=== PATIENT | male | born 1965 | race Two or more races ===

== ENCOUNTER 2023-12-31 22:58 | Emergency (ER) | payer OTHER, MEDICAID ==
[~2023-12-31] VITALS: Ht 182.9 cm; Wt 65.0 kg
[2023-12-31 23:06] VITALS: BP 136/69; PULSE 87; RESP 16; TEMP 97.7; O2SAT 97
== END 2024-01-01 00:57 | disposition home or self-care (01) ==
LOC: ER 22:58
DX: H53.8 Other visual disturbances (principal); R51.9 Headache, unspecified; E11.9 Type 2 diabetes mellitus without complications; I10 Essential (primary) hypertension; E78.5 Hyperlipidemia, unspecified; Z88.0 Allergy status to penicillin
CPT/HCPCS: 82962

== ENCOUNTER 2024-11-04 01:30 | Inpatient (IN) | payer OTHER, MEDICAID ==
[~2024-11-04] VITALS: Ht 165.1 cm; Wt 87.2 kg
[2024-11-04] VITALS (7 sets, daily range): BP systolic 120–141; BP diastolic 61–91; PULSE 65–95; RESP 17–20; TEMP 97.3–97.7; O2SAT 95–98
[~2024-11-04 01:30] MED LIST: ASPI-325 PO; ATOR-47 PO; FURO40TA4 PO; LISI20TA56 PO; METO10TA4 PO; NIFE1TAB31 PO; TAMS0.4C39 PO
--- NOTE | 2024-11-04 02:08 | ED.PDOC ---
History of Present Illness HPI Comments 58-year-old male who came to ER via EMS for testicular swelling. In has history of hypertension, diabetes, congestive heart failure, status post left BKA, right AKA. Patient is wheelchair/bed-bound. For the past 2 weeks noted swelling withdrawal lower extremities/groin area. Denies any fever, nausea, vomiting or urinary symptoms. Noted also decubitus ulcers. Patient also complaining of productive cough for over a year. Denies any acute chest pain or shortness of breath. Chief Complaint: Testicle Pain Time Seen by MD: 02:08 Reviewed Notes: Cutting Table Operator Notes Allergies: Coded Allergies: Penicillins (Verified Allergy, Unknown, 12/31/23) Information Source: Emergency Med Personnel Mode of Arrival: EMS Severity: Moderate Timing: Weeks Duration: Since onset Past Medical History PAST MEDICAL HISTORY: CHF, DM, High Lipids, HTN Surgical History: AKA (right), BKA (left) Family History Family History: Reviewed,noncontributory to illness Social History Smoker: Non-Smoker Alcohol: Denies ETOH Use Drugs: Denies Drug Use Lives In: Home Constitutional: reports: others (Swelling of both lower extremities, groin area); denies: chills, diaphoresis, fatigue, fever, malaise, sweats, weakness EENTM: denies: blurred vision, double vision, ear bleeding, ear discharge, ear drainage, ear pain, ear ringing, eye pain, eye redness, hearing loss, mouth pain, mouth swelling, nasal discharge, nose bleeding, nose congestion, nose pain, photophobia, tearing, throat pain, throat swelling, voice changes, others Respiratory: denies: cough, hemoptysis, orthopnea, SOB at rest, shortness of breath, SOB with excertion, stridor, wheezing, others Cardiovascular: denies: chest pain, dizzy spells, diaphoresis, Dyspnea on exe rtion, edema, irregular heart beat, left arm pain, lightheadedness, palpitations, PND, syncope, others Gastrointestinal: denies: abdomen distended, abdominal pain, blood streaked bowels, constipated, diarrhea, dysphagia, difficulty swallowing, hematemesis, melena, nausea, poor appetite, poor fluid intake, rectal bleeding, rectal pain, vomiting, others Genitourinary: denies: burning, dysuria, flank pain, frequency, hematuria, incontinence, penile discharge, penile sore, pain, testicle pain, testicle swelling, urgency, others Neurological: denies: dizziness, fainting, headache, left sided numbness, left sided weakness, numbness, paresthesia, pre-existing deficit, right sided numbness, right sided weakness, seizure, speech problems, tingling, tremors, weakness, others Musculoskeletal: denies: back pain, gout, joint pain, joint swelling, muscle pain, muscle stiffness, neck pain, others Integumetry: denies: bruises, change in color, change in hair/nails, dryness, laceration, lesions, lumps, rash, wounds, others Allergic/Immunocompromised: denies: Difficulty Healing, Frequent Infections, Hives, Itching, others Hematologic/Lymphatic: denies: anemia, blood clots, easy bleeding, easy bruising, swollen glands, others Endocrine: denies: excessive hunger, excessive sweating, excessive thirst, excessive urination, flushing, intolerance to cold, intolerance to heat, unexplained weight gain, unexplained weight loss, others Psychiatric: denies: anxiety, bipolar disorder, depression, hopeless, panic disorder, schizophrenia, sleepless, suicidal, others Physical Exam General Appearance: No Apparent Distress, Normal HEENT: Normal ENT Inspection, Pharynx Normal, TMs Normal Neck: Full Range of Motion, Non-Tender, Normal, Normal Inspection Respiratory: Chest Non-Tender, Lungs Clear, No Accessory Muscle Use, No Respiratory Distress, Normal Breath Sounds Cardiovascular: No Edema, No JVD, No Murmur, No Gallop, Normal Peripheral Pulses, Regular Rate/Rhythm Breast Exam: Deferred Gastrointestinal: No Organomegaly, Non Tender, No Pulsatile Mass, Normal Bowel Sounds, Soft Genitalia: Deferred Pelvic: Deferred Rectal: Deferred Extremities: No calf tenderness, Normal capillary refill, Normal inspection, Normal range of motion, Non-tender, No pedal edema Musculoskeletal : Apperance: Normal Neurologic: Alert, automatic teller machine servicer II-XII nml as Tested, No Motor Deficits, Normal Affect, Normal Mood, No Sensory Deficits Cerebellar Function: Normal Reflexes: Normal Skin: Dry, Normal Color, Warm Lymphatic: No Adenopathy Was a procedure done? Was a procedure done?: No Differential Dx Considerations may include: Anemia, electrolyte imbalance, sepsis, urinary tract infection, cellulitis, congestive heart failure, orchitis, decubitus ulcer X-Ray, Labs, Meds, VS Vital Signs Date Time Temp Pulse Resp B/P (MAP) Pulse Ox O2 Delivery O2 Flow Rate FiO2 11/04/24 04:00 88 22 140/84 (102) 96 11/04/24 03:55 139/81 11/04/24 03:14 143/88 11/04/24 02:00 95 20 98 Room Air* 0 21 11/04/24 01:55 97.7 93 15 163/91 (115) 97 97.7 11/04/24 01:30 98.6 90 16 141/111 (121) 100 98.6 Lab Test 11/04/24 02:30 Range/Units White Blood Count 11.2 H 4.4-10.8 10^3/uL Red Blood Count 4.89 4.5-5.90 10^6/uL Hemoglobin 15.2 13.5-17.5 g/dL Hematocrit 46.6 41.0-53.0 % Mean Corpuscular Volume 95.2 80.0-100.0 fL Mean Corpuscular Hemoglobin 31.0 28.0-32.0 pg Mean Corpuscular Hemoglobin Concent 32.6 32.0-36.0 g/dL Red Cell Distribution Width 17.1 H 11.8-14.3 % Platelet Count 243 140-450 10^3/uL Mean Platelet Volume 8.9 6.9-10.8 fL Neutrophils (%) (Auto) 86.5 H 37.0-80.0 % Lymphocytes (%) (Auto) 8.3 L 10.0-50.0 % Monocytes (%) (Auto) 4.5 0.0-12.0 % Eosinophils (%) (Auto) 0.3 0.0-7.0 % Basophils (%) (Auto) 0.4 0.0-2.0 % Neutrophils # (Auto) 9.7 H 1.6-8.6 10 ^3/uL Lymphocytes # (Auto) 0.9 0.4-5.4 10 ^3/uL Monocytes # (Auto) 0.5 0-1.3 10 ^3/uL Eosinophils # (Auto) 0 0-0.8 10 ^3/uL Basophils # (Auto) 0 0-0.2 10 ^3/uL Nucleated Red Blood Cells 0.1 % Sodium Level 137 136-145 mmol/L Potassium Level 4.6 3.5-5.1 mmol/L Chloride Level 105 98-107 mmol/L Carbon Dioxide Level 21 20-31 mmol/L Anion Gap 11 5-15 Blood Urea Nitrogen 39 H 9-23 mg/dL Creatinine 1.60 H 0.700-1.30 mg/dL Glomerular Filtration Rate Calc 49 >90 mL/min BUN/Creatinine Ratio 24.4 H 10.0-20.0 Serum Glucose 126 H 74-106 mg/dL Lactic Acid Level 2.8 *H 0.4-2.0 mmol/L Calcium Level 8.8 8.7-10.4 mg/dL Total Bilirubin 1.0 0.2-1.0 mg/dL Aspartate Amino Transferase (AST) 18 13-40 U/L Alanine Aminotransferase (ALT) 11 7-40 U/L Alkaline Phosphatase 365 H 46-116 U/L Troponin I High Sensitivity 12 </=54 ng/L B-Type Natriuretic Peptide 1987.60 0-100 pg/mL Total Protein 7.4 5.7-8.2 g/dL Albumin 3.8 3.2-4.8 g/dL Current Medications Medications (Trade) Dose Ordered Sig/Margo Route Start Time Stop Time Status Last Admin Furosemide (Lasix Injection) 20 mg ONCE ONCE IV 11/04/24 02:15 11/04/24 02:16 DC 11/04/24 03:14 Sodium Chloride 1,000 ml @ 1,000 mls/hr Q1H ONCE IV 11/04/24 03:45 11/04/24 04:44 11/04/24 03:43 Furosemide (Lasix Injection) 40 mg ONCE ONCE IV 11/04/24 03:45 11/04/24 03:46 DC 11/04/24 03:55 Cefazolin Sodium 50 ml @ 100 mls/hr ONCE ONCE IV 11/04/24 03:45 11/04/24 04:14 DC 11/04/24 03:43 Vancomycin HCl 200 ml @ 200 mls/hr ONCE ONCE IV 11/04/24 03:45 11/04/24 04:44 11/04/24 04:19 Time of 1ST Reevaluation: 02:03 Reevaluation 1ST: Unchanged Patient Education/Counseling: Diagnosis, Treatment Family Education/Counseling: No Family Present Sepsis focused exam: focus exam completed (In the initial resuscitation at least 30 mL/kg of IV crystalloid fluid was NOT given within the first 3 hr due to concerns of fluid overload), time: (0400) Sepsis Sepsis Reasesment Focused Exam Sepsis focused exam: focus exam completed (In the initial resuscitation at least 30 mL/kg of IV crystalloid fluid was NOT given within the first 3 hr due to concerns of fluid overload), time: (0400) Departure 1 Departure Time of Disposition: 04:41 Impression: Primary Impression: Acute renal injury Additional Impressions: CHF (congestive heart failure) Cellulitis of both lower extremities Disposition: ADMITTED INPATIENT Condition: Guarded Discharged With: Self Comments Lower Extremity Swelling and Cellulitis Chief Complaint: Bilateral leg stump swelling and scrotal edema History of Present Illness: 58-year-old male with history of bilateral lower extremity amputations (left BKA, right AKA), poorly controlled type 2 diabetes, hypertension, and CHF presents with two weeks of progressive swelling to both leg stumps and scrotum. Patient reports associated redness in both legs. Patient is normally bed bound. The symptoms have been present for approximately two weeks with no reported improvement. Review of Systems: Constitutional: Denies fever or chills Cardiovascular: Positive for leg swelling Skin: Positive for redness of lower extremities All other systems reviewed and negative Medications: Not documented in aids counselor Allergies: Not documented in aids counselor Past Medical History: 1. Type 2 Diabetes Mellitus, poorly controlled 2. Hypertension 3. Congestive Heart Failure Past Surgical History: 1. Left Below Knee Amputation (BKA) 2. Right Above Knee Amputation (AKA) Physical Exam: Lower Extremities: - 2-3+ edema to bilateral leg stumps - Mild erythema to bilateral lower extremities Genitourinary: - Scrotal edema present Lab Results: WBC: 11.2 (Elevated) BUN: 39 Creatinine: 1.6 Glucose: 126 Troponin: 12 (Normal) BNP: 1, 987 (Elevated) Lactic acid: 2.8 (Elevated) Imaging and Other Relevant Results: No imaging studies documented Medical Decision Making: Summary Statement: 58-year-old male with history of bilateral leg amputations, poorly controlled diabetes, and CHF presenting with bilateral leg stump swelling, scrotal edema, and early cellulitis, complicated by acute kidney injury and elevated BNP. Problem List: 1. Cellulitis of bilateral leg stumps 2. Acute kidney injury 3. CHF exacerbation 4. Elevated lactic acid Differential Diagnosis: 1. Cellulitis 2. CHF exacerbation 3. Acute kidney injury 4. DVT 5. Lymphedema ED Course: Patient received 1L IV fluids, Lasix for volume overload, and broad-spectrum antibiotics (Ancef and Vancomycin) for cellulitis. Decision made to admit for further management. Assessment and Plan: 1. Cellulitis of bilateral leg stumps: - Started on IV Ancef and Vancomycin - Monitor response to antibiotics - Elevation of extremities 2. Acute Kidney Injury: - Likely multifactorial from CHF and infection - Monitor fluid status and urine output - Serial creatinine measurements 3. CHF Exacerbation: - Administered IV Lasix - Monitor response to diuresis - Daily weights 4. Elevated Lactic Acid: - Initial fluid resuscitation given - Trending levels Disposition: Admit to medical floor for management of above conditions Billing Information: ICD-10: L03.115 - Cellulitis of right lower limb ICD-10: L03.116 - Cellulitis of left lower limb ICD-10: N17.9 - Acute kidney failure, unspecified ICD-10: I50.9 - Heart failure, unspecified ICD-10: E11.9 - Type 2 diabetes mellitus without complications Critical Care Note Critical Care Time?: Yes (35 min-critical care time only) Critical care comment: Total critical care time: Approximately 36 minutes Due to a high probability of clinically significant, life threatening deterioration, the patient required my highest level of preparedness to interv trent emergently and I personally spent this critical care time directly and personally managing the patient. This critical care time included obtaining a history; examining the patient; pulse oximetry; ordering and review of studies; arranging urgent treatment with development of a management plan; evaluation of patient's response to treatment; frequent reassessment; and, discussions with other providers. This critical care time was performed to assess and manage the high probability of imminent, life-threatening deterioration that could result in multi-organ failure. It was exclusive of separately billable procedures and treating other patients. Stability Stability form required: No Heart Score Heart Score: Heart Score Response (Comments) Value History N/A 0 EKG N/A 0 Age N/A 0 Risk Factors N/A 0 Troponin N/A 0 Total 0 I personally scribed for REBECA RAMOS MD ([email or web address]) on 11/04/24 at 02:08. Electronically submitted by Oswaldo Sullivan ([email or web address]). REBECA RAMOS MD November 04, 2024 02:08
[2024-11-04 02:41] LABS: Basophils # (auto) 0 10 ^3/uL (0-0.2); Basophils % (auto) 0.4 % (0.0-2.0); Eosinophils # (auto) 0 10 ^3/uL (0-0.8); Eosinophils % (auto) 0.3 % (0.0-7.0); Hematocrit 46.6 % (41.0-53.0); Hemoglobin 15.2 g/dL (13.5-17.5); Lymphocytes # (auto) 0.9 10 ^3/uL (0.4-5.4); Lymphocytes % (auto) 8.3 % (10.0-50.0); Mean Corpuscular Hgb Conc. 32.6 g/dL (32.0-36.0); Mean Corpuscular Volume 95.2 fL (80.0-100.0); Monocytes # (auto) 0.5 10 ^3/uL (0-1.3); Monocytes % (auto) 4.5 % (0.0-12.0); Neutrophils # (auto) 9.7 10 ^3/uL (1.6-8.6); Neutrophils % (auto) 86.5 % (37.0-80.0); Nucleated Red Blood Cells % 0.1 %; Platelet Count (auto) 243 10^3/uL (140-450); Red Blood Cells 4.89 10^6/uL (4.5-5.90); Red Cell Distribution Width 17.1 % (11.8-14.3); White Blood Cell 11.2 10^3/uL (4.4-10.8)
[2024-11-04 02:59] LABS: Alanine Aminotransferase 11 U/L (7-40); Albumin 3.8 g/dL (3.2-4.8); Anion Gap 11 (5-15); Aspartate Aminotransferase 18 U/L (13-40); BUN/Creatinine Ratio 24.4 (10.0-20.0); Calcium 8.8 mg/dL (8.7-10.4); Carbon Dioxide 21 mmol/L (20-31); Chloride 105 mmol/L (98-107); Potassium 4.6 mmol/L (3.5-5.1); Sodium 137 mmol/L (136-145); Total Protein 7.4 g/dL (5.7-8.2)
[2024-11-04 03:00] LABS: Alkaline Phosphatase 365 U/L (46-116); Blood Urea Nitrogen 39 mg/dL (9-23); Glucose 126 mg/dL (74-106)
[2024-11-04] MEDS: FUROSEMIDE 20 MG/2 ML VIAL IV ONE (03:14)
[2024-11-04 03:28] LABS: Lactic Acid w/Reflex 2.8 mmol/L (0.4-2.0)
[2024-11-04] MEDS: ceFAZolin 1GM/50ML 50 ML IV ONE (03:43)
[2024-11-04] MEDS: SODIUM CHLORIDE 0.9% 1,000 ML IV ONE (03:43)
[2024-11-04] MEDS: FUROSEMIDE 40 MG/4 ML VIAL IV ONE (03:55)
--- NOTE | 2024-11-04 04:16 | DVH ---
CHEST RADIOGRAPH Indication: CHF Technique: Single frontal view of the chest was obtained Comparison: None IMPRESSION: The heart appears enlarged median sternotomy wires and postsurgical changes. There is airspace opacif ication of the right lower lobe with possible small to moderate right pleural effusion. Small left p leural effusion. Mild pulmonary vascular congestion. No pneumothorax.
[2024-11-04] MEDS: VANCOMYCIN 1GM/200ML PM 200 ML IV ONE (04:19)
[2024-11-04 05:16] LABS: Urine Bacteria None Seen /hpf (None Seen)
[2024-11-04 05:28] LABS: Urine Blood 1+ /uL (Negative); Urine Clarity Clear (Clear); Urine Color Light-Yellow (Yellow); Urine Protein, UAD 1+ (Negative); Urine Specific Gravity 1.013 (1.001-1.035); Urine Squamous Epithelial Cell FEW /hpf (<5); Urine Urobilinogen Normal (Negative); Urine WBC < 1 /HPF (0-3)
[2024-11-04] MEDS ORDERED: HYDROcodone-ACET 5/325MG TAB PO PRN (05:45)
[2024-11-04] MEDS ORDERED: hydrALAZINE HCL 20 MG/ML VL IV PRN (05:45)
[2024-11-04] MEDS ORDERED: NITROGLYCERIN 0.4 MG SL TAB SL PRN (05:45)
[2024-11-04] MEDS ORDERED: DEXTROSE (50%) 50ML SYRG IV PRN (05:45)
[2024-11-04] MEDS ORDERED: VANCOMYCIN PER PHARMACY 0 MG IV SCH (05:45)
[2024-11-04] MEDS ORDERED: DOCUSATE SOD 100 MG CAP PO PRN (05:45)
[2024-11-04] MEDS ORDERED: ACETAMINOPHEN 325 MG TAB PO PRN (05:45)
[2024-11-04] MEDS ORDERED: MORPHINE SULFATE INJ 2 MG/ml SYRG IV PRN (05:45)
[2024-11-04] MEDS ORDERED: ONDANSETRON HCL 4 MG/2 ML VIAL IV PRN (05:45)
--- NOTE | 2024-11-04 06:03 | DVHHP2 ---
History of Present Illness Reason for Visit: Acute exacerbation of congestive heart failure History of Present Illness The patient is a 58-year-old male wheelchair/bed-bound with past medical history of CHF, DM, hyperlipidemia, and hypertension who presented to [facility] ED with complaint of testicular swelling. Patient reports swelling of the lower extremities and groin area for the past 2 weeks, getting worse today that prompted this visit. Patient was seen and evaluated in the ED, laboratory data shows WBC 11.2, platelets 243, sodium 137, potassium 4.6, BUN 39, creatinine 1.60, glucose 126, troponin 12, lactic acid 2.5 trending down, BNP 1987.60, blood pressure 140/84, heart rate 88, temperature 97.7 F, O2 saturation 96% on oxygen. Chest x-ray revealing airspace opacification of the right lower lobe with possible small to moderate right pleural effusion, small left pleural effusion, mild pulmonary vascular congestion, no pneumothorax, h eart appears enlarged median sternotomy wires and postsurgical changes. Patient was started on IV Lasix, please see medication orders section in the computer. On my assessment, patient denied chest pain, no headache, no dizziness, no diaphoresis, currently on oxygen, no nausea, no vomiting, no fever, no chills. Patient was admitted for further evaluation and medical management. Past Medical History CHF, DM, High Lipids, HTN Past Surgical History Above-knee amputation (right), Below-knee amputation (left) Family History Reviewed, noncontributory to the management of this case. Past Social History The patient lives at home, denies smoking, alcohol or illicit drugs abuse. Review of Systems Constitutional: Yes: Weakness; No: Fever, Chills, Sweats, Malaise, Other Eyes: No: Pain, Vision change, Conjunctivae inflammation, Eyelid inflammation, Other, Redness ENT: No: Ear pain, Ear discharge, Nose pain, Nose discharge, Nose congestion, Mouth pain, Mouth swelling, Throat pain, Throat swelling, Other Respiratory: No: Cough, Dry, Shortness of breath, SOB with excertion, Wheezing, Hemoptysis, Pleuritic Pain, Sputum, Wheezing, Other Cardiovascular: Edema; No: Chest Pain, Palpitations, Orthopnea, Paroxysmal Noc. Dyspnea, Lt Headedness, Other Gastrointestinal: No: Nausea, Vomiting, Abdominal Pain, Diarrhea, Constipation, Melena, Hematochezia, Other Genitourinary: No Dysuria, No Frequency, No Incontinence, No Hematuria, No Retention; Other (Testicular swelling) Musculoskeletal: other (Right AKA, left BKA.); No: neck pain, shoulder pain, arm pain, back pain, hand pain, leg pain, foot pain Skin: Other (Lower extremity skin redness); No: Rash, Lesions, Jaundice, Bruising Neurological: No: Weakness, Numbness, Incoordination, Change in speech, Confusion, Seizures, Other Allergies: Coded Allergies: Penicillins (Verified Allergy, Unknown, 12/31/23) Exam Vital Signs Vital Signs Date Time Temp Pulse Resp B/P (MAP) Pulse Ox O2 Delivery O2 Flow Rate FiO2 11/04/24 04:00 88 22 140/84 (102) 96 11/04/24 02:00 Room Air* 0 21 11/04/24 01:55 97.7 97.7 General Appearance: Alert, Oriented X3, Cooperative, No acute distress HEENT: Atraumatic, PERRLA, EOMI, Mucous membr. moist/pink Respiratory: Normal air movement, Other (Congestion) Cardiovascular: Regular rate, Normal S1, Normal S2, No murmurs Abdominal: Normal bowel sounds, Soft, No tenderness, No hepatospenomegaly, No masses Extremities: No clubbing, No cyanosis, No edema, Normal pulses, Other (Lower extremity swelling) Skin: No rashes, No breakdown, No significant lesion Neuro: Normal speech, Normal tone, Sensation intact, Cranial nerves 3-12 NL, Reflexes 2+, Other (Generalized weakness) Psych/Mental Status: Mental status NL, Mood NL Labs/Xrays Labs Test 11/04/24 05:16 11/04/24 04:46 11/04/24 02:30 Range/Units Urine Color Light-yellow Yellow Urine Clarity Clear Clear Urine pH 5.0 5.0-9.0 Urine Specific [place] 1.013 1.001-1.035 Urine Protein 1+ H Negative Urine Ketones Negative Negative Urine Blood 1+ H Negative /uL Urine Nitrite Negative Negative Urine Bilirubin Negative Negative Urine Urobilinogen Normal Negative mg/dL Urine Leukocyte Esterase Negative Negative /uL Urine RBC 2 0 - 3 /hpf Urine Microscopic WBC < 1 0-3 /HPF Urine Squamous Epithelial Cells Few <5 /hpf Urine Bacteria None seen None Seen /hpf Urine Glucose Normal Normal mg/dL Lactic Acid Level 2.5 *H 0.4-2.0 mmol/L White Blood Count 11.2 H 4.4-10.8 10^3/uL Red Blood Count 4.89 4.5-5.90 10^6/uL Hemoglobin 15.2 13.5-17.5 g/dL Hematocrit 46.6 41.0-53.0 % Mean Corpuscular Volume 95.2 80.0-100.0 fL Mean Corpuscular Hemoglobin 31.0 28.0-32.0 pg Mean Corpuscular Hemoglobin Concent 32.6 32.0-36.0 g/dL Red Cell Distribution Width 17.1 H 11.8-14.3 % Platelet Count 243 140-450 10^3/uL Mean Platelet Volume 8.9 6.9-10.8 fL Neutrophils (%) (Auto) 86.5 H 37.0-80.0 % Lymphocytes (%) (Auto) 8.3 L 10.0-50.0 % Monocytes (%) (Auto) 4.5 0.0-12.0 % Eosinophils (%) (Auto) 0.3 0.0-7.0 % Basophils (%) (Auto) 0.4 0.0-2.0 % Neutrophils # (Auto) 9.7 H 1.6-8.6 10 ^3/uL Lymphocytes # (Auto) 0.9 0.4-5.4 10 ^3/uL Monocytes # (Auto) 0.5 0-1.3 10 ^3/uL Eosinophils # (Auto) 0 0-0.8 10 ^3/uL Basophils # (Auto) 0 0-0.2 10 ^3/uL Nucleated Red Blood Cells 0.1 % Sodium Level 137 136-145 mmol/L Potassium Level 4.6 3.5-5.1 mmol/L Chloride Level 105 98-107 mmol/L Carbon Dioxide Level 21 20-31 mmol/L Anion Gap 11 5-15 Blood Urea Nitrogen 39 H 9-23 mg/dL Creatinine 1.60 H 0.700-1.30 mg/dL Glomerular Filtration Rate Calc 49 >90 mL/min BUN/Creatinine Ratio 24.4 H 10.0-20.0 Serum Glucose 126 H 74-106 mg/dL Calcium Level 8.8 8.7-10.4 mg/dL Total Bilirubin 1.0 0.2-1.0 mg/dL Aspartate Amino Transferase (AST) 18 13-40 U/L Alanine Aminotransferase (ALT) 11 7-40 U/L Alkaline Phosphatase 365 H 46-116 U/L Troponin I High Sensitivity 12 </=54 ng/L B-Type Natriuretic Peptide 1987.60 0-100 pg/mL Total Protein 7.4 5.7-8.2 g/dL Albumin 3.8 3.2-4.8 g/dL PATIENT: JAGRUTI JEREZ GACCT: [id number] UNIT: [id number] : 1965 LOC: ER ROOM / BED: / AGE / SEX: 58 / M ADM STATUS: REG ER SERVICE 1 ORDERING PHYSICIAN: REBECA RAMOS MD PROCEDURE(s): CXRP - CHEST PORTABLE REASON: CHF ORDER NUMBER(s): [id number], ACCESSION NUMBER(s): [id number] CHEST RADIOGRAPH Indication: CHF Technique: Single frontal view of the chest was obtained Comparison: None IMPRESSION: The heart appears enlarged median sternotomy wires and postsurgical changes. There is airspace opacification of the right lower lobe with possible small to moderate right pleural effusion. Small left pleural effusion. Mild pulmonary vascular congestion. No pneumothorax. Assessment/Plan Assessment/Plan Acute exacerbation of congestive heart failure Generalized weakness Acute renal injury Sepsis, unspecified organism Cellulitis of both lower extremities Plan 1. Admit to telemetry unit 2. Breathing treatment 3. Pain control management 4. IV antibiotic management 5. Management of fluids and electrolytes 6. Consultation for hospitalist/wound care 7. Diagnostic test chest x-ray 8. DVT prophylaxis-on aspirin 9. Repeat labs CBC, CMP in a.m. 10. Home medication reviewed and reconciled 11. Continue with current medical management 12. Treatment plan discussed with patient and RN. Patient verbalized understanding. Plan discussed with: Patient, Other (RN) Problem List: (1) Acute exacerbation of congestive heart failure (2) Acute renal injury (3) Cellulitis of both lower extremities (4) Sepsis, unspecified organism (5) Generalized weakness Date of Service: November 04, 2024 Billing Provider: DUANE LÓPEZ DNP Common Visit Codes: [id number]-[id number] INP/OBS CARE (HIGH) DUANE LÓPEZ DNP November 04, 2024 06:03
[2024-11-04] MEDS: SODIUM CHLOR 0.9% PF (SALINE LOCK) 10ML VIAL/SYR IV SCH (06:04)
[2024-11-04] MEDS: InsuLIN REG 1unit/0.01ml Soln (100units/ml) SC SCH (07:00)
[2024-11-04] MEDS: ACCU-CHEK COMFORT CURVE STRIP VI SCH (07:05)
[2024-11-04] MEDS: ceFAZolin 1GM/50ML 50 ML IV SCH (08:35)
[2024-11-04] MEDS: FUROSEMIDE 40 MG/4 ML VIAL IV SCH (10:46)
[2024-11-04] MEDS: amLODIPine BESYLATE 5 MG TAB PO SCH (10:47)
[2024-11-04] MEDS: ASPirin 81 mg TAB PO SCH (10:47)
[2024-11-04] MEDS: CARVEDILOL 3.125 MG TAB PO SCH (10:48)
--- NOTE | 2024-11-04 12:17 | DVHPN2 ---
Reviewed: Care Plan, H&P, Labs, Medications, Previous Orders, Radiology Changes from previous H/P or p: No Changes Eyes: No Pain, No Vision change, No Conjunctivae inflammation, No Eyelid inflammation, No Other, No Redness ENT: No Ear pain, No Ear discharge, No Nose pain, No Nose discharge, No Nose congestion, No Mouth pain, No Mouth swelling, No Throat pain, No Throat swelling, No Other Cardiovascular: No Chest Pain, No Palpitations, No Orthopnea, No Paroxysmal Noc. Dyspnea; Edema; No Lt Headedness, No Other Respiratory: No Cough, No Dry, No Shortness of breath, No SOB with excertion, No Wheezing, No Hemoptysis, No Pleuritic Pain, No Sputum, No Other Gastrointestinal: No Nausea, No Vomiting, No Abdominal Pain, No Diarrhea, No Constipation, No Melena, No Hematochezia, No Other Genitourinary: No Dysuria, No Frequency, No Incontinence, No Hematuria, No Retention; Other (Testicular swelling) Musculoskeletal: other (Right AKA, left BKA.); No neck pain, No shoulder pain, No arm pain, No back pain, No hand pain, No leg pain, No foot pain Skin: No Rash, No Lesions, No Jaundice, No Bruising; Other (Lower extremity skin redness) Objective Vitals Vital Signs Date Time Temp Pulse Resp B/P (MAP) Pulse Ox O2 Delivery O2 Flow Rate FiO2 11/04/24 10:48 89 141/91 11/04/24 09:18 97.3 17 97 97.3 11/04/24 08:00 Room Air* 0 21 Intake/Output Intake and Output 11/04/24 07:00 Intake Total 1250 ml Output Total 830 ml Balance 420 ml Intake Oral 0 ml IV Total 1250 ml Output Urine Total 830 ml Stool Total 0 ml # Voids 2 Medications Current Medications Medications Dose Ordered Sig/Margo Route Start Time Stop Time Status Last Admin Dose Admin Vancomycin HCl 0 ml @ 0 mls/hr UD IV 11/04/24 05:45 Furosemide 40 mg DAILY IV 11/04/24 10:00 11/04/24 10:46 40 MG Atorvastatin Calcium 20 mg HS PO 11/04/24 22:00 Carvedilol 6.25 mg Q12HR PO 11/04/24 10:00 11/04/24 10:48 6.25 MG Hydralazine HCl 10 mg Q6HP PRN IV 11/04/24 05:45 Amlodipine Besylate 5 mg DAILY PO 11/04/24 10:00 11/04/24 10:47 5 MG Aspirin 81 mg DAILY PO 11/04/24 10:00 11/04/24 10:47 81 MG Tamsulosin HCl 0.4 mg QPM PO 11/04/24 18:00 Diagnostic Test (Pha) 1 strip ACHS 11/04/24 07:00 11/04/24 11:25 1 STRIP Insulin Human Regular ACHS SC 11/04/24 07:00 Dextrose 50 ml UD PRN IV 11/04/24 05:45 Sodium Chloride 10 ml Q8HR IV 11/04/24 06:00 11/04/24 06:04 10 ML Acetaminophen/ Hydrocodone Bitart 1 tab Q4HP PRN PO 11/04/24 05:45 Ondansetron HCl 4 mg Q4HP PRN IV 11/04/24 05:45 Docusate Sodium 100 mg BIDPRN PRN PO 11/04/24 05:45 Acetaminophen 650 mg Q6HP PRN PO 11/04/24 05:45 Nitroglycerin 0.4 mg Q5MINP PRN SL 11/04/24 05:45 Morphine Sulfate 2 mg Q30M PRN IV 11/04/24 05:45 Cefazolin Sodium 50 ml @ 100 mls/hr Q8HR IV 11/04/24 06:00 11/04/24 08:35 100 MLS/HR Vancomycin HCl 150 ml @ 150 mls/hr Q18H IV 11/04/24 22:00 Laboratory Results Laboratory Tests 11/04/24 02:30 Chemistry Test 11/04/24 02:30 Albumin 3.8 g/dL (3.2-4.8) Calcium Level 8.8 mg/dL (8.7-10.4) Total Protein 7.4 g/dL (5.7-8.2) Cardiac Markers Test 11/04/24 02:30 B-Type Natriuretic Peptide 1987.60 pg/mL (0-100) LFT Test 11/04/24 02:30 Alanine Aminotransferase (ALT) 11 U/L (7-40) Alkaline Phosphatase 365 U/L (46-116) H Aspartate Amino Transferase (AST) 18 U/L (13-40) Total Bilirubin 1.0 mg/dL (0.2-1.0) Urinalysis Test 11/04/24 05:16 Urine Color Light-yellow (Yellow) Urine Clarity Clear (Clear) Urine pH 5.0 (5.0-9.0) Urine Specific [place] 1.013 (1.001-1.035) Urine Protein 1+ (Negative) H Urine Ketones Negative (Negative) Urine Blood 1+ /uL (Negative) H Urine Nitrite Negative (Negative) Urine Bilirubin Negative (Negative) Urine Urobilinogen Normal mg/dL (Negative) Urine Leukocyte Esterase Negative /uL (Negative) Urine RBC 2 /hpf (0 - 3) Urine Microscopic WBC < 1 /HPF (0-3) Urine Squamous Epithelial Cells Few /hpf (<5) Urine Bacteria None seen /hpf (None Seen) Urine Glucose Normal mg/dL (Normal) Labs and/or images reviewed: Labs reviewed by me, Image(s) reviewed by me Assessment/Plan Assessment/Plan Sepsis secondary to bilateral lower extremity cellulitis Acute exacerbation of congestive heart failure with BNP 1.9 K Lasix Coreg cardiology consult for Dr. Garcia echocardiogram result pending Generalized weakness Coronary Artery disease status post CABG Acute kidney injury Controlled diabetes: Insulin sliding scale Sepsis, unspecified organism Cellulitis of bilateral thighs: Zosyn vancomycin Hypertension: Amlodipine Hypercholesterolemia: Lipitor History of right AKA History of left BKA Patient is wheelchair-bound Time Spent 70 minutes Advanced care planning time 20 minutes Patient is full code Plan discussed with: Patient Date of Service: November 04, 2024 Billing Provider: GERARDO DOUGLAS MD Common Visit Codes: [id number] CARE 30-74 MIN GERARDO DOUGLAS MD November 04, 2024 12:17
--- NOTE | 2024-11-04 17:11 | DVHSR ---
APPROVED REPORT EXAM: Two-dimensional and M-mode echocardiogram with Doppler and color Doppler. Blood Pressure: 149/90 mmHg INDICATION chf exacerbation, unspecified Surgery/Intervention CABG: RISK FACTORS Obesity: Height: 5'5, Weight: 200 DIMENSIONS LVDd4.9 (3.8-5.7cm)LA (2D)4.4 (1.9-4.0cm)Aortic Root3.0 (2.0-3.7cm) LVDs4.1 (2.5-4.0cm)LA (MM) (1.9-4.0cm)Aortic Cusp Exc1.2 (1.5-2.0cm) EF (%) 18.0 (55-70%)Rt. Atrium4.6 (1.9-4.0cm)Asc. Aorta3.1 cm IVSd0.9 (0.7-1.1cm)RV (D)5.0 (1.8-2.4cm) PWd1.0 (0.7-1.1cm) Mitral Valve MitralMitral Stenosis E wave1.15m/sMV Mean GR.mmHg A wave0.49m/sMV Peak GR.110mmHg E/A ratio2.32D MVAcm2 DECEL [id number] 1/2 [place] Aortic Valve Aortic ValveAortic Stenosis V10.62m/[place] Mean GR.3mmHg V21.00m/[place] Peak GR.4mmHg LVOT Diameter1.7 (1.8-2.4cm)Doppler AVA1.41cm2 Pulmonic Valve V20.74m/s Tricuspid Valve TR Velocity3.04m/s [id number] Other Information Quality : Technically LimitedRhythm : Technically limited study due to body habitus.patient position. Conclusion Technically good study. Sinus rhythm. Biatrial and biventricular enlargement. Mild aortic sclerosis. Aortic leaflet thickening without diminished excursion. Good excursion of th e aortic leaflets. The mitral and tricuspid as well as the pulmonic or structurally normal. Left ventricular systolic function is diminished. EF is approximately 15% at best. Right ventricula r function is [id number] diminished. Moderate to severe mitral insufficiency. Moderate pulmonic insufficiency. Moderate tricuspid regurg itation. Moderate elevation in pulmonary pressures. No pericardial effusion masses or vegetations.
[2024-11-04] MEDS: TAMSULOSIN HYDROCHLORIDE 0.4 MG CAP PO SCH (17:56)
[2024-11-04] MEDS: VANCOMYCIN 750mg/150ml 150 ML IV SCH (22:17)
[2024-11-04] MEDS: ATORVASTATIN 20 MG TAB PO SCH (22:19)
--- NOTE | 2024-11-04 22:37 | DVHINCON2 ---
Date of service: November 04, 2024 Referring Physician Abel Reason for Consultation CHF Exacerbation History of Present Illness This is a 58-year-old male who is wheelchair/bed-bound with a past medical history of CHF, DM, hyperlipidemia, and hypertension who presented to the ED on 11/04 with complaint of testicular and LE swelling x 2 weeks. WBC 11.2, PLT 243, NA 137, K 4.6, BUN 39, GARMENT SORTER 1.60, GLUC 126, TROP 12, LA 2.5, BNP 1987.60. Chest x-ray shows airspace opacification of the right lower lobe with possible small to moderate right pleural effusion, small left pleural effusion, mild pulmonary vascular congestion. Patient was admitted to the hospital. I am asked to consult on this patient. Allergies: Coded Allergies: Penicillins (Verified Allergy, Unknown, 12/31/23) Current Medications Current Medications Medications (Trade) Dose Ordered Sig/Margo Route PRN Reason Start Time Stop Time Status Last Admin Vancomycin HCl 0 ml @ 0 mls/hr UD IV 11/04/24 05:45 Furosemide (Lasix Injection) 40 mg DAILY IV 11/04/24 10:00 11/04/24 10:46 Atorvastatin Calcium (Lipitor) 20 mg HS PO 11/04/24 22:00 Carvedilol (Coreg Tablet) 6.25 mg Q12HR PO 11/04/24 10:00 11/04/24 10:48 Hydralazine HCl (Apresoline Injection) 10 mg Q6HP PRN IV SBP>150 11/04/24 05:45 Amlodipine Besylate (Norvasc Tablet) 5 mg DAILY PO 11/04/24 10:00 11/04/24 10:47 Aspirin 81 mg DAILY PO 11/04/24 10:00 11/04/24 10:47 Tamsulosin HCl (Flomax) 0.4 mg QPM PO 11/04/24 18:00 Diagnostic Test (Pha) (Accu-Chek Comfort Curve T) 1 strip ACHS 11/04/24 07:00 11/04/24 11:25 Insulin Human Regular (InsuLIN R) ACHS SC 11/04/24 07:00 Dextrose 50 ml UD PRN IV Blood Sugar LESS THAN 60 11/04/24 05:45 Sodium Chloride (Saline Lock Ns) 10 ml Q8HR IV 11/04/24 06:00 11/04/24 06:04 Acetaminophen/ Hydrocodone Bitart ([place] 5/325MG Tab) 1 tab Q4HP PRN PO MODERATE PAIN (4-6 PAIN SCALE) 11/04/24 05:45 Ondansetron HCl (Zofran) 4 mg Q4HP PRN IV NAUSEA / VOMITING 11/04/24 05:45 Docusate Sodium (Colace Capsule) 100 mg BIDPRN PRN PO FOR CONSTIPATION 11/04/24 05:45 Acetaminophen (Tylenol Tablet) 650 mg Q6HP PRN PO PAIN SCALE 1-3 OR TEMP>100.4 11/04/24 05:45 Nitroglycerin (Ntrostat Sublingual) 0.4 mg Q5MINP PRN SL FOR CHEST PAIN 11/04/24 05:45 Morphine Sulfate 2 mg Q30M PRN IV FOR CHEST PAIN 11/04/24 05:45 Cefazolin Sodium 50 ml @ 100 mls/hr Q8HR IV 11/04/24 06:00 11/04/24 08:35 Vancomycin HCl 150 ml @ 150 mls/hr Q18H IV 11/04/24 22:00 Review of Systems Constitutional: reports: others (Swelling of both lower extremities, groin area); denies: chills, diaphoresis, fatigue, fever, malaise, sweats, weakness EENTM: denies: blurred vision, double vision, ear bleeding, ear discharge, ear drainage, ear pain, ear ringing, eye pain, eye redness, hearing loss, mouth pain, mouth swelling, nasal discharge, nose bleeding, nose congestion, nose pain, photophobia, tearing, throat pain, throat swelling, voice changes, others Respiratory: denies: cough, hemoptysis, orthopnea, SOB at rest, shortness of breath, SOB with excertion, stridor, wheezing, others Cardiovascular: denies: chest pain, dizzy spells, diaphoresis, Dyspnea on exertion, edema, irregular heart beat, left arm pain, lightheadedness, palpitations, PND, syncope, others Gastrointestinal: denies: abdomen distended, abdominal pain, blood streaked bowels, constipated, diarrhea, dysphagia, difficulty swallowing, hematemesis, melena, nausea, poor appetite, poor fluid intake, rectal bleeding, rectal pain, vomiting, others Genitourinary: denies: burning, dysuria, flank pain, frequency, hematuria, incontinence, penile discharge, penile sore, pain, testicle pain, testicle swelling, urgency, others Neurological: denies: dizziness, fainting, headache, left sided numbness, left sided weakness, numbness, paresthesia, pre-existing deficit, right sided numbness, right sided weakness, seizure, speech problems, tingling, tremors, weakness, others Musculoskeletal: denies: back pain, gout, joint pain, joint swelling, muscle pain, muscle stiffness, neck pain, others Integumetry: denies: bruises, change in color, change in hair/nails, dryness, laceration, lesions, lumps, rash, wounds, others Allergic/Immunocompromised: denies: Difficulty Healing, Frequent Infections, Hives, Itching, others Hematologic/Lymphatic: denies: anemia, blood clots, easy bleeding, easy bruising, swollen glands, others Endocrine: denies: excessive hunger, excessive sweating, excessive thirst, excessive urination, flushing, intolerance to cold, intolerance to heat, unexplained weight gain, unexplained weight loss, others Psychiatric: denies: anxiety, bipolar disorder, depression, hopeless, panic disorder, schizophrenia, sleepless, suicidal, others Vital Signs Vital Signs Date Time Temp Pulse Resp B/P (MAP) Pulse Ox O2 Delivery O2 Flow Rate FiO2 11/04/24 10:48 89 141/91 11/04/24 09:18 97.3 17 97 97.3 11/04/24 08:00 Room Air* 0 21 Physical Exam GENERAL: Alert and oriented x 3. No acute distress. EYES: PERRL, EOMI. Anicteric. HENT: Moist mucous membranes. LUNGS: Clear to auscultation bilaterally. CARDIOVASCULAR: Regular rate and rhythm. ABDOMEN: Soft, nontender and nondistended. EXTREMITIES: BLE edema. NEUROLOGIC: No focal neurological deficits. SKIN: Warm, dry. Labs/Diagnostic Data Labs Test 11/04/24 11:16 11/04/24 05:16 11/04/24 04:46 11/04/24 02:30 Range/Units POC Glucose 103 70-106 mg/dl Urine Color Light-yellow Yellow Urine Clarity Clear Clear Urine pH 5.0 5.0-9.0 Urine Specific [place] 1.013 1.001-1.035 Urine Protein 1+ H Negative Urine Ketones Negative Negative Urine Blood 1+ H Negative /uL Urine Nitrite Negative Negative Urine Bilirubin Negative Negative Urine Urobilinogen Normal Negative mg/dL Urine Leukocyte Esterase Negative Negative /uL Urine RBC 2 0 - 3 /hpf Urine Microscopic WBC < 1 0-3 /HPF Urine Squamous Epithelial Cells Few <5 /hpf Urine Bacteria None seen None Seen /hpf Urine Glucose Normal Normal mg/dL Lactic Acid Level 2.5 *H 0.4-2.0 mmol/L White Blood Count 11.2 H 4.4-10.8 10^3/uL Red Blood Count 4.89 4.5-5.90 10^6/uL Hemoglobin 15.2 13.5-17.5 g/dL Hematocrit 46.6 41.0-53.0 % Mean Corpuscular Volume 95.2 80.0-100.0 fL Mean Corpuscular Hemoglobin 31.0 28.0-32.0 pg Mean Corpuscular Hemoglobin Concent 32.6 32.0-36.0 g/dL Red Cell Distribution Width 17.1 H 11.8-14.3 % Platelet Count 243 140-450 10^3/uL Mean Platelet Volume 8.9 6.9-10.8 fL Neutrophils (%) (Auto) 86.5 H 37.0-80.0 % Lymphocytes (%) (Auto) 8.3 L 10.0-50.0 % Monocytes (%) (Auto) 4.5 0.0-12.0 % Eosinophils (%) (Auto) 0.3 0.0-7.0 % Basophils (%) (Auto) 0.4 0.0-2.0 % Neutrophils # (Auto) 9.7 H 1.6-8.6 10 ^3/uL Lymphocytes # (Auto) 0.9 0.4-5.4 10 ^3/uL Monocytes # (Auto) 0.5 0-1.3 10 ^3/uL Eosinophils # (Auto) 0 0-0.8 10 ^3/uL Basophils # (Auto) 0 0-0.2 10 ^3/uL Nucleated Red Blood Cells 0.1 % Sodium Level 137 136-145 mmol/L Potassium Level 4.6 3.5-5.1 mmol/L Chloride Level 105 98-107 mmol/L Carbon Dioxide Level 21 20-31 mmol/L Anion Gap 11 5-15 Blood Urea Nitrogen 39 H 9-23 mg/dL Creatinine 1.60 H 0.700-1.30 mg/dL Glomerular Filtration Rate Calc 49 >90 mL/min BUN/Creatinine Ratio 24.4 H 10.0-20.0 Serum Glucose 126 H 74-106 mg/dL Calcium Level 8.8 8.7-10.4 mg/dL Total Bilirubin 1.0 0.2-1.0 mg/dL Aspartate Amino Transferase (AST) 18 13-40 U/L Alanine Aminotransferase (ALT) 11 7-40 U/L Alkaline Phosphatase 365 H 46-116 U/L Troponin I High Sensitivity 12 </=54 ng/L B-Type Natriuretic Peptide 1987.60 0-100 pg/mL Total Protein 7.4 5.7-8.2 g/dL Albumin 3.8 3.2-4.8 g/dL Assessment Sepsis secondary to bilateral lower extremity cellulitis. Acute exacerbation of congestive heart failure. Generalized weakness. CAD status post CABG. Acute kidney injury. Controlled diabetes. Cellulitis of bilateral thighs. Hypertension. Hypercholesterolemia. History of right AKA. History of left BKA. Patient is wheelchair-bound. Plan/Recommendation I agree with your ongoing assessment and care of plan. Telemetry reviewed. Echocardiogram. Morphine and [place] for pain management. Amlodipine, Coreg. Aspirin, Lipitor. IV antibiotics as ordered. Diuretics with Lasix. IV Hydralazine for SBP >150. Additional plan as per the hospital course. A total of 45 minutes was spent reviewing the patient record, examining the patient, making a diagnostic and therapeutic plan, discussing this plan with medical personnel, following up on diagnostic studies and following the patient for clinical stability excluding any and all procedures. At least 50% of this time was spent in direct, [id number] contact. Plan discussed with: Patient RAPHEAL CHEN MD November 04, 2024 12:44
[2024-11-05] VITALS (8 sets, daily range): BP systolic 109–129; BP diastolic 57–74; PULSE 56–69; RESP 14–18; TEMP 97.4–97.6; O2SAT 96–100
[2024-11-05 05:04] LABS: Basophils # (auto) 0.1 10 ^3/uL (0-0.2); Basophils % (auto) 1.3 % (0.0-2.0); Eosinophils # (auto) 0.1 10 ^3/uL (0-0.8); Eosinophils % (auto) 1.2 % (0.0-7.0); Hematocrit 38.1 % (41.0-53.0); Hemoglobin 12.6 g/dL (13.5-17.5); Lymphocytes # (auto) 0.9 10 ^3/uL (0.4-5.4); Lymphocytes % (auto) 11.8 % (10.0-50.0); Mean Corpuscular Hemoglobin 31.4 pg (28.0-32.0); Mean Corpuscular Hgb Conc. 33.2 g/dL (32.0-36.0); Mean Corpuscular Volume 94.6 fL (80.0-100.0); Monocytes # (auto) 0.5 10 ^3/uL (0-1.3); Monocytes % (auto) 6.9 % (0.0-12.0); Neutrophils # (auto) 5.9 10 ^3/uL (1.6-8.6); Neutrophils % (auto) 78.8 % (37.0-80.0); Nucleated Red Blood Cells % 0.1 %; Platelet Count (auto) 247 10^3/uL (140-450); Red Blood Cells 4.02 10^6/uL (4.5-5.90); Red Cell Distribution Width 17.4 % (11.8-14.3); White Blood Cell 7.5 10^3/uL (4.4-10.8)
[2024-11-05 07:44] LABS: Anion Gap 10 (5-15); Aspartate Aminotransferase 16 U/L (13-40); BUN/Creatinine Ratio 24.3 (10.0-20.0); Carbon Dioxide 22 mmol/L (20-31); Chloride 105 mmol/L (98-107); Glucose 96 mg/dL (74-106); Potassium 4.5 mmol/L (3.5-5.1); Sodium 137 mmol/L (136-145); Total Protein 6.4 g/dL (5.7-8.2)
[2024-11-05 07:45] LABS: Bilirubin, Total 0.6 mg/dL (0.2-1.0)
[2024-11-05 07:46] LABS: Alanine Aminotransferase < 9 U/L (7-40); Albumin 3.1 g/dL (3.2-4.8); Alkaline Phosphatase 274 U/L (46-116); Blood Urea Nitrogen 36 mg/dL (9-23); Calcium 8.3 mg/dL (8.7-10.4)
--- NOTE | 2024-11-05 08:01 | DVHPN2 ---
Reviewed: Care Plan, H&P, Labs, Medications, Previous Orders, Radiology Changes from previous H/P or p: No Changes Eyes: No Pain, No Vision change, No Conjunctivae inflammation, No Eyelid inflammation, No Other, No Redness ENT: No Ear pain, No Ear discharge, No Nose pain, No Nose discharge, No Nose congestion, No Mouth pain, No Mouth swelling, No Throat pain, No Throat swelling, No Other Cardiovascular: No Chest Pain, No Palpitations, No Orthopnea, No Paroxysmal Noc. Dyspnea; Edema; No Lt Headedness, No Other Respiratory: No Cough, No Dry, No Shortness of breath, No SOB with excertion, No Wheezing, No Hemoptysis, No Pleuritic Pain, No Sputum, No Other Gastrointestinal: No Nausea, No Vomiting, No Abdominal Pain, No Diarrhea, No Constipation, No Melena, No Hematochezia, No Other Genitourinary: No Dysuria, No Frequency, No Incontinence, No Hematuria, No Retention; Other (Testicular swelling) Musculoskeletal: other (Right AKA, left BKA.); No neck pain, No shoulder pain, No arm pain, No back pain, No hand pain, No leg pain, No foot pain Skin: No Rash, No Lesions, No Jaundice, No Bruising; Other (Lower extremity skin redness) Objective Vitals Vital Signs Date Time Temp Pulse Resp B/P (MAP) Pulse Ox O2 Delivery O2 Flow Rate FiO2 11/05/24 05:00 97.5 58 18 126/66 (86) 98 97.5 11/04/24 20:00 Room Air* 0 21 Intake/Output Intake and Output 11/05/24 07:00 Intake Total 1060 ml Output Total 1415 ml Balance -355 ml Intake Oral 960 ml IV Total 100 ml Output Urine Total 1415 ml Medications Current Medications Medications Dose Ordered Sig/Margo Route Start Time Stop Time Status Last Admin Dose Admin Vancomycin HCl 0 ml @ 0 mls/hr UD IV 11/04/24 05:45 Furosemide 40 mg DAILY IV 11/04/24 10:00 11/04/24 10:46 40 MG Atorvastatin Calcium 20 mg HS PO 11/04/24 22:00 11/04/24 22:19 20 MG Carvedilol 6.25 mg Q12HR PO 11/04/24 10:00 11/04/24 22:19 6.25 MG Hydralazine HCl 10 mg Q6HP PRN IV 11/04/24 05:45 Amlodipine Besylate 5 mg DAILY PO 11/04/24 10:00 11/04/24 10:47 5 MG Aspirin 81 mg DAILY PO 11/04/24 10:00 11/04/24 10:47 81 MG Tamsulosin HCl 0.4 mg QPM PO 11/04/24 18:00 11/04/24 17:56 0.4 MG Diagnostic Test (Pha) 1 strip ACHS 11/04/24 07:00 11/05/24 06:49 1 STRIP Insulin Human Regular ACHS SC 11/04/24 07:00 Dextrose 50 ml UD PRN IV 11/04/24 05:45 Sodium Chloride 10 ml Q8HR IV 11/04/24 06:00 11/05/24 06:48 10 ML Acetaminophen/ Hydrocodone Bitart 1 tab Q4HP PRN PO 11/04/24 05:45 Ondansetron HCl 4 mg Q4HP PRN IV 11/04/24 05:45 Docusate Sodium 100 mg BIDPRN PRN PO 11/04/24 05:45 Acetaminophen 650 mg Q6HP PRN PO 11/04/24 05:45 Nitroglycerin 0.4 mg Q5MINP PRN SL 11/04/24 05:45 Morphine Sulfate 2 mg Q30M PRN IV 11/04/24 05:45 Cefazolin Sodium 50 ml @ 100 mls/hr Q8HR IV 11/04/24 06:00 11/05/24 06:48 100 MLS/HR Vancomycin HCl 150 ml @ 150 mls/hr Q18H IV 11/04/24 22:00 11/04/24 22:17 150 MLS/HR Laboratory Results Laboratory Tests 11/05/24 04:42 11/05/24 06:22 Chemistry Test 11/05/24 06:22 Albumin 3.1 g/dL (3.2-4.8) L Calcium Level 8.3 mg/dL (8.7-10.4) L Total Protein 6.4 g/dL (5.7-8.2) LFT Test 11/05/24 06:22 Alanine Aminotransferase (ALT) < 9 U/L (7-40) Alkaline Phosphatase 274 U/L (46-116) H Aspartate Amino Transferase (AST) 16 U/L (13-40) Total Bilirubin 0.6 mg/dL (0.2-1.0) Urinalysis Test 11/04/24 05:16 Urine Color Light-yellow (Yellow) Urine Clarity Clear (Clear) Urine pH 5.0 (5.0-9.0) Urine Specific [place] 1.013 (1.001-1.035) Urine Protein 1+ (Negative) H Urine Ketones Negative (Negative) Urine Blood 1+ /uL (Negative) H Urine Nitrite Negative (Negative) Urine Bilirubin Negative (Negative) Urine Urobilinogen Normal mg/dL (Negative) Urine Leukocyte Esterase Negative /uL (Negative) Urine RBC 2 /hpf (0 - 3) Urine Microscopic WBC < 1 /HPF (0-3) Urine Squamous Epithelial Cells Few /hpf (<5) Urine Bacteria None seen /hpf (None Seen) Urine Glucose Normal mg/dL (Normal) Microbiology Microbiology Date/Time Source Procedure Growth Status 11/04/24 02:30 Blood Blood Culture - Preliminary NO GROWTH AFTER 24 HOURS OF INCUBATION. Resulted Labs and/or images reviewed: Labs reviewed by me, Image(s) reviewed by me Assessment/Plan Assessment/Plan Sepsis secondary to bilateral lower extremity cellulitis, blood cultures neg Acute exacerbation of severe systolic congestive heart failure with BNP 1.9 K , echo 15% ejection fraction Lasix Coreg cardiology consult for Dr. Garcia Generalized weakness Coronary Artery disease status post CABG Acute kidney injury Unontrolled diabetes: Insulin sliding scale Sepsis, unspecified organism Cellulitis of bilateral thighs: Zosyn vancomycin Hypertension: Amlodipine Hypercholesterolemia: Lipitor History of right AKA History of left BKA Patient is wheelchair-bound Time Spent 50 minutes Patient is full code Patient's son takes care of him at home Plan discussed with: Patient My Orders Orders - GERARDO DOUGLAS MD Procedure Category Date Status Time * Cardiology Consult CONS 11/04/24 Transmitted 12:13 * Wound Consult CONS 11/04/24 Transmitted Date of Service: November 05, 2024 Billing Provider: GERARDO DOUGLAS MD Common Visit Codes: [id number] INP/OBS CARE(HIGH) GERARDO DOUGLAS MD November 05, 2024 08:01
--- NOTE | 2024-11-05 22:41 | DVHPN2 ---
Progress Note - Dictate Date Seen: November 05, 2024 Medical Necessity Reason Pt with a Central, PICC or Fol: No Subjective Patient was seen and evaluated in follow up. Patient is complaining of testicular pain. Patient's HR is fluctuating between the 50's and 60's. BUN 36, [employer] 1.48, [place] 8.3. Telemetry reviewed. vital signs Vital Sign Date Time Temp Pulse Resp B/P (MAP) Pulse Ox O2 Delivery O2 Flow Rate FiO2 11/05/24 10:37 129/71 11/05/24 10:00 60 11/05/24 09:00 97.6 14 97 97.6 11/05/24 08:00 Room Air* 0 21 Total Intake and Output 11/04/24 11/04/24 11/05/24 15:00 23:00 07:00 Intake Total 50 ml 290 ml 720 ml Output Total 515 ml 900 ml Balance 50 ml -225 ml -180 ml medications Current Medications Medications Dose Ordered Sig/Margo Route Start Time Stop Time Status Last Admin Dose Admin Vancomycin HCl 0 ml @ 0 mls/hr UD IV 11/04/24 05:45 Furosemide 40 mg DAILY IV 11/04/24 10:00 11/05/24 10:37 40 MG Atorvastatin Calcium 20 mg HS PO 11/04/24 22:00 11/04/24 22:19 20 MG Carvedilol 6.25 mg Q12HR PO 11/04/24 10:00 11/04/24 22:19 6.25 MG Hydralazine HCl 10 mg Q6HP PRN IV 11/04/24 05:45 Amlodipine Besylate 5 mg DAILY PO 11/04/24 10:00 11/05/24 10:37 5 MG Aspirin 81 mg DAILY PO 11/04/24 10:00 11/05/24 10:37 81 MG Tamsulosin HCl 0.4 mg QPM PO 11/04/24 18:00 11/04/24 17:56 0.4 MG Diagnostic Test (Pha) 1 strip ACHS 11/04/24 07:00 11/05/24 11:38 1 STRIP Insulin Human Regular ACHS SC 11/04/24 07:00 Dextrose 50 ml UD PRN IV 11/04/24 05:45 Sodium Chloride 10 ml Q8HR IV 11/04/24 06:00 11/05/24 06:48 10 ML Acetaminophen/ Hydrocodone Bitart 1 tab Q4HP PRN PO 11/04/24 05:45 Ondansetron HCl 4 mg Q4HP PRN IV 11/04/24 05:45 Docusate Sodium 100 mg BIDPRN PRN PO 11/04/24 05:45 Acetaminophen 650 mg Q6HP PRN PO 11/04/24 05:45 Nitroglycerin 0.4 mg Q5MINP PRN SL 11/04/24 05:45 Morphine Sulfate 2 mg Q30M PRN IV 11/04/24 05:45 Cefazolin Sodium 50 ml @ 100 mls/hr Q8HR IV 11/04/24 06:00 11/05/24 06:48 100 MLS/HR Vancomycin HCl 150 ml @ 150 mls/hr Q18H IV 11/04/24 22:00 11/04/24 22:17 150 MLS/HR objective GENERAL: Alert and oriented x 3. No acute distress. EYES: PERRL, EOMI. Anicteric. HENT: Moist mucous membranes. LUNGS: Clear to auscultation bilaterally. CARDIOVASCULAR: Regular rate and rhythm. ABDOMEN: Soft, nontender and nondistended. EXTREMITIES: BLE edema. NEUROLOGIC: No focal neurological deficits. SKIN: Warm, dry. laboratory and microbiology Laboratory Tests 11/05/24 06:22 11/05/24 04:42 Test 11/05/24 06:22 Range/Units Serum Glucose 96 74-106 mg/dL Problem List Sepsis secondary to bilateral lower extremity cellulitis. Acute exacerbation of congestive heart failure. Generalized weakness. CAD status post CABG. Acute kidney injury. Controlled diabetes. Cellulitis of bilateral thighs. Hypertension. Hypercholesterolemia. History of right AKA. History of left BKA. Patient is wheelchair-bound. Assessment/Plan Continued all current supportive medical care. Echocardiogram. Morphine and [place] for pain management. Amlodipine, Coreg. Aspirin, Lipitor. IV antibiotics as ordered. Diuretics with Lasix. IV Hydralazine for SBP >150. Additional plan as per the hospital course. Plan discussed with: Patient RAPHAEL CHEN MD November 05, 2024 13:01
[2024-11-06] VITALS (8 sets, daily range): BP systolic 103–124; BP diastolic 57–79; PULSE 63–71; RESP 12–18; TEMP 97.3–97.7; O2SAT 94–99
[2024-11-06 06:58] LABS: Basophils # (auto) 0.1 10 ^3/uL (0-0.2); Basophils % (auto) 1.1 % (0.0-2.0); Eosinophils # (auto) 0.1 10 ^3/uL (0-0.8); Eosinophils % (auto) 0.9 % (0.0-7.0); Hematocrit 37.3 % (41.0-53.0); Hemoglobin 12.6 g/dL (13.5-17.5); Lymphocytes # (auto) 0.9 10 ^3/uL (0.4-5.4); Lymphocytes % (auto) 14.2 % (10.0-50.0); Mean Corpuscular Hemoglobin 31.4 pg (28.0-32.0); Mean Corpuscular Hgb Conc. 33.8 g/dL (32.0-36.0); Mean Corpuscular Volume 92.9 fL (80.0-100.0); Monocytes # (auto) 0.5 10 ^3/uL (0-1.3); Monocytes % (auto) 7.6 % (0.0-12.0); Neutrophils % (auto) 76.2 % (37.0-80.0); Nucleated Red Blood Cells % 0.1 %; Platelet Count (auto) 228 10^3/uL (140-450); Red Blood Cells 4.01 10^6/uL (4.5-5.90); Red Cell Distribution Width 16.8 % (11.8-14.3); White Blood Cell 6.6 10^3/uL (4.4-10.8)
--- NOTE | 2024-11-06 09:44 | DVHPN2 ---
Reviewed: Care Plan, H&P, Labs, Medications, Previous Orders, Radiology Changes from previous H/P or p: No Changes Eyes: No Pain, No Vision change, No Conjunctivae inflammation, No Eyelid inflammation, No Other, No Redness ENT: No Ear pain, No Ear discharge, No Nose pain, No Nose discharge, No Nose congestion, No Mouth pain, No Mouth swelling, No Throat pain, No Throat swelling, No Other Cardiovascular: No Chest Pain, No Palpitations, No Orthopnea, No Paroxysmal Noc. Dyspnea; Edema; No Lt Headedness, No Other Respiratory: No Cough, No Dry, No Shortness of breath, No SOB with excertion, No Wheezing, No Hemoptysis, No Pleuritic Pain, No Sputum, No Other Gastrointestinal: No Nausea, No Vomiting, No Abdominal Pain, No Diarrhea, No Constipation, No Melena, No Hematochezia, No Other Genitourinary: No Dysuria, No Frequency, No Incontinence, No Hematuria, No Retention; Other (Testicular swelling) Musculoskeletal: other (Right AKA, left BKA.); No neck pain, No shoulder pain, No arm pain, No back pain, No hand pain, No leg pain, No foot pain Skin: No Rash, No Lesions, No Jaundice, No Bruising; Other (Lower extremity skin redness) Objective Vitals Vital Signs Date Time Temp Pulse Resp B/P (MAP) Pulse Ox O2 Delivery O2 Flow Rate FiO2 11/06/24 09:29 115/70 11/06/24 08:34 97.6 64 18 94 97.6 11/05/24 20:00 Room Air* 0 21 Intake/Output Intake and Output 11/06/24 07:00 Intake Total 2560 ml Output Total 750 ml Balance 1810 ml Intake Oral 1960 ml IV Total 600 ml Output Urine Total 750 ml Medications Current Medications Medications Dose Ordered Sig/Margo Route Start Time Stop Time Status Last Admin Dose Admin Vancomycin HCl 0 ml @ 0 mls/hr UD IV 11/04/24 05:45 Furosemide 40 mg DAILY IV 11/04/24 10:00 11/06/24 09:29 40 MG Atorvastatin Calcium 20 mg HS PO 11/04/24 22:00 11/05/24 21:36 20 MG Carvedilol 6.25 mg Q12HR PO 11/04/24 10:00 11/05/24 21:36 6.25 MG Hydralazine HCl 10 mg Q6HP PRN IV 11/04/24 05:45 Amlodipine Besylate 5 mg DAILY PO 11/04/24 10:00 11/05/24 10:37 5 MG Aspirin 81 mg DAILY PO 11/04/24 10:00 11/06/24 09:29 81 MG Tamsulosin HCl 0.4 mg QPM PO 11/04/24 18:00 11/05/24 17:38 0.4 MG Diagnostic Test (Pha) 1 strip ACHS 11/04/24 07:00 11/06/24 06:06 1 STRIP Insulin Human Regular ACHS SC 11/04/24 07:00 11/05/24 16:46 3 UNITS Dextrose 50 ml UD PRN IV 11/04/24 05:45 Sodium Chloride 10 ml Q8HR IV 11/04/24 06:00 11/06/24 05:59 10 ML Acetaminophen/ Hydrocodone Bitart 1 tab Q4HP PRN PO 11/04/24 05:45 Ondansetron HCl 4 mg Q4HP PRN IV 11/04/24 05:45 Docusate Sodium 100 mg BIDPRN PRN PO 11/04/24 05:45 Acetaminophen 650 mg Q6HP PRN PO 11/04/24 05:45 Nitroglycerin 0.4 mg Q5MINP PRN SL 11/04/24 05:45 Morphine Sulfate 2 mg Q30M PRN IV 11/04/24 05:45 Cefazolin Sodium 50 ml @ 100 mls/hr Q8HR IV 11/04/24 06:00 11/06/24 05:59 100 MLS/HR Vancomycin HCl 150 ml @ 150 mls/hr Q18H IV 11/04/24 22:00 11/06/24 09:26 150 MLS/HR Laboratory Results Laboratory Tests 11/05/24 06:22 11/06/24 05:58 Urinalysis Test 11/04/24 05:16 Urine Color Light-yellow (Yellow) Urine Clarity Clear (Clear) Urine pH 5.0 (5.0-9.0) Urine Specific [place] 1.013 (1.001-1.035) Urine Protein 1+ (Negative) H Urine Ketones Negative (Negative) Urine Blood 1+ /uL (Negative) H Urine Nitrite Negative (Negative) Urine Bilirubin Negative (Negative) Urine Urobilinogen Normal mg/dL (Negative) Urine Leukocyte Esterase Negative /uL (Negative) Urine RBC 2 /hpf (0 - 3) Urine Microscopic WBC < 1 /HPF (0-3) Urine Squamous Epithelial Cells Few /hpf (<5) Urine Bacteria None seen /hpf (None Seen) Urine Glucose Normal mg/dL (Normal) Microbiology Microbiology Date/Time Source Procedure Growth Status 11/04/24 02:30 Blood Blood Culture - Preliminary NO GROWTH AFTER 48 HOURS OF INCUBATION. Resulted Labs and/or images reviewed: Labs reviewed by me, Image(s) reviewed by me Assessment/Plan Assessment/Plan Sepsis secondary to bilateral lower extremity cellulitis, blood cultures neg Cellulitis bilateral thighs: Zosyn vancomycin Acute exacerbation of severe systolic congestive heart failure with BNP 1.9 K , echo 15% ejection fraction Lasix Coreg cardiology consult for Dr. Garcia appreciated Generalized weakness Coronary Artery disease status post CABG Acute kidney injury Unontrolled diabetes: Insulin sliding scale Hypertension: Amlodipine Hypercholesterolemia: Lipitor History of right AKA History of left BKA Patient is wheelchair-bound Time Spent 50 minutes Venous ultrasound rule out DVT ordered Patient is full code Patient's son takes care of him at home Plan discussed with: Patient Date of Service: November 06, 2024 Billing Provider: GERARDO DOUGLAS MD Common Visit Codes: [id number] INP/OBS CARE(HIGH) GERARDO DOUGLAS MD November 06, 2024 09:44
--- NOTE | 2024-11-06 12:46 | DVH ---
EXAM: US BILAT LOWER DVT Clinical History: Rule out DVT Comparison: None Technique: Duplex Doppler evaluation of the deep venous systems of both lower extremities from the co mmon femoral veins to the popliteal veins including color Doppler and spectral/pulsed waveform analys is was performed. Findings: RIGHT SIDE: The common femoral vein demonstrates appropriate compressibility and waveform variability. There is compressibility/patency of the great saphenous vein at the proximal thigh. The femoral vein demonstrates appropriate compressibility and waveform variability. The deep femoral vein demonstrates appropriate compressibility and waveform variability. Above knee amputation. Moderate subcutaneous edema in the thigh. LEFT SIDE: The common femoral vein demonstrates appropriate compressibility and waveform variability. There is compressibility/patency of the great saphenous vein at the proximal thigh. The femoral vein demonstrates appropriate compressibility and waveform variability. The deep femoral vein demonstrates appropriate compressibility and waveform variability. The popliteal vein demonstrates appropriate compressibility and waveform variability. There is color flow at the tibioperoneal trunk . Severe subcutaneous edema in the popliteal fossa mild subcutaneous edema in the thigh. Impression: 1. No right or left femoropopliteal venous thrombosis. 2. Bilateral lower extremity subcutaneous edema noted.
--- NOTE | 2024-11-06 21:40 | DVHPN2 ---
Progress Note - Dictate Date Seen: November 06, 2024 Medical Necessity Reason Pt with a Central, PICC or Fol: No Subjective Patient was seen and evaluated in follow up. Patient is complaining of testicular swelling and pain. Echocardiogram shows an EF of only 15%. D-dimer 2.36, [place]um [place] 1.74. Telemetry reviewed. vital signs Vital Sign Date Time Temp Pulse Resp B/P (MAP) Pulse Ox O2 Delivery O2 Flow Rate FiO2 11/06/24 20:46 97.3 67 12 124/79 (94) 98 97.3 11/06/24 08:00 Room Air* 0 21 Total Intake and Output 11/05/24 11/05/24 11/06/24 15:00 23:00 07:00 Intake Total 350 ml 1800 ml 410 ml Output Total 250 ml 500 ml Balance 350 ml 1550 ml -90 ml medications Current Medications Medications Dose Ordered Sig/Margo Route Start Time Stop Time Status Last Admin Dose Admin Vancomycin HCl 0 ml @ 0 mls/hr UD IV 11/04/24 05:45 Furosemide 40 mg DAILY IV 11/04/24 10:00 11/06/24 09:29 40 MG Atorvastatin Calcium 20 mg HS PO 11/04/24 22:00 11/05/24 21:36 20 MG Carvedilol 6.25 mg Q12HR PO 11/04/24 10:00 11/05/24 21:36 6.25 MG Hydralazine HCl 10 mg Q6HP PRN IV 11/04/24 05:45 Amlodipine Besylate 5 mg DAILY PO 11/04/24 10:00 11/05/24 10:37 5 MG Aspirin 81 mg DAILY PO 11/04/24 10:00 11/06/24 09:29 81 MG Tamsulosin HCl 0.4 mg QPM PO 11/04/24 18:00 11/06/24 18:08 0.4 MG Diagnostic Test (Pha) 1 strip ACHS 11/04/24 07:00 11/06/24 17:04 1 STRIP Insulin Human Regular ACHS SC 11/04/24 07:00 11/06/24 12:08 2 UNITS Dextrose 50 ml UD PRN IV 11/04/24 05:45 Sodium Chloride 10 ml Q8HR IV 11/04/24 06:00 11/06/24 15:06 10 ML Acetaminophen/ Hydrocodone Bitart 1 tab Q4HP PRN PO 11/04/24 05:45 Ondansetron HCl 4 mg Q4HP PRN IV 11/04/24 05:45 Docusate Sodium 100 mg BIDPRN PRN PO 11/04/24 05:45 Acetaminophen 650 mg Q6HP PRN PO 11/04/24 05:45 Nitroglycerin 0.4 mg Q5MINP PRN SL 11/04/24 05:45 Morphine Sulfate 2 mg Q30M PRN IV 11/04/24 05:45 Cefazolin Sodium 50 ml @ 100 mls/hr Q8HR IV 11/04/24 06:00 11/06/24 14:55 100 MLS/HR objective GENERAL: Alert and oriented x 3. No acute distress. EYES: PERRL, EOMI. Anicteric. HENT: Moist mucous membranes. LUNGS: Clear to auscultation bilaterally. CARDIOVASCULAR: Regular rate and rhythm. ABDOMEN: Soft, nontender and nondistended. EXTREMITIES: BLE edema. NEUROLOGIC: No focal neurological deficits. SKIN: Warm, dry. laboratory and microbiology Laboratory Tests 11/06/24 05:58 11/05/24 06:22 Test 11/05/24 06:22 Range/Units Serum Glucose 96 74-106 mg/dL Problem List Sepsis secondary to bilateral lower extremity cellulitis. Acute exacerbation of congestive heart failure. Generalized weakness. CAD status post CABG. Acute kidney injury. Controlled diabetes. Cellulitis of bilateral thighs. Hypertension. Hypercholesterolemia. History of right AKA. History of left BKA. Patient is wheelchair-bound. Assessment/Plan Continued all current supportive medical care. Morphine and [place] for pain management. Amlodipine, Coreg. Aspirin, Lipitor. IV antibiotics as ordered. Diuretics with Lasix. IV Hydralazine for SBP >150. Additional plan as per the hospital course. Plan discussed with: Patient RAPHAEL CHEN MD November 06, 2024 21:40
[2024-11-07] VITALS (9 sets, daily range): BP systolic 101–132; BP diastolic 59–82; PULSE 62–66; RESP 12–20; TEMP 97.5–98.1; O2SAT 96–99
--- NOTE | 2024-11-07 09:09 | DVHPN2 ---
Reviewed: Care Plan, H&P, Labs, Medications, Previous Orders, Radiology Changes from previous H/P or p: No Changes Eyes: No Pain, No Vision change, No Conjunctivae inflammation, No Eyelid inflammation, No Other, No Redness ENT: No Ear pain, No Ear discharge, No Nose pain, No Nose discharge, No Nose congestion, No Mouth pain, No Mouth swelling, No Throat pain, No Throat swelling, No Other Cardiovascular: No Chest Pain, No Palpitations, No Orthopnea, No Paroxysmal Noc. Dyspnea; Edema; No Lt Headedness, No Other Respiratory: No Cough, No Dry, No Shortness of breath, No SOB with excertion, No Wheezing, No Hemoptysis, No Pleuritic Pain, No Sputum, No Other Gastrointestinal: No Nausea, No Vomiting, No Abdominal Pain, No Diarrhea, No Constipation, No Melena, No Hematochezia, No Other Genitourinary: No Dysuria, No Frequency, No Incontinence, No Hematuria, No Retention; Other (Testicular swelling) Musculoskeletal: other (Right AKA, left BKA.); No neck pain, No shoulder pain, No arm pain, No back pain, No hand pain, No leg pain, No foot pain Skin: No Rash, No Lesions, No Jaundice, No Bruising; Other (Lower extremity skin redness) Objective Vitals Vital Signs Date Time Temp Pulse Resp B/P (MAP) Pulse Ox O2 Delivery O2 Flow Rate FiO2 11/07/24 04:57 97.7 64 12 116/82 (93) 97 97.7 11/06/24 20:00 Room Air* 0 21 Intake/Output Intake and Output 11/07/24 07:00 Intake Total 1770 ml Output Total 200 ml Balance 1570 ml Intake Oral 1420 ml IV Total 350 ml Output Urine Total 200 ml # Voids 1 Medications Current Medications Medications Dose Ordered Sig/Margo Route Start Time Stop Time Status Last Admin Dose Admin Vancomycin HCl 0 ml @ 0 mls/hr UD IV 11/04/24 05:45 Furosemide 40 mg DAILY IV 11/04/24 10:00 11/06/24 09:29 40 MG Atorvastatin Calcium 20 mg HS PO 11/04/24 22:00 11/06/24 21:47 20 MG Carvedilol 6.25 mg Q12HR PO 11/04/24 10:00 11/06/24 21:47 6.25 MG Hydralazine HCl 10 mg Q6HP PRN IV 11/04/24 05:45 Amlodipine Besylate 5 mg DAILY PO 11/04/24 10:00 11/05/24 10:37 5 MG Aspirin 81 mg DAILY PO 11/04/24 10:00 11/06/24 09:29 81 MG Tamsulosin HCl 0.4 mg QPM PO 11/04/24 18:00 11/06/24 18:08 0.4 MG Diagnostic Test (Pha) 1 strip ACHS 11/04/24 07:00 11/07/24 05:58 1 STRIP Insulin Human Regular ACHS SC 11/04/24 07:00 11/06/24 12:08 2 UNITS Dextrose 50 ml UD PRN IV 11/04/24 05:45 Sodium Chloride 10 ml Q8HR IV 11/04/24 06:00 11/07/24 05:39 10 ML Acetaminophen/ Hydrocodone Bitart 1 tab Q4HP PRN PO 11/04/24 05:45 Ondansetron HCl 4 mg Q4HP PRN IV 11/04/24 05:45 Docusate Sodium 100 mg BIDPRN PRN PO 11/04/24 05:45 Acetaminophen 650 mg Q6HP PRN PO 11/04/24 05:45 Nitroglycerin 0.4 mg Q5MINP PRN SL 11/04/24 05:45 Morphine Sulfate 2 mg Q30M PRN IV 11/04/24 05:45 Cefazolin Sodium 50 ml @ 100 mls/hr Q8HR IV 11/04/24 06:00 11/07/24 05:38 100 MLS/HR Laboratory Results Laboratory Tests 11/05/24 06:22 11/06/24 05:58 11/07/24 05:12 Urinalysis Test 11/04/24 05:16 Urine Color Light-yellow (Yellow) Urine Clarity Clear (Clear) Urine pH 5.0 (5.0-9.0) Urine Specific [place] 1.013 (1.001-1.035) Urine Protein 1+ (Negative) H Urine Ketones Negative (Negative) Urine Blood 1+ /uL (Negative) H Urine Nitrite Negative (Negative) Urine Bilirubin Negative (Negative) Urine Urobilinogen Normal mg/dL (Negative) Urine Leukocyte Esterase Negative /uL (Negative) Urine RBC 2 /hpf (0 - 3) Urine Microscopic WBC < 1 /HPF (0-3) Urine Squamous Epithelial Cells Few /hpf (<5) Urine Bacteria None seen /hpf (None Seen) Urine Glucose Normal mg/dL (Normal) Microbiology Microbiology Date/Time Source Procedure Growth Status 11/04/24 02:30 Blood Blood Culture - Preliminary NO GROWTH AFTER 72 HOURS OF INCUBATION. Resulted Labs and/or images reviewed: Labs reviewed by me, Image(s) reviewed by me Assessment/Plan Assessment/Plan Sepsis secondary to bilateral lower extremity cellulitis, blood cultures neg Cellulitis bilateral thighs: Zosyn vancomycin Acute exacerbation of severe systolic congestive heart failure with BNP 1.9 K , echo 15% ejection fraction Lasix Coreg cardiology consult for Dr. Garcia appreciated Generalized weakness Coronary Artery disease status post CABG Acute kidney injury Unontrolled diabetes: Insulin sliding scale Hypertension: Amlodipine Hypercholesterolemia: Lipitor History of right AKA History of left BKA Patient is wheelchair-bound DVT ruled out Patient to be discharged to senior living facility for two weeks of IV antibiotics for cellulitis. Plan is acceptable to the patient Plan discussed with: Patient My Orders Orders - GERARDO DOUGLAS MD Procedure Category Date Status Time Bilat Lower Dvt US 11/06/24 Resulted 09:41 Insert Midline ORDERS 11/06/24 Transmitted 15:06 * Picc Line Consult CONS 11/07/24 Transmitted 08:41 PTPTT LAB 11/07/24 Transmitted 08:50 Date of Service: November 07, 2024 Billing Provider: GERARDO DOUGLAS MD Common Visit Codes: [id number] INP/OBS CARE(HIGH) GERARDO DOUGLAS MD November 07, 2024 09:09
--- NOTE | 2024-11-07 09:17 | DVHDS2 ---
Discharge Summary Date of Admission November 04, 2024 at 05:34 Date of Discharge: November 07, 2024 Admitting Diagnosis Redness swelling tenderness bilateral thighs Wounds: Cellulitis bilateral thighs Labs/Diagnostic Data: Laboratory Results Test 11/07/24 05:45 11/07/24 05:12 11/06/24 09:09 11/06/24 05:58 POC Glucose 105 mg/dl (70-106) Creatinine 1.69 mg/dL (0.700-1.30) Glomerular Filtration Rate Calc 46 mL/min (>90) Random Vancomycin Level 24.4 ug/mL (5-10) Vancomycin Level Trough 20.8 ug/mL (5-10) White Blood Count 6.6 10^3/uL (4.4-10.8) Red Blood Count 4.01 10^6/uL (4.5-5.90) Hemoglobin 12.6 g/dL (13.5-17.5) Hematocrit 37.3 % (41.0-53.0) Mean Corpuscular Volume 92.9 fL (80.0-100.0) Mean Corpuscular Hemoglobin 31.4 pg (28.0-32.0) Mean Corpuscular Hemoglobin Concent 33.8 g/dL (32.0-36.0) Red Cell Distribution Width 16.8 % (11.8-14.3) Platelet Count 228 10^3/uL (140-450) Mean Platelet Volume 9.2 fL (6.9-10.8) Neutrophils (%) (Auto) 76.2 % (37.0-80.0) Lymphocytes (%) (Auto) 14.2 % (10.0-50.0) Monocytes (%) (Auto) 7.6 % (0.0-12.0) Eosinophils (%) (Auto) 0.9 % (0.0-7.0) Basophils (%) (Auto) 1.1 % (0.0-2.0) Neutrophils # (Auto) 5.0 10 ^3/uL (1.6-8.6) Lymphocytes # (Auto) 0.9 10 ^3/uL (0.4-5.4) Monocytes # (Auto) 0.5 10 ^3/uL (0-1.3) Eosinophils # (Auto) 0.1 10 ^3/uL (0-0.8) Basophils # (Auto) 0.1 10 ^3/uL (0-0.2) Nucleated Red Blood Cells 0.1 % D-Dimer, Quantitative 2.36 mg/L FEU (0.0-0.49) Test 11/05/24 06:22 11/04/24 05:16 11/04/24 04:46 11/04/24 02:30 Sodium Level 137 mmol/L (136-145) Potassium Level 4.5 mmol/L (3.5-5.1) Chloride Level 105 mmol/L (98-107) Carbon Dioxide Level 22 mmol/L (20-31) Anion Gap 10 (5-15) Blood Urea Nitrogen 36 mg/dL (9-23) BUN/Creatinine Ratio 24.3 (10.0-20.0) Serum Glucose 96 mg/dL (74-106) Calcium Level 8.3 mg/dL (8.7-10.4) Total Bilirubin 0.6 mg/dL (0.2-1.0) Aspartate Amino Transferase (AST) 16 U/L (13-40) Alanine Aminotransferase (ALT) < 9 U/L (7-40) Alkaline Phosphatase 274 U/L (46-116) Total Protein 6.4 g/dL (5.7-8.2) Albumin 3.1 g/dL (3.2-4.8) Urine Color Light-yellow (Yellow) Urine Clarity Clear (Clear) Urine pH 5.0 (5.0-9.0) Urine Specific [place] 1.013 (1.001-1.035) Urine Protein 1+ (Negative) Urine Ketones Negative (Negative) Urine Blood 1+ /uL (Negative) Urine Nitrite Negative (Negative) Urine Bilirubin Negative (Negative) Urine Urobilinogen Normal mg/dL (Negative) Urine Leukocyte Esterase Negative /uL (Negative) Urine RBC 2 /hpf (0 - 3) Urine Microscopic WBC < 1 /HPF (0-3) Urine Squamous Epithelial Cells Few /hpf (<5) Urine Bacteria None seen /hpf (None Seen) Urine Glucose Normal mg/dL (Normal) Lactic Acid Level 2.5 mmol/L (0.4-2.0) Troponin I High Sensitivity 12 ng/L (</=54) B-Type Natriuretic Peptide 1987.60 pg/mL (0-100) Other Laboratory Tests 11/07/24 05:12 11/06/24 05:58 11/05/24 06:22 Brief Hx & Hospital Course: 58-year-old male with history of right AKA left BKA chronic systolic congestive heart failure coronary artery disease status post CABG uncontrolled diabetes hypertension hypercholesterolemia came in complaining of pain and swelling of the bilateral upper thighs found to have cellulitis started on Zosyn and vancomycin blood cultures negative DVT ruled out echo 15 percent ejection fraction BNP 1.9 K treated with Lasix and Coreg cardiology consult by Dr. Garcia. Patient is being [facility] to [facility] facility for two weeks of IV antibiotics and physical therapy. Consults/Reason for consult Cardiology Dr. Garcia Operations or Procedures Venous ultrasound Echocardiogram Condition at Discharge: Fair Final Diagnosis/Problems List Sepsis secondary to bilateral lower extremity cellulitis, blood cultures neg Cellulitis bilateral thighs: Zosyn vancomycin Acute exacerbation of severe systolic congestive heart failure with BNP 1.9 K , echo 15% ejection fraction Lasix Coreg cardiology consult for Dr. Garcia appreciated Generalized weakness Coronary Artery disease status post CABG Acute kidney injury Unontrolled diabetes: Insulin sliding scale Hypertension: Amlodipine Hypercholesterolemia: Lipitor History of right AKA History of left BKA Patient is wheelchair-bound DVT ruled out Discharge Disposition: Long-Term Facility Discharge Instruct/Medications Diet: Cardiac 2g Na,low cholest Activity: Light activity Follow Up/Referral: Follow up with the long term Medications: Ancef 1 g IV daily for two weeks Vancomycin 1 g IV daily for two weeks Both for cellulitis bilateral thighs 39 (Time taken for discharge summary 39 minutes) Discharge Statement: "Patient was advised to return to the ER or call 911 if any headaches, dizziness, shortness of breath, chest pain, abdominal pain, bleeding, fevers, or worsening of medical condition. Patient was counseled about treatment plan, medications, possible side effects, patientverbalized understanding. All questions were answered to the best of my ability. This discharge took greater then 30 minutes in planning, reviewing documentation, counseling the patient, and discussing with other team members." ASSESSMENT ASSESSMENT Hospital Course Improved marginally Assessment Sepsis secondary to bilateral lower extremity cellulitis, blood cultures neg Cellulitis bilateral thighs: Zosyn vancomycin Acute exacerbation of severe systolic congestive heart failure with BNP 1.9 K , echo 15% ejection fraction Lasix Coreg cardiology consult for Dr. Garcia appreciated Generalized weakness Coronary Artery disease status post CABG Acute kidney injury Unontrolled diabetes: Insulin sliding scale Hypertension: Amlodipine Hypercholesterolemia: Lipitor History of right AKA History of left BKA Patient is wheelchair-bound DVT ruled out Date of Service: November 07, 2024 Billing Provider: GERARDO DOUGLAS MD Common Visit Codes: [id number] DISCH DAY >30min GERARDO DOUGLAS MD November 07, 2024 09:17
[2024-11-07 10:37] LABS: INR 1.09 (0.9-1.15); Partial Thromboplastin Time 31.4 SEC (24.5-34.5); Prothrombin Time 11.5 sec (9.3-11.8)
[2024-11-07] MEDS: LIDOCAINE 1% (LOCAL ANESTH.) PF 5ml SDV ID ONE (15:20)
--- NOTE | 2024-11-07 19:53 | DVHPN2 ---
Progress Note - Dictate Date Seen: November 07, 2024 Medical Necessity Reason Pt with a Central, PICC or Fol: No Subjective Patient was seen and evaluated in follow up. No overnight events. Patient is complaining of testicular swelling and pain and BLE discomfort due to cellulitis. Patient pending discharge to half-way facility for two weeks of IV antibiotics for cellulitis. Telemetry reviewed. vital signs Vital Sign Date Time Temp Pulse Resp B/P (MAP) Pulse Ox O2 Delivery O2 Flow Rate FiO2 11/07/24 16:44 98.0 63 20 113/70 (84) 97 98.0 11/07/24 08:00 Room Air* 0 21 Total Intake and Output 11/06/24 11/06/24 11/07/24 15:00 23:00 07:00 Intake Total 150 ml 1350 ml 270 ml Output Total 200 ml Balance 150 ml 1150 ml 270 ml medications Current Medications Medications Dose Ordered Sig/Margo Route Start Time Stop Time Status Last Admin Dose Admin Vancomycin HCl 0 ml @ 0 mls/hr UD IV 11/04/24 05:45 Furosemide 40 mg DAILY IV 11/04/24 10:00 11/07/24 09:57 40 MG Atorvastatin Calcium 20 mg HS PO 11/04/24 22:00 11/06/24 21:47 20 MG Carvedilol 6.25 mg Q12HR PO 11/04/24 10:00 11/07/24 09:57 6.25 MG Hydralazine HCl 10 mg Q6HP PRN IV 11/04/24 05:45 Amlodipine Besylate 5 mg DAILY PO 11/04/24 10:00 11/07/24 09:58 5 MG Aspirin 81 mg DAILY PO 11/04/24 10:00 11/07/24 09:58 81 MG Tamsulosin HCl 0.4 mg QPM PO 11/04/24 18:00 11/07/24 17:33 0.4 MG Diagnostic Test (Pha) 1 strip ACHS 11/04/24 07:00 11/07/24 17:33 1 STRIP Insulin Human Regular ACHS SC 11/04/24 07:00 11/07/24 17:34 2 UNITS Dextrose 50 ml UD PRN IV 11/04/24 05:45 Sodium Chloride 10 ml Q8HR IV 11/04/24 06:00 11/07/24 14:09 10 ML Acetaminophen/ Hydrocodone Bitart 1 tab Q4HP PRN PO 11/04/24 05:45 Ondansetron HCl 4 mg Q4HP PRN IV 11/04/24 05:45 Docusate Sodium 100 mg BIDPRN PRN PO 11/04/24 05:45 Acetaminophen 650 mg Q6HP PRN PO 11/04/24 05:45 Nitroglycerin 0.4 mg Q5MINP PRN SL 11/04/24 05:45 Morphine Sulfate 2 mg Q30M PRN IV 11/04/24 05:45 Cefazolin Sodium 50 ml @ 100 mls/hr Q8HR IV 11/04/24 06:00 11/07/24 14:08 100 MLS/HR Sodium Chloride 10 ml QSHIFT@10,22 IV 11/07/24 22:00 objective GENERAL: Alert and oriented x 3. No acute distress. EYES: PERRL, EOMI. Anicteric. HENT: Moist mucous membranes. LUNGS: Clear to auscultation bilaterally. CARDIOVASCULAR: Regular rate and rhythm. ABDOMEN: Soft, nontender and nondistended. EXTREMITIES: BLE edema. NEUROLOGIC: No focal neurological deficits. SKIN: Warm, dry. laboratory and microbiology Laboratory Tests 11/07/24 05:12 11/06/24 05:58 11/05/24 06:22 Test 11/05/24 06:22 Range/Units Serum Glucose 96 74-106 mg/dL Problem List Sepsis secondary to bilateral lower extremity cellulitis. Acute exacerbation of congestive heart failure. Generalized weakness. CAD status post CABG. Acute kidney injury. Controlled diabetes. Cellulitis of bilateral thighs. Hypertension. Hypercholesterolemia. History of right AKA. History of left BKA. Patient is wheelchair-bound. Assessment/Plan Continued all current supportive medical care. Morphine and [place] for pain management. Amlodipine, Coreg. Aspirin, Lipitor. IV antibiotics as ordered. Diuretics with Lasix. IV Hydralazine for SBP >150. Additional plan as per the hospital course. Plan discussed with: Patient RAPHAEL CHEN MD November 07, 2024 19:53
[2024-11-07] MEDS: SODIUM CHLOR 0.9% PF (SALINE LOCK) 10ML VIAL/SYR IV SCH (22:15)
[2024-11-08] VITALS (7 sets, daily range): BP systolic 111–136; BP diastolic 61–74; PULSE 60–65; RESP 16–18; TEMP 97.2–97.7; O2SAT 96–99
--- NOTE | 2024-11-08 19:25 | DVHPN2 ---
Progress Note - Dictate Date Seen: November 08, 2024 Medical Necessity Reason Pt with a Central, PICC or Fol: No Subjective Patient was seen and evaluated in follow up. Patient has no new complaints at this time. Patient denies any cardiac symptoms. Patient is cardiac stable for discharge. Telemetry reviewed. vital signs Vital Sign Date Time Temp Pulse Resp B/P (MAP) Pulse Ox O2 Delivery O2 Flow Rate FiO2 11/08/24 12:47 97.2 60 16 114/74 (87) 96 97.2 11/08/24 08:00 Room Air* 0 21 Total Intake and Output 11/07/24 11/07/24 11/08/24 15:00 23:00 07:00 Intake Total 50 ml 50 ml 386 ml Output Total 650 ml 300 ml Balance 50 ml -600 ml 86 ml medications Current Medications Medications Dose Ordered Sig/Margo Route Start Time Stop Time Status Last Admin Dose Admin Vancomycin HCl 0 ml @ 0 mls/hr UD IV 11/04/24 05:45 Furosemide 40 mg DAILY IV 11/04/24 10:00 11/08/24 09:46 40 MG Atorvastatin Calcium 20 mg HS PO 11/04/24 22:00 11/07/24 22:15 20 MG Carvedilol 6.25 mg Q12HR PO 11/04/24 10:00 11/08/24 09:47 6.25 MG Hydralazine HCl 10 mg Q6HP PRN IV 11/04/24 05:45 Amlodipine Besylate 5 mg DAILY PO 11/04/24 10:00 11/08/24 09:47 5 MG Aspirin 81 mg DAILY PO 11/04/24 10:00 11/08/24 09:44 81 MG Tamsulosin HCl 0.4 mg QPM PO 11/04/24 18:00 11/07/24 17:33 0.4 MG Diagnostic Test (Pha) 1 strip ACHS 11/04/24 07:00 11/08/24 11:48 1 STRIP Insulin Human Regular ACHS SC 11/04/24 07:00 11/07/24 17:34 2 UNITS Dextrose 50 ml UD PRN IV 11/04/24 05:45 Sodium Chloride 10 ml Q8HR IV 11/04/24 06:00 11/08/24 05:31 10 ML Acetaminophen/ Hydrocodone Bitart 1 tab Q4HP PRN PO 11/04/24 05:45 Ondansetron HCl 4 mg Q4HP PRN IV 11/04/24 05:45 Docusate Sodium 100 mg BIDPRN PRN PO 11/04/24 05:45 Acetaminophen 650 mg Q6HP PRN PO 11/04/24 05:45 Nitroglycerin 0.4 mg Q5MINP PRN SL 11/04/24 05:45 Morphine Sulfate 2 mg Q30M PRN IV 11/04/24 05:45 Cefazolin Sodium 50 ml @ 100 mls/hr Q8HR IV 11/04/24 06:00 11/08/24 05:43 100 MLS/HR Sodium Chloride 10 ml QSHIFT@10,22 IV 11/07/24 22:00 11/08/24 09:47 10 ML objective GENERAL: Alert and oriented x 3. No acute distress. EYES: PERRL, EOMI. Anicteric. HENT: Moist mucous membranes. LUNGS: Clear to auscultation bilaterally. CARDIOVASCULAR: Regular rate and rhythm. ABDOMEN: Soft, nontender and nondistended. EXTREMITIES: BLE edema. NEUROLOGIC: No focal neurological deficits. SKIN: Warm, dry. laboratory and microbiology Laboratory Tests 11/08/24 05:30 11/06/24 05:58 11/05/24 06:22 Test 11/05/24 06:22 Range/Units Serum Glucose 96 74-106 mg/dL Problem List Sepsis secondary to bilateral lower extremity cellulitis. Acute exacerbation of congestive heart failure. Generalized weakness. CAD status post CABG. Acute kidney injury. Controlled diabetes. Cellulitis of bilateral thighs. Hypertension. Hypercholesterolemia. History of right AKA. History of left BKA. Patient is wheelchair-bound. Assessment/Plan Continued all current supportive medical care. Morphine and Mayer for pain management. Amlodipine, Coreg. Aspirin, Lipitor. IV antibiotics as ordered. Diuretics with Lasix. IV Hydralazine for SBP >150. Nitro SL. Additional plan as per the hospital course. Plan discussed with: Patient RAPHAEL CHEN MD November 08, 2024 13:03
== END 2024-11-08 21:50 | DRG 602 ==
LOC: EDBD 01:30 → ER 01:30 → OVERFLOW 05:34 → TELE-CENTR 09:18
PROVIDERS: ADMIT Family Medicine; ATTEND Family Medicine
PROC: 02HV33Z Insertion of Infusion Device into Superior Vena Cava, Percutaneous Approach (ICD-10-PCS; principal; 2024-11-07)
PROC: B548ZZA Ultrasonography of Superior Vena Cava, Guidance (ICD-10-PCS; 2024-11-07)
DX: L03.115 Cellulitis of right lower limb (principal); I50.23 Acute on chronic systolic (congestive) heart failure; N17.0 Acute kidney failure with tubular necrosis; L03.116 Cellulitis of left lower limb; I25.10 Atherosclerotic heart disease of native coronary artery without angina pectoris; E78.00 Pure hypercholesterolemia, unspecified; E11.65 Type 2 diabetes mellitus with hyperglycemia; E78.5 Hyperlipidemia, unspecified; I11.0 Hypertensive heart disease with heart failure; Z99.3 Dependence on wheelchair; Z74.01 Bed confinement status; Z88.0 Allergy status to penicillin; Z89.512 Acquired absence of left leg below knee; Z89.611 Acquired absence of right leg above knee; Z95.1 Presence of aortocoronary bypass graft; N50.89 Other specified disorders of the male genital organs
CPT/HCPCS: 36415; 36569; 71045; 76937; 80053; 80202; 81001; 82565; 82962; 83605; 83880; 84484; 85025; 85379; 85610; 85730; 87040; 93306; 93970; 96365; 96375; 97110; 97163; 97530; 99291; G0378; J1815

== ENCOUNTER 2025-02-01 13:36 | Inpatient (IN) | payer MEDICARE, MEDICAID ==
[~2025-02-01] VITALS: Ht 157.5 cm; Wt 70.7 kg
--- NOTE | 2025-02-01 13:54 | ED.PDOC ---
Musculoskeletal HPI Comments HPI: This is a 59 year old male BIBA presenting to the ED with chief complaint of left leg swelling. EMS reports patient is coming from [facility] due to experiencing swelling and redness to the stump of his left below knee amputation. Patient denies any fever, chills, chest pain, SOB, numbness, weakness, tingling, or headache. Initial Vitals BP: HR: RR: O2: Temp: Past Medical History: CHF, DM, HTN, HLD Past Surgical History: None Social History: Denies ETOH, smoking, and drug use. Medications: None Allergies: Penicillins HPI: Poor Historian. REVIEW OF SYSTEMS: CONSTITUTIONAL: Denies acute: fever, diaphoresis, chills, generalized weakness. HEAD: Denies acute: headache, photophobia Eyes: Denies acute: Double vision, vision loss, eye pain, eye discharge. EARS: Denies acute: tinnitus, hearing loss, ear discharge, ear pain, THROAT: Denies acute: sore throat, swelling, difficulty swallowing , pain with swallowing, change in voice. NECK: Denies acute: neck pain, neck swelling, stiff neck. HEART: Denies acute : chest pain, palpitations, LUNGS: Denies acute: SOB, wheezing, cough, hemoptysis ABDOMEN: Denies acute: abdominal pain, Nausea, Vomiting, diarrhea, melena , hematemesis, hematochezia SKIN: Denies acute: itchiness. EXTREMITIES: Denies acute: calf pain, numbness, tingling, weakness, denies pain in extremity. Denies acute: Low back pain. Neuro: Denies acute: focal neurological deficit, motor or sensory focal neurological deficit, tremors, seizure like activity, confusion, dizziness, change in mental status, loss of bowel or bladder function, cauda equina like symptoms. : Denies acute: dysuria, hematuria, flank pain, increase in urinary frequency. PSYCH: Denies acute: hallucination, suicidal ideation, homicidal ideation. PHYSICAL EXAM: General: -----no---acute distress, awake and alert. Head: normocephalic, atraumatic. Neck: supple, trachea is midline, no swelling. Throat: Normal phonation. Eyes:, no erythema, no purulent discharge, no proptosis, no icterus. Heart: regular rate, regular rhythm, no significant murmur appreciated. Lungs: no apparent respiratory distress, Able to speak in full sentences. No wheezing, no rhonchi, no crackles. No stridors Clear to auscultation bilaterally. Abdomen: non tender to palpation, non distended, soft, no guarding, no rebound, + bowel sounds. Neuro: Awake, Alert, oriented to name, self, situation, follows commands GCS=15. Speech is normal. Skin: no petechia, no purpura, no cyanosis, slightly pale, not jaundice. Lower extremities: --3/4 bilateral - Pitting edema no deformity, no focal swelling, no calf TTP. Bilateral lower extremity amputation. Noted left lower extremity [id number] amputation stump with the associated erythema redness and tenderness to palpation. Patient is no longer on antibioti cs. Makes eye contact. moves all four extremities. Face: no apparent facial droop. ED COURSE: DISCLAIMER: This medical document was created using an electronic medical record system with voice recognition software and computerized dictation system. Although this document has been carefully reviewed, there might still be some phonetic and typographical errors. Occasional wrong-word or "sound-alike" substitutions may have occurred due to the inherent limitations of voice recognition software. These areas are purely typographical due to imperfections of the software programs and do not reflect any compromise in the patient's medical care. Please read the chart carefully and recognize, using context, where these substitutions have occurred. Time Seen by MD: 13:51 Reviewed Notes: Medications, Allergies Allergies: Coded Allergies: Penicillins (Verified Allergy, Unknown, 12/31/23) Home Meds Reported Medications Potassium Chloride (Klor-Con M20) 20 Meq Tab, 20 MEQ PO DAILY, TAB 02/01/25 Docusate Sodium (Colace) 100 Mg Cap, 1 CAP PO BID, #30 CAP 02/01/25 Acetaminophen (Tylenol) 325 Mg Tb, 325 MG PO QID, TAB 02/01/25 Acetaminophen (Tylenol) 325 Mg Cap, 325 MG PO 6XD, CAP 02/01/25 Levofloxacin Hemihydrate (LEVAQUIN 500 MG) 500 Mg Tab, 1 TAB PO DAILY, #7 TAB 02/01/25 Omeprazole (Gnp Omeprazole) 20 Mg Tab, 1 TAB PO DAILY, #90 TAB 1 Refill 02/01/25 Nifedipine (Nifedipine Er) 30 Mg Tab, 1 TAB PO DAILY for 90 Days, #90 11/06/24 Aspirin (Aspirin Low Dose) 81 Mg Tab, 1 TAB PO QAM for 90 Days, #90 11/06/24 Tamsulosin Hcl (Tamsulosin Hcl) 0.4 Mg Cap, 1 CAP PO HS for 90 Days, #90 11/06/24 Metoclopramide HCl (Metoclopramide Hydrochlor) 10 Mg Tab, 1 TAB PO TID for 30 Days, #90 11/06/24 Atorvastatin Calcium (ATORVASTATIN CALCIUM) 80 Mg Tab, 1 TAB PO DAILY for 90 Days, #90 11/06/24 Lisinopril (Lisinopril) 20 Mg Tab, 1 TAB PO DAILY for 90 Days, #90 11/06/24 Information Source: Friend Mode of Arrival: Ambulatory Location: Left Extremity Location: Leg Timing: Days Prehospital treatment: None Severity: Moderate Able to Move Extremity: No Bear Weight: No Pain: Moderate Mechanism: Spontaneous Circumstances: Preceding Wound Onset of Symptoms: Spontaneous Symptoms: Swelling, Pain, Erythema DVT Risk Factors: CHF Last Tetanus: Unknown Was a procedure done? Was a procedure done?: No Differential Diagnosis EXT Differential Diagnosis: Compartment Syndrome, Other (Leg swellingDdx include but not limited to DVT, ischemic limb, pitting edema, volume overload, CHF, cellulitis, hematoma, compartment syndrome, dependent edema, venous stasis.) X-Ray, Labs, Meds, VS Vital Signs Date Time Temp Pulse Resp B/P (MAP) Pulse Ox O2 Delivery O2 Flow Rate FiO2 02/01/25 16:00 97.9 87 16 155/88 (110) 97 97.9 02/01/25 14:00 97.9 89 16 155/91 (112) 96 97.9 02/01/25 14:00 Nasal Cannula* 3 32 02/01/25 13:40 98.3 85 20 134/84 97 98.3 Lab Test 02/01/25 14:12 Range/Units White Blood Count 7.0 4.4-10.8 10^3/uL Red Blood Count 3.36 L 4.5-5.90 10^6/uL Hemoglobin 10.8 L 13.5-17.5 g/dL Hematocrit 31.3 L 41.0-53.0 % Mean Corpuscular Volume 93.1 80.0-100.0 fL Mean Corpuscular Hemoglobin 32.2 H 28.0-32.0 pg Mean Corpuscular Hemoglobin Concent 34.6 32.0-36.0 g/dL Red Cell Distribution Width 16.2 H 11.8-14.3 % Platelet Count 251 140-450 10^3/uL Mean Platelet Volume 8.6 6.9-10.8 fL Neutrophils (%) (Auto) 70.8 37.0-80.0 % Lymphocytes (%) (Auto) 18.1 10.0-50.0 % Monocytes (%) (Auto) 8.4 0.0-12.0 % Eosinophils (%) (Auto) 2.1 0.0-7.0 % Basophils (%) (Auto) 0.6 0.0-2.0 % Neutrophils # (Auto) 4.9 1.6-8.6 10 ^3/uL Lymphocytes # (Auto) 1.3 0.4-5.4 10 ^3/uL Monocytes # (Auto) 0.6 0-1.3 10 ^3/uL Eosinophils # (Auto) 0.1 0-0.8 10 ^3/uL Basophils # (Auto) 0 0-0.2 10 ^3/uL Nucleated Red Blood Cells 0.0 % Erythrocyte Sedimentation Rate 40 H 0-20 mm/hr Sodium Level 132 L 136-145 mmol/L Potassium Level 4.7 3.5-5.1 mmol/L Chloride Level 98 98-107 mmol/L Carbon Dioxide Level 27 20-31 mmol/L Anion Gap 7 5-15 Blood Urea Nitrogen 38 H 9-23 mg/dL Creatinine 1.49 H 0.700-1.30 mg/dL Glomerular Filtration Rate Calc 53 >90 mL/min BUN/Creatinine Ratio 25.5 H 10.0-20.0 Serum Glucose 128 H 74-106 mg/dL Lactic Acid Level 1.1 0.4-2.0 mmol/L Calcium Level 8.3 L 8.7-10.4 mg/dL Magnesium Level 1.9 1.6-2.6 mg/dL Total Bilirubin 0.7 0.2-1.0 mg/dL Aspartate Amino Transferase (AST) 36 13-40 U/L Alanine Aminotransferase (ALT) 28 7-40 U/L Alkaline Phosphatase 554 H 46-116 U/L Troponin I High Sensitivity 8 </=54 ng/L C-Reactive Protein High Sensitivity 1.63 H <1.0 mg/dL B-Type Natriuretic Peptide 2901.36 0-100 pg/mL Total Protein 6.9 5.7-8.2 g/dL Albumin 3.4 3.2-4.8 g/dL [place] [id number] Ph: [phone] DIAGNOSTIC IMAGING Diagnostic Imaging Report : [id number] Signed PATIENT: JAGRUTI JEREZ ACCT: [id number] UNIT: [id number] : 1965 LOC: ER ROOM / BED: / AGE / SEX: 59 / M ADM STATUS: REG ER SERVICE 1602 ORDERING PHYSICIAN: MARLENY HUDSON DO PROCEDURE(s): CXRP - CHEST PORTABLE REASON: swelling ORDER NUMBER(s): [id number], ACCESSION NUMBER(s): [id number] AP portable chest Comparison: 11/04/2024 CLINICAL INDICATION: swelling FINDINGS: Heart size is enlarged. Congestive changes with right subpulmonic pleural effusion IMPRESSION: 1. Probable pulmonary edema. An underlying pneumonia in the right lower lung zone can not be excluded ATED BY: DANNY SPEARS MD DICTATED DATE/TIME: 02/01/25 1637 SIGNED BY: DANNY SPEARS MD SIGNED DATE/TIME: 02/01/25 1637 CC: [place] [id number] Ph: [phone] DIAGNOSTIC IMAGING Diagnostic Imaging Report : [id number] Signed PATIENT: JAGRUTI JEREZ ACCT: [id number] UNIT: [id number] : 1965 LOC: ER ROOM / BED: / AGE / SEX: 59 / M ADM STATUS: REG ER SERVICE 1635 ORDERING PHYSICIAN: MARLENY HUDSON DO PROCEDURE(s): BLDVT - BiLat Lower DVT REASON: swelling redness ORDER NUMBER(s): [id number], ACCESSION NUMBER(s): [id number] Bilateral lower extremity venous Doppler INDICATION: swelling redness TECHNIQUE: Duplex venous sonography was performed with real-time and flow sensitive images submitted for evaluation. FINDINGS: Normal phasic venous flow. Veins are fully compressible. No filling defects. IMPRESSION: 1. No evidence of deep vein thrombosis. ATED BY: DANNY SPEARS MD DICTATED DATE/TIME: 02/01/251714 SIGNED BY: DANNY SPEARS MD SIGNED DATE/TIME: 02/01/251714 CC: [place] [id number] Ph: [phone] DIAGNOSTIC IMAGING Diagnostic Imaging Report : [id number] Signed PATIENT: JAGRUTI JEREZ ACCT: [id number] UNIT: [id number] : 1965 LOC: OVERFLOW ROOM / BED: [address] [place] [address] AGE / SEX: 59 / M ADM STATUS: ADM IN SERVICE 40 ORDERING PHYSICIAN: KAREN GARCÍA DNP PROCEDURE(s): LTBFB - L TIB FIB XRAY REASON: eval for left for foreign body and fx and om ORDER NUMBER(s): [id number], ACCESSION NUMBER(s): [id number] EXAM: XY L TIB FIB XRAY REASON FOR EXAM: eval for left for foreign body and fx and om TECHNIQUE: AP and lateral views of the left tibia and fibula are submitted for review. COMPARISON: None FINDINGS: There is demineralization of the bones. There is below-knee amputation. No acute fracture is identified. There is no retained radiopaque foreign body. There are vascular calcifications. The soft tissues appear otherwise unremarkable. IMPRESSION: Below-knee amputation. No acute fracture identified. No retained radiopaque foreign body. ATED BY: FEMI BENITEZ MD DICTATED DATE/TIME: 02/01/251900 SIGNED BY: FEMI BENITEZ MD SIGNED DATE/TIME: 02/01/251900 CC: Time of 1ST Reevaluation: 14:49 Reevaluation 1ST: Unchanged Patient Education/Counseling: Diagnosis, Treatment Family Education/Counseling: No Family Present Comments MDM: patient presented with the above HPI.---leg swelling---workup was initiated. patient was found with the above mentioned diagnosis. the following medications were ordered: please refer to order lists of meds and tests obtained by myself Dr. Hudson. Patient ED course and VS have been stabilized. Patient has been reassessed in the ED and remained in a stable condition. Pertinent incidental findings were discussed with the patient and/or family. Patient/family voices understanding and is agreeable with plan. Patient has been observed in the ED adequate length of time to insure improvement/stability. Escalation of care considered: Consideration of escalation to observation or admission Patient was ADMITTED to the medicine team for further evaluation and treatment of their presentation. All the reports of any imaging studies that were ordered by myself were reviewed by myself. Departure 1 Departure Time of Disposition: 16:05 Impression: Primary Impression: Left leg cellulitis Additional Impressions: Anemia CHF exacerbation Disposition: ADMITTED INPATIENT Admit to: Tele Condition: Guarded Discharged With: Self Critical Care Note Critical Care Time?: Yes (45 min-critical care time only) I personally scribed for MARLENY HUDSON DO ([email or web address]) on 02/01/25 at 13:54. Electronically submitted by Isauro Cantu ([email or web address]). I personally scribed for MARLENY HUDSON DO ([email or web address]) on 02/01/25 at 14:13. Electronically submitted by Isauro Cantu ([email or web address]). I personally scribed for MARLENY HUDSON DO ([email or web address]) on 02/01/25 at 15:23. Electronically submitted by Isauro Cantu ([email or web address]). I personally scribed for MARLENY HUDSON DO ([email or web address]) on 02/01/25 at 18:55. Electronically submitted by Oswaldo Sullivan ([email or web address]). MARLENY HUDSON DO Feb 01, 2025 13:54
[2025-02-01 14:29] LABS: Hematocrit 31.3 % (41.0-53.0); Hemoglobin 10.8 g/dL (13.5-17.5); Mean Corpuscular Hemoglobin 32.2 pg (28.0-32.0); Mean Corpuscular Volume 93.1 fL (80.0-100.0); Nucleated Red Blood Cells % 0.0 %
[2025-02-01 14:40] LABS: Alanine Aminotransferase 28 U/L (7-40); Albumin 3.4 g/dL (3.2-4.8); Anion Gap 7 (5-15); BUN/Creatinine Ratio 25.5 (10.0-20.0); Bilirubin, Total 0.7 mg/dL (0.2-1.0); Carbon Dioxide 27 mmol/L (20-31); Magnesium 1.9 mg/dL (1.6-2.6); Potassium 4.7 mmol/L (3.5-5.1); Total Protein 6.9 g/dL (5.7-8.2)
[2025-02-01 14:45] LABS: Blood Urea Nitrogen 38 mg/dL (9-23); Calcium 8.3 mg/dL (8.7-10.4); Chloride 98 mmol/L (98-107); Glucose 128 mg/dL (74-106); Sodium 132 mmol/L (136-145)
[2025-02-01 16:06] LABS: Alkaline Phosphatase 554 U/L (46-116)
--- NOTE | 2025-02-01 16:40 | DVH ---
AP portable chest Comparison: 11/04/2024 CLINICAL INDICATION: swelling FINDINGS: Heart size is enlarged. Congestive changes with right subpulmonic pleural effusion IMPRESSION: 1. Probable pulmonary edema. An underlying pneumonia in the right lower lung zone can not be excluded
--- NOTE | 2025-02-01 17:17 | DVH ---
Bilateral lower extremity venous Doppler INDICATION: swelling redness TECHNIQUE: Duplex venous sonography was performed with real-time and flow sensitive images submitted for evaluation. FINDINGS: Normal phasic venous flow. Veins are fully compressible. No filling defects. IMPRESSION: 1. No evidence of deep vein thrombosis.
[2025-02-01] MEDS ORDERED: FUROSEMIDE 40 MG/4 ML VIAL IV ONE (17:30)
[2025-02-01] MEDS ORDERED: CEFEPIME 2GM/50ML NS 50 ML IV ONE (17:30)
[2025-02-01] MEDS ORDERED: NITROGLYCERIN 0.4 MG SL TAB SL PRN (17:30)
[2025-02-01] MEDS ORDERED: DEXTROSE (50%) 50ML SYRG IV PRN (17:30)
[2025-02-01] MEDS ORDERED: VANCOMYCIN PER PHARMACY 0 MG IV SCH (17:30)
[2025-02-01] MEDS ORDERED: ONDANSETRON HCL 4 MG/2 ML VIAL IV PRN (17:30)
[2025-02-01] MEDS ORDERED: DOCUSATE SOD 100 MG CAP PO PRN (17:30)
--- NOTE | 2025-02-01 17:58 | DVHHP2 ---
History of Present Illness Reason for Visit: acute left wound and and swelling History of Present Illness 59-year-old male past medical history CHF diabetes hypertension hyperlipidemia appears to have a history of left BKA and right AKA chief complaint patient states he has had no [facility] and he has noticed that in the last two days he has a blister to his left inner leg with the BKA was completed in his draining he states the drainage coming from his leg from so much edema. He states he had some pain and redness to that wound no fever no chest pain but he does have some shortness of the breath he patient said he does takes Lasix he has been taking his scheduled. When evaluating patient's labs and imaging Lasix was given clindamycin CBC shows hemoglobin 10.8 31.3 ESR is 40 sodium was 132 creatinine is 1.69 and 38 glucose was 120 CRP is 1.65 BNP is 290 chest x-ray shows pulmonary edema with these findings we will admit patient for further workup and care IV antibiotics for acute infection we will ask for Wound Care consult Past Medical History See HPI above Past Surgical History See HPI above Family History Reviewed, non-contributory to the management of this case. Past Social History The patient lives at home, denies smoking, alcohol or illicit drugs abuse. Review of Systems Constitutional: No: Fever, Chills, Sweats, Weakness, Malaise, Other Eyes: No: Pain, Vision change, Conjunctivae inflammation, Eyelid inflammation, Other, Redness ENT: No: Ear pain, Ear discharge, Nose pain, Nose discharge, Nose congestion, Mouth pain, Mouth swelling, Throat pain, Throat swelling, Other Respiratory: No: Cough, Dry, Shortness of breath, SOB with excertion, Wheezing, Hemoptysis, Pleuritic Pain, Sputum, Wheezing, Other Cardiovascular: No: Chest Pain, Palpitations, Orthopnea, Paroxysmal Noc. Dyspnea, Edema, Lt Headedness, Other Gastrointestinal: No: Nausea, Vomiting, Abdominal Pain, Diarrhea, Constipation, Melena, Hematochezia, Other Genitourinary: No Dysuria, No Frequency, No Incontinence, No Hematuria, No Retention, No Other Musculoskeletal: leg pain (left bka ); No: other, neck pain, shoulder pain, arm pain, back pain, hand pain, foot pain Allergies: Coded Allergies: Penicillins (Verified Allergy, Unknown, 12/31/23) Exam Vital Signs Vital Signs Date Time Temp Pulse Resp B/P (MAP) Pulse Ox O2 Delivery O2 Flow Rate FiO2 02/01/25 13:40 98.3 85 20 134/84 97 98.3 General Appearance: Alert, Oriented X3, Cooperative, No acute distress HEENT: Atraumatic, PERRLA, EOMI, Mucous membr. moist/pink Respiratory: Other (dimished throughout ) Cardiovascular: Regular rate, Normal S1, Normal S2, No murmurs Abdominal: Normal bowel sounds, Soft, No tenderness, No hepatospenomegaly, No masses Extremities: No clubbing, Other (left inner lateral bka with blisters that has opened with some erythema, some drainage seen, compartment soft ) Neuro: Other (neuro non focal does have right aka, left bka ) Labs/Xrays Chest x-ray shows pulmonary edema I reviewed labs, imaging CT scan abdomen pelvis, EKG and all diagnostic studies on this patient from ED records and the medical chart Labs Test 02/01/25 14:12 Range/Units White Blood Count 7.0 4.4-10.8 10^3/uL Red Blood Count 3.36 L 4.5-5.90 10^6/uL Hemoglobin 10.8 L 13.5-17.5 g/dL Hematocrit 31.3 L 41.0-53.0 % Mean Corpuscular Volume 93.1 80.0-100.0 fL Mean Corpuscular Hemoglobin 32.2 H 28.0-32.0 pg Mean Corpuscular Hemoglobin Concent 34.6 32.0-36.0 g/dL Red Cell Distribution Width 16.2 H 11.8-14.3 % Platelet Count 251 140-450 10^3/uL Mean Platelet Volume 8.6 6.9-10.8 fL Neutrophils (%) (Auto) 70.8 37.0-80.0 % Lymphocytes (%) (Auto) 18.1 10.0-50.0 % Monocytes (%) (Auto) 8.4 0.0-12.0 % Eosinophils (%) (Auto) 2.1 0.0-7.0 % Basophils (%) (Auto) 0.6 0.0-2.0 % Neutrophils # (Auto) 4.9 1.6-8.6 10 ^3/uL Lymphocytes # (Auto) 1.3 0.4-5.4 10 ^3/uL Monocytes # (Auto) 0.6 0-1.3 10 ^3/uL Eosinophils # (Auto) 0.1 0-0.8 10 ^3/uL Basophils # (Auto) 0 0-0.2 10 ^3/uL Nucleated Red Blood Cells 0.0 % Erythrocyte Sedimentation Rate 40 H 0-20 mm/hr Sodium Level 132 L 136-145 mmol/L Potassium Level 4.7 3.5-5.1 mmol/L Chloride Level 98 98-107 mmol/L Carbon Dioxide Level 27 20-31 mmol/L Anion Gap 7 5-15 Blood Urea Nitrogen 38 H 9-23 mg/dL Creatinine 1.49 H 0.700-1.30 mg/dL Glomerular Filtration Rate Calc 53 >90 mL/min BUN/Creatinine Ratio 25.5 H 10.0-20.0 Serum Glucose 128 H 74-106 mg/dL Lactic Acid Level 1.1 0.4-2.0 mmol/L Calcium Level 8.3 L 8.7-10.4 mg/dL Magnesium Level 1.9 1.6-2.6 mg/dL Total Bilirubin 0.7 0.2-1.0 mg/dL Aspartate Amino Transferase (AST) 36 13-40 U/L Alanine Aminotransferase (ALT) 28 7-40 U/L Alkaline Phosphatase 554 H 46-116 U/L Troponin I High Sensitivity 8 </=54 ng/L C-Reactive Protein High Sensitivity 1.63 H <1.0 mg/dL B-Type Natriuretic Peptide 2901.36 0-100 pg/mL Total Protein 6.9 5.7-8.2 g/dL Albumin 3.4 3.2-4.8 g/dL SEPSIS Sepsis Screen Date sepsis recognized/suspect: Feb 01, 2025 Time Sepsis recognized/suspect: 0 Recent Procedure: No On Antibiotic Therapy: No Respiratory Rate >20: No Heart Rate >90: No Temp<36 C (96.8 F) or >38.3 C: No SBP <90 or MAP <65 mmHG: No New Acute Mental Status Change: No Is the patient on CPAP, BIPAP,: No Physician Orders Urinalysis (02/01/25 13:50) Chest Portable (02/01/25 16:02) Bilat Lower Dvt (02/01/25 16:35) Aspirin Enteric Coated Tablet (Ecotrin E (02/02/25 07:00) Nifedipine Er (Procardia Xl (Time-Releas (02/02/25 10:00) Tamsulosin Hydrochloride (Flomax) (02/01/25 22:00) (Nf) Atorvastatin Calcium (02/02/25 10:00) Admit (02/01/25:26) Allergies (02/01/25:) Code Status (02/01/25:) Ondansetron Hcl (Zofran) (02/01/25 17:30) Docusate Sodium Capsule (Colace Capsule) (02/01/25 17:30) Fall Risk Precautions In Place QSHIFT (02/01/25:) Complete Blood Count (02/02/25 04:00) Comprehensive Metabolic Panel (02/02/25 04:00) Cardiac Diet-2gna,Lofat,Lochol (02/01/25 Dinner) Condition: Stable (02/01/25:) Maintain Bed Rest (02/01/25:) Morphine Sulfate Injection (02/01/25 17:30) Lovenox 40mg (02/01/25 17:30) Nitroglycerin Sublingual (Ntrostat Subli (02/01/25 17:30) Stat Ekg For Chest Pain (02/01/25:) Notify Of Changes From Base (02/01/25:) Utility Systems Repairer Operator For 24 Hours (02/01/25:26) Emergency Dysrhythmia Protocol (02/01/25:) Rhythm Strips Once Every Shift (02/01/25:26) Oxygen By Nasal Cannula (02/01/25:) Furosemide Injection (Lasix Injection) (02/01/25 18:00) Furosemide Injection (Lasix Injection) (02/01/25 17:30) Strict I & O QSHIFT (02/01/25:) Vital Signs Date Time Temp Pulse Resp B/P (MAP) Pulse Ox O2 Delivery O2 Flow Rate FiO2 02/01/25 13:40 98.3 85 20 134/84 97 98.3 Laboratory Tests Test 02/01/25 14:12 Lactic Acid Level 1.1 mmol/L (0.4-2.0) White Blood Count 7.0 10^3/uL (4.4-10.8) Assessment/Plan Assessment/Plan acute cellulitis to inner left wound hx bka xray of leg ordered vanco and cefepime for now ordered wound cultures fu results ordered wound consult fu results ordered morphine prn pain elevate to help with swelling acute on chronic diastolic systolic heart failure found on cxr bnp 290 ordered lasix strict i/o's ordered echo ef 15% completed 11/05/24 consider cards consult if no improvement acute on chronic tod cont lasix for now hold lisinopril strict i/o's if uptrend consider renal consult chronic problems chf dm htn hld anemia of chronic disease fen/ppx diet hl lovenox no gi ppx since no hx of gerds or gi bleed plan admit to tele cards consult for iv antibiotics Plan discussed with: Patient My Orders Orders - KAREN GARCÍA DNP Procedure Category Date Status Time Aspirin Enteric PHA 02/02/25 Verified Coated Tablet 07:00 Nifedipine Er PHA 02/02/25 Verified (Procardia Xl 10:00 Tamsulosin PHA 02/01/25 Verified Hydrochloride (Flomax) 22:00 (Nf) Atorvastatin PHA 02/02/25 Verified Calcium 10:00 Admit ADMIT 02/01/25 Verified 17:26 Allergies SOLO 02/01/25 Verified 17:26 Code Status CODE 02/01/25 Verified 17:26 Ondansetron Hcl PHA 02/01/25 Verified (Zofran) 17:30 Docusate Sodium PHA 02/01/25 Verified Capsule (Colace 17:30 Fall Risk Precautions SOLO 02/01/[address] 17:26 Complete Blood Count LAB 02/02/25 Verified 04:00 Comprehensive LAB 02/02/25 Verified Metabolic Panel 04:00 Cardiac DIET 02/01/25 Verified Diet-2gna,Lofat,Lochol Dinner Condition: Stable [facility]O 02/01/25 Verified 17:26 Maintain Bed Rest SOLO 02/01/25 Verified 17:26 Morphine Sulfate PHA 02/01/25 Verified Injection 17:30 Lovenox 40mg PHA 02/01/25 Verified 17:30 Nitroglycerin PHA 02/01/25 Verified Sublingual (Ntrostat 17:30 Stat Ekg For Chest SOLO 02/01/25 Verified Pain 17:26 Notify Of Changes [facility]O 02/01/25 Verified From Base 17:26 Utility Systems Repairer Operator For [facility] 02/01/25 Verified 24 Hours 17:26 Emergency Dysrhythmia [facility] 02/01/25 Verified Protocol 17:26 Rhythm Strips Once [facility] 02/01/25 Verified Every Shift 17:26 Oxygen By Nasal RT 02/01/25 Verified Cannula 17:26 Furosemide Injection [facility] 02/01/25 Verified (Lasix Injection) 18:00 Furosemide Injection PHA 02/01/25 Verified (Lasix Injection) 17:30 Strict I & O [facility] 02/01/25 Verified 17:26 Date of Service: Feb 01, 2025 Billing Provider: KAREN GARCÍA DNP Common Visit Codes: [id number] INP/OBS CARE (HIGH) KAREN GARCÍA DNP Feb 01, 2025 17:58
[2025-02-01] MEDS ORDERED: VANCOMYCIN 1.25GM/250ML 250 ML IV ONE (18:00)
[2025-02-01] MEDS: FUROSEMIDE 40 MG/4 ML VIAL IV ONE (18:18)
[2025-02-01] MEDS: CLINDAMYCIN 900MG IV 50 ML IV ONE (18:18)
--- NOTE | 2025-02-01 19:04 | DVH ---
EXAM: XY L TIB FIB XRAY REASON FOR EXAM: eval for left for foreign body and fx and om TECHNIQUE: AP and lateral views of the left tibia and fibula are submitted for review. COMPARISON: None FINDINGS: There is demineralization of the bones. There is below-knee amputation. No acute fracture i s identified. There is no retained radiopaque foreign body. There are vascular calcifications. The so ft tissues appear otherwise unremarkable. IMPRESSION: Below-knee amputation. No acute fracture identified. No retained radiopaque foreign body.
[2025-02-01 20:21] VITALS: PULSE 86; RESP 97; O2SAT 97
[2025-02-01] MEDS: ENOXAPARIN SOD 40 MG/0.4 ML SYRINGE SC SCH (20:44)
[2025-02-01] MEDS: FUROSEMIDE 40 MG/4 ML VIAL IV SCH (20:51)
[2025-02-01] MEDS: CEFEPIME 2GM/50ML NS 50 ML IV ONE (20:52)
[2025-02-01 21:00] VITALS: BP 144/89; PULSE 83; RESP 17; TEMP 97.9; O2SAT 98
[2025-02-01] MEDS: VANCOMYCIN 1.25GM/250ML 250 ML IV ONE (21:34)
[2025-02-01] MEDS: TAMSULOSIN HYDROCHLORIDE 0.4 MG CAP PO SCH (21:34)
[2025-02-01] MEDS: ATORVASTATIN 20 MG TAB PO SCH (21:34)
[2025-02-01] MEDS: InsuLIN REG 1unit/0.01ml Soln (100units/ml) SC SCH (21:35)
[2025-02-01] MEDS: ACCU-CHEK COMFORT CURVE STRIP VI SCH (21:35)
[2025-02-01 22:29] LABS: Urine Protein, UAD TRACE (Negative)
[2025-02-01] MEDS ORDERED: OMEP20TA PO (23:54)
[2025-02-01] MEDS ORDERED: DOCU-94 PO (23:54)
[2025-02-01] MEDS ORDERED: ACET-1079 PO (23:54)
[2025-02-01] MEDS ORDERED: ACET1CAP14 PO (23:54)
[2025-02-01] MEDS ORDERED: LEVO500T91 PO (23:54)
[2025-02-01] MEDS ORDERED: POTA-220 PO (23:55)
[2025-02-02] VITALS (8 sets, daily range): BP systolic 123–146; BP diastolic 61–88; PULSE 74–86; RESP 16–20; TEMP 97–98.3; O2SAT 92–100
[2025-02-02] MEDS: ASPirin-EC 81 mg tab PO SCH (05:53)
[2025-02-02 08:07] LABS: Hematocrit 26.4 % (41.0-53.0); Hemoglobin 9.1 g/dL (13.5-17.5); Mean Corpuscular Hemoglobin 32.2 pg (28.0-32.0); Mean Corpuscular Volume 93.9 fL (80.0-100.0); Nucleated Red Blood Cells % 0.2 %
[2025-02-02 08:25] LABS: Alanine Aminotransferase 22 U/L (7-40); Anion Gap 9 (5-15); BUN/Creatinine Ratio 29.1 (10.0-20.0); Carbon Dioxide 26 mmol/L (20-31); Chloride 98 mmol/L (98-107); Glucose 87 mg/dL (74-106); Potassium 4.8 mmol/L (3.5-5.1); Total Protein 6.2 g/dL (5.7-8.2)
[2025-02-02 08:26] LABS: Bilirubin, Total 1.0 mg/dL (0.2-1.0)
[2025-02-02 08:33] LABS: Albumin 3.1 g/dL (3.2-4.8); Alkaline Phosphatase 463 U/L (46-116); Blood Urea Nitrogen 43 mg/dL (9-23); Calcium 8.1 mg/dL (8.7-10.4); Sodium 133 mmol/L (136-145)
[2025-02-02] MEDS: CEFEPIME 2GM/50ML NS 50 ML IV SCH (10:12)
[2025-02-02] MEDS: MORPHINE SULFATE INJ 2 MG/ml SYRG IV PRN (10:14)
[2025-02-02 10:21] LABS: INR 1.09 (0.9-1.15); Partial Thromboplastin Time 33.4 SEC (24.5-34.5); Prothrombin Time 11.5 sec (9.3-11.8)
[2025-02-02 10:22] LABS: Magnesium 2.1 mg/dL (1.6-2.6)
[2025-02-02] MEDS: ERGOCALCIFEROL 50,000 UNIT(1.25MG) CAP PO SCH (14:44)
[2025-02-02 16:11] LABS: Amphetamine Screen, Urine Neg (NEGATIVE); Protein, Urine 32.8 mg/dL (1-14)
[2025-02-02 16:13] LABS: Barbiturate Scree,Urine Neg (NEGATIVE); Benzodiazephine Screen, Urine Neg (NEGATIVE); Cannabinoid Screen, Urine Neg (NEGATIVE); Cocaine Screen, Urine Neg (NEGATIVE); Opiate Scree,Urine Neg (NEGATIVE); Phencyclidine Screen, Urine Neg (NEGATIVE)
--- NOTE | 2025-02-02 16:31 | DVHPNRES ---
Progress Note Date Seen: Feb 02, 2025 Resident Creating Document: JAYNE MEADOWS RESIDENT Medical Necessity Reason Pt with a Central, PICC or Fol: No Subjective Review of Systems Patient is a 59-year-old male with past medical history of HFrEF EF15%, type 2 diabetes mellitus, hypertension, hyperlipidemia, has left BKA and right AKA. Patient came to the ED with chief complaint of bilateral leg swelling, a blister on the left stump, which is draining fluid since 1 month. The blister on the right stump was present since 1 week,states he had some pain and redness around the blister. Patient has been in rehab since 4 months in [facility]. Patient was recently admitted in this facility on October 2024 for Sepsis secondary to bilateral lower extremity cellulitis., and was discharged with vanc and Zosyn for 2 weeks. Wound consult was placed. past surgical history: CABG surgery in [place], S/P PCI with 2 stents. Family history: reviewed, noncontributory personal history: Patient denies smoking, alcohol or any drug use. pcp- Dr. Ferreira Constitutional: Denies weight loss, fever and chills. HEENT: Denies changes in vision and hearing. Respiratory: Denies shortness of breath and cough Cardiovascular: Denies chest discomfort or palpitations GI: Mild abdominal distention, reports improvement on abdominal discomfort. : Denies dysuria and urinary frequency. Musculoskeletal: Denies myalgias and joint pain Skin: Denies rash and pruritus. Neurological: Denies dizziness, headache, vision or hearing problems 02/02/2025 Patient seen at bedside. Patient is alert x3, in no distress, complains of mild shortness of breath, mild pain in his left leg stump with watery drainage which soaks up his bed since 1 month, he has bilateral leg swelling but more on the right leg, patient states that the blister has been present for 1 week and is painful. Patient is on room air and does not use home oxygen. ESR was elevated, chest x-ray shows Probable pulmonary edema. An underlying pneumonia in the right lower lung zone can not be excluded. Venous Doppler shows No evidence of deep vein thrombosis. X-ray tibia/ fibula showed Below-knee amputation. No acute fracture identified. No retained radiopaque foreign body. Patient had vitamin-D deficiency, was supplemented vitamin-D 5000 units per week. Patient was started on IV vancomycin , cefepime, furosemide 40 mg b.i.d. Objective vital signs Vital Sign Date Time Temp Pulse Resp B/P (MAP) Pulse Ox O2 Delivery O2 Flow Rate FiO2 02/02/25 12:33 97.8 75 18 145/85 (105) 100 97.8 02/01/25 20:21 Nasal Cannula* 2 28 Total Intake and Output 02/01/25 02/01/25 02/02/25 15:00 23:00 07:00 Intake Total 300 ml Output Total 1600 ml Balance -1300 ml medications Current Medications Medications Dose Ordered Sig/Margo Route Start Time Stop Time Status Last Admin Dose Admin Aspirin 81 mg QAM PO 02/02/25 07:00 02/02/25 05:53 81 MG Nifedipine 30 mg DAILY PO 02/02/25 10:00 02/02/25 10:12 30 MG Tamsulosin HCl 0.4 mg HS PO 02/01/25 22:00 02/01/25 21:34 0.4 MG Atorvastatin Calcium 80 mg HS PO 02/01/25 22:00 02/01/25 21:34 80 MG Ondansetron HCl 4 mg Q4HP PRN IV 02/01/25 17:30 Docusate Sodium 100 mg BIDPRN PRN PO 02/01/25 17:30 Morphine Sulfate 2 mg Q4HPRN PRN IV 02/01/25 17:30 02/02/25 10:14 2 MG Enoxaparin Sodium 40 mg DAILY SC 02/01/25 17:30 02/02/25 10:13 40 MG Nitroglycerin 0.4 mg Q5MINP PRN SL 02/01/25 17:30 Furosemide 40 mg BIDD IV 02/01/25 18:00 02/02/25 05:53 40 MG Vancomycin HCl 0 ml @ 0 mls/hr UD IV 02/01/25 17:30 Cefepime HCl 50 ml @ 12.5 mls/hr Q12HR IV 02/02/25 10:00 02/02/25 10:12 12.5 MLS/HR Diagnostic Test (Pha) 1 strip ACHS 02/01/25 22:00 02/02/25 14:45 1 STRIP Insulin Human Regular ACHS SC 02/01/25 22:00 Dextrose 50 ml UD PRN IV 02/01/25 17:30 Ergocalciferol 50,000 unit Q7D PO 02/02/25 14:15 02/02/25 14:44 50,000 UNIT Examination General: Patient alert and oriented in person, place and time. Patient following commands. HEENT: Normocephalic, atraumatic, moist mucous membranes Respiratory/pulmonary: Fine Crackles present in right side Cardiovascular: Normal heart sounds S1 and S2 with no associated murmurs Abdomen: Abdomen nondistended, there is no pain to palpation in any of the abdominal quadrants, no palpable masses. Extremities: Right BKA, left AKA, 2+ bilateral lower extremity pitting edema Peripheral Pulses: 3+ Radial (R). 3+ Radial (L). 3+ Dorsalis pedis (R). 3+ Dorsalis pedis(L) Skin: No rashes or pruritus, there is no sacral edema present at this time. Neurological: Intact cranial nerves with no focal neurologic deficits laboratory and microbiology Laboratory Tests 02/02/25 06:07 Test 02/02/25 06:07 Range/Units Serum Glucose 87 74-106 mg/dL Microbiology Date/Time Source Procedure Growth Status 02/01/25 22:00 Nose MRSA Screen - Final Complete Labs and/or images reviewed: Labs reviewed by me, Image(s) reviewed by me Problem List/Assessment/Plan Problem List/Assessment/Plan # acute RLE stump infection # possible acute cellulitis of left stump # history of right below-knee amputation # history of left above-knee amputation - x-ray showed Below-knee amputation. No acute fracture identified. No retained radiopaque foreign body. - venous Doppler showed No evidence of deep vein thrombosis. - ordered wound consult, pending - wound cultures, pending - patient started on IV vancomycin, cefepime - both legs are elevated - given morphine 2 mg for pain #acute hypoxic resp failure # Acute on chronic CHF, HFrEF, NYHA- 3 #Pul edema # Uncontrolled hypertension - troponins negative - held lisinopril - strict I&Os - previous echo showed EF of 15% on 11/05/2024 - # Acute JEREMÍAS on CKD 3a # anemia likely d/t ckd - strict I&Os - IV fluids given -fena? # vitamin-D deficiency - vitamin-D 78922 units per week given # hyperlipidemia - continue atorvastatin #obesity PPD PPX: Not indicated DVT PPX: Lovenox Goals of care addressed with the patient for more than 27 minutes: Full code status Case discussed with Dr. Ortega , patient and nurse Plan discussed with: Patient My Orders My Orders Orders - JAYNE MEADOWS RESIDENT Procedure Category Date Status Time Ergocalciferol PHA 02/02/25 In Process (Vitamin D 50,000 14:15 Free T4 (Free LAB 02/02/25 Logged Thyroxine) 14:08 Dietary Evaluation Review Comments: Nutrition Recommendation 1) Ensure high protein 240ml BID 2) Kofi 1 pk BID 3) Monitor PO intake, lab values, weight trend, and I/O Expected Outcomes/Goals: Wound to improve Fu 3-5 days Date of Service: Feb 02, 2025 Billing Provider: NORBERT ORTEGA MD Common Visit Codes: [id number] INP/OBS CARE(HIGH) JAYNE MEADOWS RESIDENT Feb 02, 2025 16:31 EROS ALCALA RESIDENT Feb 02, 2025 20:18 NORBERT ORTEGA MD Feb 02, 2025 23:57
[2025-02-02] MEDS: Ensure HIGH Protein Vanilla 8oz Bottle PO SCH (18:00)
[2025-02-02] MEDS: ACETAMINOPHEN 325 MG TAB PO PRN (20:25)
[2025-02-02] MEDS: VANCOMYCIN 1GM/250ML KIT 250 ML IV SCH (20:26)
[2025-02-03] VITALS (8 sets, daily range): BP systolic 123–136; BP diastolic 65–85; PULSE 65–81; RESP 15–18; TEMP 97.3–98.1; O2SAT 91–100
[2025-02-03 08:11] LABS: Anion Gap 9 (5-15); Carbon Dioxide 27 mmol/L (20-31); Chloride 98 mmol/L (98-107); Potassium 4.5 mmol/L (3.5-5.1)
[2025-02-03 08:12] LABS: Hematocrit 25.5 % (41.0-53.0); Hemoglobin 8.7 g/dL (13.5-17.5); Mean Corpuscular Hemoglobin 32.0 pg (28.0-32.0); Mean Corpuscular Volume 93.7 fL (80.0-100.0); Nucleated Red Blood Cells % 0.1 %
[2025-02-03 08:17] LABS: BUN/Creatinine Ratio 23.3 (10.0-20.0)
[2025-02-03 08:18] LABS: Blood Urea Nitrogen 34 mg/dL (9-23); Calcium 8.4 mg/dL (8.7-10.4); Glucose 72 mg/dL (74-106); Sodium 134 mmol/L (136-145)
--- NOTE | 2025-02-03 15:20 | DVHPN2 ---
Subjective The patient is seen and examined at bedside. No complaint today. Reviewed: Care Plan, H&P, Labs, Medications, Previous Orders, Radiology Changes from previous H/P or p: No Changes Eyes: No Pain, No Vision change, No Conjunctivae inflammation, No Eyelid inflammation, No Other, No Redness ENT: No Ear pain, No Ear discharge, No Nose pain, No Nose discharge, No Nose congestion, No Mouth pain, No Mouth swelling, No Throat pain, No Throat swelling, No Other Cardiovascular: No Chest Pain, No Palpitations, No Orthopnea, No Paroxysmal Noc. Dyspnea, No Edema, No Lt Headedness, No Other Respiratory: No Cough, No Dry, No Shortness of breath, No SOB with excertion, No Wheezing, No Hemoptysis, No Pleuritic Pain, No Sputum, No Other Gastrointestinal: No Nausea, No Vomiting, No Abdominal Pain, No Diarrhea, No Constipation, No Melena, No Hematochezia, No Other Genitourinary: No Dysuria, No Frequency, No Incontinence, No Hematuria, No Retention, No Other Musculoskeletal: No other, No neck pain, No shoulder pain, No arm pain, No back pain, No hand pain; leg pain (left bka ); No foot pain Objective Vitals Vital Signs Date Time Temp Pulse Resp B/P (MAP) Pulse Ox O2 Delivery O2 Flow Rate FiO2 02/03/25 13:12 65 18 126/70 02/03/25 12:49 97.6 94 97.6 02/03/25 08:00 Nasal Cannula* 3 32 Intake/Output Intake and Output 02/03/25 07:00 Intake Total 2080 ml Output Total 2050 ml Balance 30 ml Intake Oral 1780 ml IV Total 300 ml Output Urine Total 2050 ml General Appearance: Alert, Cooperative, No acute distress HEENT: Atraumatic, PERRLA, EOMI, Mucous membr. moist/pink Neck: Supple Lungs: Clear to auscultation, Normal air movement Cardiovascular: Regular rate, Normal S1, Normal S2, No murmurs, Gallops, Rubs Abdomen: Normal bowel sounds, Soft, No tenderness Neuro: Cranial nerves 3-12 NL Psych/Mental Status: Mental status NL Medications Current Medications Medications Dose Ordered Sig/Margo Route Start Time Stop Time Status Last Admin Dose Admin Aspirin 81 mg QAM PO 02/02/25 07:00 02/03/25 06:17 81 MG Nifedipine 30 mg DAILY PO 02/02/25 10:00 02/03/25 09:10 30 MG Tamsulosin HCl 0.4 mg HS PO 02/01/25 22:00 02/02/25 21:55 0.4 MG Atorvastatin Calcium 80 mg HS PO 02/01/25 22:00 02/02/25 21:55 80 MG Ondansetron HCl 4 mg Q4HP PRN IV 02/01/25 17:30 Docusate Sodium 100 mg BIDPRN PRN PO 02/01/25 17:30 Morphine Sulfate 2 mg Q4HPRN PRN IV 02/01/25 17:30 02/03/25 12:42 2 MG Enoxaparin Sodium 40 mg DAILY SC 02/01/25 17:30 02/03/25 09:09 40 MG Nitroglycerin 0.4 mg Q5MINP PRN SL 02/01/25 17:30 Furosemide 40 mg BIDD IV 02/01/25 18:00 02/03/25 06:17 40 MG Vancomycin HCl 0 ml @ 0 mls/hr UD IV 02/01/25 17:30 Cefepime HCl 50 ml @ 12.5 mls/hr Q12HR IV 02/02/25 10:00 02/03/25 09:09 12.5 MLS/HR Ergocalciferol 50,000 unit Q7D PO 02/02/25 14:15 02/02/25 14:44 50,000 UNIT Acetaminophen 650 mg Q6HP PRN PO 02/02/25 17:00 02/02/25 20:25 650 MG Enteral Nutritional Formula 240 ml TIDWM PO 02/02/25 18:00 02/03/25 12:00 240 ML Vancomycin HCl 250 ml @ 200 mls/hr Q24H IV 02/02/25 20:00 02/02/25 20:26 200 MLS/HR Laboratory Results Laboratory Tests 02/03/25 06:22 Chemistry Test 02/03/25 06:22 Calcium Level 8.4 mg/dL (8.7-10.4) L Urinalysis Test 02/01/25 21:00 Urine Color Light-yellow (Yellow) Urine Clarity Clear (Clear) Urine pH 6.0 (5.0-9.0) Urine Specific [place] 1.009 (1.001-1.035) Urine Protein Trace (Negative) H Urine Ketones Negative (Negative) Urine Blood Negative /uL (Negative) Urine Nitrite Negative (Negative) Urine Bilirubin Negative (Negative) Urine Urobilinogen Normal mg/dL (Negative) Urine Leukocyte Esterase Negative /uL (Negative) Urine RBC <1 /hpf (0 - 3) Urine Microscopic WBC < 1 /HPF (0-3) Urine Squamous Epithelial Cells None seen /hpf (<5) Urine Bacteria None seen /hpf (None Seen) Urine Creatinine 27.52 mg/dL (30.0-125.0) L Urine Protein/Creatinine Ratio 1.19 Urine Sodium 64 mmol/L (40-220) Urine Glucose Normal mg/dL (Normal) Urine Total Protein 32.8 mg/dL (1-14) H Microbiology Microbiology Date/Time Source Procedure Growth Status 02/02/25 13:10 Blood Blood Culture - Preliminary NO GROWTH AFTER 24 HOURS OF INCUBATION. Resulted 02/01/25 23:45 Leg Gram Stain - Final Resulted 02/01/25 23:45 Leg Wound Culture - Preliminary Resulted Labs and/or images reviewed: Labs reviewed by me Assessment/Plan Assessment/Plan # acute RLE stump infection # possible acute cellulitis of left stump # history of right below-knee amputation # history of left above-knee amputation - x-ray showed Below-knee amputation. No acute fracture identified. No retained radiopaque foreign body. - venous Doppler showed No evidence of deep vein thrombosis. - ordered wound consult, pending - wound cultures, pending - patient started on IV vancomycin, cefepime - both legs are elevated - given morphine 2 mg for pain #acute hypoxic resp failure # Acute on chronic CHF, HFrEF, NYHA- 3 #Pul edema # Uncontrolled hypertension - troponins negative - held lisinopril - strict I&Os - previous echo showed EF of 15% on 11/05/2024 - # Acute JEREMÍAS on CKD 3a # anemia likely d/t ckd - strict I&Os - IV fluids given -fena? # vitamin-D deficiency - vitamin-D 42586 units per week given # hyperlipidemia - continue atorvastatin #obesity PPD PPX: Not indicated DVT PPX: Lovenox Plan discussed with: Patient Date of Service: Feb 03, 2025 Billing Provider: NORBERT ORTEGA MD Common Visit Codes: [id number] INP/OBS CARE(HIGH) NORBERT ORTEGA MD Feb 03, 2025 15:20
[2025-02-04] VITALS (7 sets, daily range): BP systolic 117–133; BP diastolic 68–83; PULSE 62–83; RESP 17–19; TEMP 97.1–97.7; O2SAT 93–100
[2025-02-04 08:08] LABS: Hematocrit 25.5 % (41.0-53.0); Hemoglobin 8.8 g/dL (13.5-17.5); Mean Corpuscular Hemoglobin 32.2 pg (28.0-32.0); Mean Corpuscular Volume 93.7 fL (80.0-100.0); Nucleated Red Blood Cells % 0.1 %
--- NOTE | 2025-02-04 16:06 | DVHPNRES ---
Progress Note Date Seen: Feb 04, 2025 Resident Creating Document: JAYNE MEADOWS RESIDENT Has the PT tested + for MRSA If YES, has PT been informed?: Yes Medical Necessity Reason Pt with a Central, PICC or Fol: No Subjective Review of Systems Patient is a 59-year-old male with past medical history of HFrEF EF15%, type 2 diabetes mellitus, hypertension, hyperlipidemia, has left BKA and right AKA. Patient came to the ED with chief complaint of bilateral leg swelling, a blister on the left stump, which is draining fluid since 1 month. The blister on the right stump was present since 1 week,states he had some pain and redness around the blister. Patient has been in rehab since 4 months in [facility]. Patient was recently admitted in this facility on October 2024 for Sepsis secondary to bilateral lower extremity cellulitis., and was discharged with vanc and Zosyn for 2 weeks. Wound consult was placed. past surgical history: CABG surgery in [place], S/P PCI with 2 stents. Family history: reviewed, noncontributory personal history: Patient denies smoking, alcohol or any drug use. pcp- Dr. Ferreira 02/02/2025 Patient seen at bedside. Patient is alert x3, in no distress, complains of mild shortness of breath, mild pain in his left leg stump with watery drainage which soaks up his bed since 1 month, he has bilateral leg swelling but more on the right leg, patient states that the blister has been present for 1 week and is painful. Patient is on room air and does not use home oxygen. ESR was elevated, chest x-ray shows Probable pulmonary edema. An underlying pneumonia in the right lower lung zone can not be excluded. Venous Doppler shows No evidence of deep vein thrombosis. X-ray tibia/ fibula showed Below-knee amputation. No acute fracture identified. No retained radiopaque foreign body. Patient had vitamin-D deficiency, was supplemented vitamin-D 5000 units per week. Patient was started on IV vancomycin , cefepime, furosemide 40 mg b.i.d. 02/04/25 patient seen at bedside. Patient is alert x3, in no acute distress, patient still complains of mild shortness of breath, is on 3 L oxygen, is coughing, he still complains of bilateral leg swelling and discharge from the right stump. He also states that he has not had a bowel movement since 2 days. Wound culture came back positive for Enterococcus faecalis and IV vancomycin was changed to IV Zyvox 600 mg. Objective vital signs Vital Sign Date Time Temp Pulse Resp B/P (MAP) Pulse Ox O2 Delivery O2 Flow Rate FiO2 02/04/25 13:00 97.7 75 19 132/76 (94) 100 97.7 02/04/25 08:00 Nasal Cannula* 3 32 Total Intake and Output 02/03/25 02/03/25 02/04/25 15:00 23:00 07:00 Intake Total 600 ml 240 ml 800 ml Output Total 600 ml 650 ml Balance 600 ml -360 ml 150 ml medications Current Medications Medications Dose Ordered Sig/Margo Route Start Time Stop Time Status Last Admin Dose Admin Aspirin 81 mg QAM PO 02/02/25 07:00 02/04/25 07:00 81 MG Nifedipine 30 mg DAILY PO 02/02/25 10:00 02/04/25 08:42 30 MG Tamsulosin HCl 0.4 mg HS PO 02/01/25 22:00 02/03/25 21:19 0.4 MG Atorvastatin Calcium 80 mg HS PO 02/01/25 22:00 02/03/25 21:19 80 MG Ondansetron HCl 4 mg Q4HP PRN IV 02/01/25 17:30 Docusate Sodium 100 mg BIDPRN PRN PO 02/01/25 17:30 Morphine Sulfate 2 mg Q4HPRN PRN IV 02/01/25 17:30 02/03/25 23:45 2 MG Enoxaparin Sodium 40 mg DAILY SC 02/01/25 17:30 02/04/25 08:40 40 MG Nitroglycerin 0.4 mg Q5MINP PRN SL 02/01/25 17:30 Furosemide 40 mg BIDD IV 02/01/25 18:00 02/04/25 07:01 40 MG Cefepime HCl 50 ml @ 12.5 mls/hr Q12HR IV 02/02/25 10:00 02/04/25 08:40 12.5 MLS/HR Ergocalciferol 50,000 unit Q7D PO 02/02/25 14:15 02/02/25 14:44 50,000 UNIT Acetaminophen 650 mg Q6HP PRN PO 02/02/25 17:00 02/02/25 20:25 650 MG Enteral Nutritional Formula 240 ml TIDWM PO 02/02/25 18:00 02/04/25 11:16 240 ML Linezolid 300 ml @ 150 mls/hr Q12HR IV 02/04/25 22:00 UNV Examination General: Patient alert and oriented in person, place and time. Patient following commands. HEENT: Normocephalic, atraumatic, moist mucous membranes Respiratory/pulmonary: Fine Crackles present in right side Cardiovascular: Normal heart sounds S1 and S2 with no associated murmurs Abdomen: Abdomen nondistended, there is no pain to palpation in any of the abdominal quadrants, no palpable masses. Extremities: Right BKA, left AKA, 2+ bilateral lower extremity pitting edema, with discharge from right stump Peripheral Pulses: 3+ Radial (R). 3+ Radial (L). 3+ Dorsalis pedis (R). 3+ Dorsalis pedis(L) Skin: No rashes or pruritus, there is no sacral edema present at this time. Neurological: Intact cranial nerves with no focal neurologic deficits laboratory and microbiology Laboratory Tests 02/04/25 06:50 02/03/25 06:22 Test 02/03/25 06:22 Range/Units Serum Glucose 72 L 74-106 mg/dL Microbiology Date/Time Source Procedure Growth Status 02/02/25 13:10 Blood Blood Culture - Preliminary NO GROWTH AFTER 48 HOURS OF INCUBATION. Resulted 02/01/25 23:45 Leg Gram Stain - Final Complete 02/01/25 23:45 Wound Culture - Final Enterococcus faecalis Complete Labs and/or images reviewed: Labs reviewed by me, Image(s) reviewed by me Problem List/Assessment/Plan Problem List/Assessment/Plan # acute RLE stump infection # possible acute cellulitis of left stump # history of right below-knee amputation # history of left above-knee amputation - x-ray showed Below-knee amputation. No acute fracture identified. No retained radiopaque foreign body. - venous Doppler showed No evidence of deep vein thrombosis. - ordered wound consult done - wound cultures done and shows Enterococcus faecalis - patient starting on Zyvox 600 mg q.12, cefepime - patient stopped on IV vancomycin - both legs are elevated - given morphine 2 mg for pain #acute hypoxic resp failure # Acute on chronic CHF, HFrEF, NYHA- 3 # Pul edema # Uncontrolled hypertension - troponins negative - held lisinopril - strict I&Os - previous echo showed EF of 15% on 11/05/2024 - # Acute JEREMÍAS on CKD 3a # anemia likely d/t ckd - strict I&Os - IV fluids given -FeNA- 2.6% # vitamin-D deficiency - vitamin-D 99283 units per week given # hyperlipidemia - continue atorvastatin #obesity- BMI-36.7 PPD PPX: Not indicated DVT PPX: Lovenox Goals of care addressed with the patient for more than 27 minutes: Full code status Case discussed with Dr. Silva , patient and nurse Plan discussed with: Patient, Other (Rn) My Orders My Orders Orders - JAYNE MEADOWS Procedure Category Date Status Time Linezolid 600mg/300ml PHA 02/04/25 Logged (Zyvox) 22:00 Dietary Evaluation Review Comments: Nutrition Recommendation 1) Ensure high protein 240ml BID 2) Kofi 1 pk BID 3) Monitor PO intake, lab values, weight trend, and I/O Expected Outcomes/Goals: Wound to improve Fu 3-5 days Date of Service: Feb 04, 2025 Billing Provider: NORBERT SILVA MD Common Visit Codes: [id number] INP/OBS CARE(HIGH) JAYNE MEADOWS RESIDENT Feb 04, 2025 16:06 NORBERT SILVA MD Feb 05, 2025 10:08
[2025-02-04] MEDS: LINEZOLID 600MG/300ML 300 ML IV SCH (21:48)
[2025-02-05] VITALS (8 sets, daily range): BP systolic 125–137; BP diastolic 67–88; PULSE 19–85; RESP 16–82; TEMP 97.3–98.1; O2SAT 94–100
[2025-02-05 08:07] LABS: Potassium 4.6 mmol/L (3.5-5.1)
[2025-02-05 08:08] LABS: Anion Gap 9 (5-15); Carbon Dioxide 27 mmol/L (20-31)
[2025-02-05 08:13] LABS: BUN/Creatinine Ratio 24.0 (10.0-20.0)
[2025-02-05 08:14] LABS: Blood Urea Nitrogen 36 mg/dL (9-23); Calcium 8.5 mg/dL (8.7-10.4); Chloride 97 mmol/L (98-107); Glucose 72 mg/dL (74-106); Sodium 133 mmol/L (136-145)
--- NOTE | 2025-02-05 14:02 | DVH ---
EXAM: US LEFT LOWER EXTREMITY ULTRASOUN DATE OF SERVICE: 02/05/2025 01:36 PM ORDERING PHYSICIAN: JAYNE MEADOWS RESIDENT REASON FOR EXAM: R/O LEG ABSCESS TECHNIQUE: 20 images medial aspect left lower extremity in the thigh COMPARISON: XY L TIB FIB XRAY on DOS: 02/01/25, US BILAT LOWER DVT on DOS: 02/01/25, US BILAT LOWER DVT on DOS: 11/06/24 FINDINGS: Subcutaneous edema. No drainable fluid collections IMPRESSION: 1. Subcutaneous edema 2. No drainable fluid collections
[2025-02-05 14:05] LABS: Base Excess 3.8 mmol/L (-2.0-3.0)
[2025-02-05] MEDS: FUROSEMIDE 40 MG/4 ML VIAL IV SCH (16:17)
--- NOTE | 2025-02-05 17:42 | DVHPNRES ---
Progress Note Date Seen: Feb 05, 2025 Resident Creating Document: JAYNE MEADOWS RESIDENT Has the PT tested + for MRSA If YES, has PT been informed?: Yes Medical Necessity Reason Pt with a Central, PICC or Fol: No Subjective Review of Systems Patient is a 59-year-old male with past medical history of HFrEF EF15%, type 2 diabetes mellitus, hypertension, hyperlipidemia, has left BKA and right AKA. Patient came to the ED with chief complaint of bilateral leg swelling, a blister on the left stump, which is draining fluid since 1 month. The blister on the right stump was present since 1 week,states he had some pain and redness around the blister. Patient has been in rehab since 4 months in [facility]. Patient was recently admitted in this facility on October 2024 for Sepsis secondary to bilateral lower extremity cellulitis., and was discharged with vanc and Zosyn for 2 weeks. Wound consult was placed. past surgical history: CABG surgery in [place], S/P PCI with 2 stents. Family history: reviewed, noncontributory personal history: Patient denies smoking, alcohol or any drug use. pcp- Dr. Ferreira 02/02/2025 Patient seen at bedside. Patient is alert x3, in no distress, complains of mild shortness of breath, mild pain in his left leg stump with watery drainage which soaks up his bed since 1 month, he has bilateral leg swelling but more on the right leg, patient states that the blister has been present for 1 week and is painful. Patient is on room air and does not use home oxygen. ESR was elevated, chest x-ray shows Probable pulmonary edema. An underlying pneumonia in the right lower lung zone can not be excluded. Venous Doppler shows No evidence of deep vein thrombosis. X-ray tibia/ fibula showed Below-knee amputation. No acute fracture identified. No retained radiopaque foreign body. Patient had vitamin-D deficiency, was supplemented vitamin-D 5000 units per week. Patient was started on IV vancomycin , cefepime, furosemide 40 mg b.i.d. 02/04/25 patient seen at bedside. Patient is alert x3, in no acute distress, patient still complains of mild shortness of breath, is on 3 L oxygen, is coughing, he still complains of bilateral leg swelling and discharge from the right stump. He also states that he has not had a bowel movement since 2 days. Wound culture came back positive for Enterococcus faecalis and IV vancomycin was changed to IV Zyvox 600 mg. 02/05/25 Patient seen at bedside. Patient is alert x3, no acute distress, complains of mild shortness of breath, is still on 3 L oxygen. The still discharge coming from his right stump. furosemide was increased to 40 mg IV t.i.d. social service was consulted for resuming SNF for placement. Extremity ultrasound showed subcutaneous edema. ABG was done. Objective vital signs Vital Sign Date Time Temp Pulse Resp B/P (MAP) Pulse Ox O2 Delivery O2 Flow Rate FiO2 02/05/25 16:59 98.1 81 18 137/88 (104) 95 98.1 02/05/25 08:00 Nasal Cannula* 3 32 Total Intake and Output 02/04/25 02/04/25 02/05/25 15:00 23:00 07:00 Intake Total 600 ml 650 ml Output Total 300 ml 750 ml Balance 300 ml -100 ml medications Current Medications Medications Dose Ordered Sig/Margo Route Start Time Stop Time Status Last Admin Dose Admin Aspirin 81 mg QAM PO 02/02/25 07:00 02/05/25 06:32 81 MG Nifedipine 30 mg DAILY PO 02/02/25 10:00 02/05/25 09:41 30 MG Tamsulosin HCl 0.4 mg HS PO 02/01/25 22:00 02/04/25 21:49 0.4 MG Atorvastatin Calcium 80 mg HS PO 02/01/25 22:00 02/04/25 21:49 80 MG Ondansetron HCl 4 mg Q4HP PRN IV 02/01/25 17:30 Docusate Sodium 100 mg BIDPRN PRN PO 02/01/25 17:30 Morphine Sulfate 2 mg Q4HPRN PRN IV 02/01/25 17:30 02/03/25 23:45 2 MG Enoxaparin Sodium 40 mg DAILY SC 02/01/25 17:30 02/05/25 09:42 40 MG Nitroglycerin 0.4 mg Q5MINP PRN SL 02/01/25 17:30 Cefepime HCl 50 ml @ 12.5 mls/hr Q12HR IV 02/02/25 10:00 02/05/25 09:42 12.5 MLS/HR Ergocalciferol 50,000 unit Q7D PO 02/02/25 14:15 02/02/25 14:44 50,000 UNIT Acetaminophen 650 mg Q6HP PRN PO 02/02/25 17:00 02/02/25 20:25 650 MG Enteral Nutritional Formula 240 ml TIDWM PO 02/02/25 18:00 02/05/25 12:08 240 ML Linezolid 300 ml @ 150 mls/hr Q12HR IV 02/04/25 22:00 02/05/25 09:42 150 MLS/HR Furosemide 40 mg TID IV 02/05/25 15:00 02/05/25 16:17 40 MG Examination General: Patient alert and oriented in person, place and time. Patient following commands. HEENT: Normocephalic, atraumatic, moist mucous membranes Respiratory/pulmonary: Rales heard on Auscultation, Cardiovascular: Normal heart sounds S1 and S2 with no associated murmurs Abdomen: Abdomen nondistended, there is no pain to palpation in any of the abdominal quadrants, no palpable masses. Abdominal swelling Extremities: Right BKA, left AKA, 2+ bilateral lower extremity pitting edema, with discharge from right stump, Scrotal swelling Peripheral Pulses: 3+ Radial (R). 3+ Radial (L). 3+ Dorsalis pedis (R). 3+ Dorsalis pedis(L) Skin: No rashes or pruritus, there is no sacral edema present at this time. Neurological: Intact cranial nerves with no focal neurologic deficits laboratory and microbiology Laboratory Tests 02/05/25 05:59 02/04/25 06:50 Test 02/05/25 05:59 Range/Units Serum Glucose 72 L 74-106 mg/dL Microbiology Date/Time Source Procedure Growth Status 02/02/25 13:10 Blood Blood Culture - Preliminary NO GROWTH AFTER 72 HOURS OF INCUBATION. Resulted 02/01/25 23:45 Leg Gram Stain - Final Complete 02/01/25 23:45 Wound Culture - Final Enterococcus faecalis Complete Problem List/Assessment/Plan Problem List/Assessment/Plan # acute RLE stump infection # possible acute cellulitis of left stump # history of right below-knee amputation # history of left above-knee amputation - x-ray showed Below-knee amputation. No acute fracture identified. No retained radiopaque foreign body. - venous Doppler showed No evidence of deep vein thrombosis. - ordered wound consult done - wound cultures done and shows Enterococcus faecalis - patient starting on Zyvox 600 mg q.12, cefepime - patient stopped on IV vancomycin - both legs are elevated - given morphine 2 mg for pain #acute hypoxic resp failure # Acute on chronic CHF, HFrEF, NYHA- 3 # Pul edema # Uncontrolled hypertension - troponins negative - held lisinopril - strict I&Os - previous echo showed EF of 15% on 11/05/2024 - # Acute JEREMÍAS on CKD 3a # anemia likely d/t ckd - strict I&Os - IV fluids given -FeNA- 2.6% # vitamin-D deficiency - vitamin-D 11755 units per week given # hyperlipidemia - continue atorvastatin #obesity- BMI-36.7 PPD PPX: Not indicated DVT PPX: Lovenox Goals of care addressed with the patient for more than 27 minutes: Full code status Case discussed with Dr. Silva , patient and nurse Plan discussed with: Patient My Orders My Orders Orders - JAYNE MEADOWS RESIDENT Procedure Category Date Status Time * Deputy Program Manager CONS 02/05/25 Transmitted Consult Chest Xray 1 View XY 02/06/25 Verified 04:00 Complete Blood Count LAB 02/06/25 Verified 04:00 Basic Metabolic Panel LAB 02/06/25 Verified 04:00 Dietary Evaluation Review Comments: Nutrition Recommendation 1) Ensure high protein 240ml BID 2) Kofi 1 pk BID 3) Monitor PO intake, lab values, weight trend, and I/O Expected Outcomes/Goals: Wound to improve Fu 3-5 days Date of Service: Feb 05, 2025 Billing Provider: JO BRINK MD Common Visit Codes: [id number] INP/OBS CARE(HIGH) JAYNE MEADOWS Feb 05, 2025 17:42 JO BRINK MD Feb 07, 2025 00:29
[2025-02-06 01:00] VITALS: BP 137/88; PULSE 88; RESP 16; TEMP 97.5; O2SAT 94
[2025-02-06 04:33] VITALS: BP 143/83; PULSE 75; RESP 15; TEMP 97.3; O2SAT 100
[2025-02-06 07:25] LABS: Hematocrit 25.6 % (41.0-53.0); Hemoglobin 9.0 g/dL (13.5-17.5); Mean Corpuscular Hemoglobin 32.6 pg (28.0-32.0); Mean Corpuscular Volume 93.0 fL (80.0-100.0); Nucleated Red Blood Cells % 0.1 %
[2025-02-06 07:30] VITALS: PULSE 79; O2SAT 100
[2025-02-06 07:35] LABS: Anion Gap 7 (5-15); Carbon Dioxide 29 mmol/L (20-31); Potassium 4.3 mmol/L (3.5-5.1)
[2025-02-06 07:41] LABS: BUN/Creatinine Ratio 24.8 (10.0-20.0); Glucose 76 mg/dL (74-106)
--- NOTE | 2025-02-06 07:42 | DVH ---
CHEST RADIOGRAPH Indication: congestion, CHF Technique: Single frontal view of the chest was obtained COMPARISON: XY CHEST PORTABLE on DOS: 02/01/25, XY CHEST PORTABLE on DOS: 11/04/24 FINDINGS: Lines and Tubes: None Lungs: Stable appearing moderate to large right and small left pleural effusions. Moderate diffuse in creased prominence of the pulmonary vasculature. No definite consolidation. No pneumothorax. Cardiomediastinal contours: Moderately obscured by pleural effusions. Status post median sternotomy. Bones: Unremarkable IMPRESSION: 1. Stable appearing moderate to large right and small left pleural effusions and diffuse increased pr ominence of the pulmonary vasculature.
[2025-02-06 07:43] LABS: Blood Urea Nitrogen 39 mg/dL (9-23); Calcium 8.6 mg/dL (8.7-10.4); Chloride 95 mmol/L (98-107); Sodium 131 mmol/L (136-145)
[2025-02-06 09:00] VITALS: BP 142/76; PULSE 80; RESP 17; TEMP 97.6; O2SAT 96
[2025-02-06] MEDS: FUROSEMIDE 40 MG/4 ML VIAL IV SCH (12:43)
[2025-02-06] MEDS: PANTOPRAZOLE 40 MG/10 ML VIAL INJ IV SCH (12:44)
[2025-02-06 13:00] VITALS: BP 131/89; PULSE 63; RESP 18; TEMP 97.5; O2SAT 96
--- NOTE | 2025-02-06 18:28 | DVHPNRES ---
Progress Note Date Seen: Feb 06, 2025 Resident Creating Document: JAYNE MEADOWS RESIDENT Has the PT tested + for MRSA If YES, has PT been informed?: Yes Medical Necessity Reason Pt with a Central, PICC or Fol: No Subjective Review of Systems Patient is a 59-year-old male with past medical history of HFrEF EF15%, type 2 diabetes mellitus, hypertension, hyperlipidemia, has left BKA and right AKA. Patient came to the ED with chief complaint of bilateral leg swelling, a blister on the left stump, which is draining fluid since 1 month. The blister on the right stump was present since 1 week,states he had some pain and redness around the blister. Patient has been in rehab since 4 months in [facility]. Patient was recently admitted in this facility on October 2024 for Sepsis secondary to bilateral lower extremity cellulitis., and was discharged with vanc and Zosyn for 2 weeks. Wound consult was placed. past surgical history: CABG surgery in [place], S/P PCI with 2 stents. Family history: reviewed, noncontributory personal history: Patient denies smoking, alcohol or any drug use. pcp- Dr. Ferreira 02/02/2025 Patient seen at bedside. Patient is alert x3, in no distress, complains of mild shortness of breath, mild pain in his left leg stump with watery drainage which soaks up his bed since 1 month, he has bilateral leg swelling but more on the right leg, patient states that the blister has been present for 1 week and is painful. Patient is on room air and does not use home oxygen. ESR was elevated, chest x-ray shows Probable pulmonary edema. An underlying pneumonia in the right lower lung zone can not be excluded. Venous Doppler shows No evidence of deep vein thrombosis. X-ray tibia/ fibula showed Below-knee amputation. No acute fracture identified. No retained radiopaque foreign body. Patient had vitamin-D deficiency, was supplemented vitamin-D 5000 units per week. Patient was started on IV vancomycin , cefepime, furosemide 40 mg b.i.d. 02/04/25 patient seen at bedside. Patient is alert x3, in no acute distress, patient still complains of mild shortness of breath, is on 3 L oxygen, is coughing, he still complains of bilateral leg swelling and discharge from the right stump. He also states that he has not had a bowel movement since 2 days. Wound culture came back positive for Enterococcus faecalis and IV vancomycin was changed to IV Zyvox 600 mg. 02/05/25 Patient seen at bedside. Patient is alert x3, no acute distress, complains of mild shortness of breath, is still on 3 L oxygen. The still discharge coming from his right stump. furosemide was increased to 40 mg IV t.i.d. social service was consulted for resuming SNF for placement. Extremity ultrasound showed subcutaneous edema. ABG was done. 02/06/25 Patient seen at bedside. Patient is alert x3, in no acute distress, complains of his right leg the drainage, mild shortness of breath is still on 3 L oxygen. Furosemide was increased to 4 times a day and social service was consulted for home health with PT. Pleural was done with removal of 800 mL of fluid. Pleural fluid was sent to the lab for LDH, WBC, culture, protein. Patient is stable chest x-ray was ordered, Pending. Objective vital signs Vital Sign Date Time Temp Pulse Resp B/P (MAP) Pulse Ox O2 Delivery O2 Flow Rate FiO2 02/06/25 13:00 97.5 63 18 131/89 (103) 96 97.5 02/06/25 07:30 Nasal Cannula* 2 28 Total Intake and Output 02/05/25 02/05/25 02/06/25 15:00 23:00 07:00 Intake Total 700 ml 750 ml 700 ml Output Total 800 ml 1600 ml Balance 700 ml -50 ml -900 ml medications Current Medications Medications Dose Ordered Sig/Margo Route Start Time Stop Time Status Last Admin Dose Admin Aspirin 81 mg QAM PO 02/02/25 07:00 02/06/25 06:05 81 MG Nifedipine 30 mg DAILY PO 02/02/25 10:00 02/06/25 09:33 30 MG Tamsulosin HCl 0.4 mg HS PO 02/01/25 22:00 02/05/25 23:48 0.4 MG Atorvastatin Calcium 80 mg HS PO 02/01/25 22:00 02/05/25 23:50 80 MG Ondansetron HCl 4 mg Q4HP PRN IV 02/01/25 17:30 Docusate Sodium 100 mg BIDPRN PRN PO 02/01/25 17:30 Morphine Sulfate 2 mg Q4HPRN PRN IV 02/01/25 17:30 02/03/25 23:45 2 MG Enoxaparin Sodium 40 mg DAILY SC 02/01/25 17:30 02/06/25 09:32 40 MG Nitroglycerin 0.4 mg Q5MINP PRN SL 02/01/25 17:30 Ergocalciferol 50,000 unit Q7D PO 02/02/25 14:15 02/02/25 14:44 50,000 UNIT Acetaminophen 650 mg Q6HP PRN PO 02/02/25 17:00 02/02/25 20:25 650 MG Enteral Nutritional Formula 240 ml TIDWM PO 02/02/25 18:00 02/06/25 12:00 240 ML Linezolid 300 ml @ 150 mls/hr Q12HR IV 02/04/25 22:00 02/06/25 09:32 150 MLS/HR Pantoprazole Sodium 40 mg DAILY IV 02/06/25 10:00 02/06/25 12:44 40 MG Furosemide 60 mg TID IV 02/06/25 14:00 02/06/25 12:43 60 MG Examination General: Patient alert and oriented in person, place and time. Patient following commands. HEENT: Normocephalic, atraumatic, moist mucous membranes Respiratory/pulmonary: Rales heard on Auscultation, Cardiovascular: Normal heart sounds S1 and S2 with no associated murmurs Abdomen: Abdomen nondistended, there is no pain to palpation in any of the abdominal quadrants, no palpable masses. Abdominal swelling Extremities: Right BKA, left AKA, 2+ bilateral lower extremity pitting edema, with discharge from right stump, Scrotal swelling Peripheral Pulses: 3+ Radial (R). 3+ Radial (L). 3+ Dorsalis pedis (R). 3+ Dorsalis pedis(L) Skin: No rashes or pruritus, there is no sacral edema present at this time. Neurological: Intact cranial nerves with no focal neurologic deficits laboratory and microbiology Laboratory Tests 02/06/25 06:30 Test 02/06/25 06:30 Range/Units Serum Glucose 76 74-106 mg/dL Microbiology Date/Time Source Procedure Growth Status 02/02/25 13:10 Blood Blood Culture - Preliminary NO GROWTH AFTER 72 HOURS OF INCUBATION. Resulted 02/01/25 23:45 Leg Gram Stain - Final Complete 02/01/25 23:45 Wound Culture - Final Enterococcus faecalis Complete Problem List/Assessment/Plan Problem List/Assessment/Plan # acute RLE stump infection # possible acute cellulitis of left stump # history of right below-knee amputation # history of left above-knee amputation - x-ray showed Below-knee amputation. No acute fracture identified. No retained radiopaque foreign body. - venous Doppler showed No evidence of deep vein thrombosis. - ordered wound consult done - wound cultures done and shows Enterococcus faecalis - patient starting on Zyvox 600 mg q.12, cefepime - patient stopped on IV vancomycin - both legs are elevated - given morphine 2 mg for pain #acute hypoxic resp failure # Acute on chronic CHF, HFrEF, NYHA- 3 # Pul edema # Uncontrolled hypertension - troponins negative - held lisinopril - strict I&Os - previous echo showed EF of 15% on 11/05/2024 - pleural tap was done with 800 mL fluid removed - pleural fluid protein, WBC, culture, LDH was ordered # Acute JEREMÍAS on CKD 3a # anemia likely d/t ckd - strict I&Os - IV fluids given -FeNA- 2.6% # vitamin-D deficiency - vitamin-D 08214 units per week given # hyperlipidemia - continue atorvastatin #obesity- BMI-36.7 PPD PPX: Not indicated DVT PPX: Lovenox Goals of care addressed with the patient for more than 27 minutes: Full code status Case discussed with Dr. Flores, patient and nurse Plan discussed with: Patient My Orders My Orders Orders - JAYNE MEADOWS RESIDENT Procedure Category Date Status Time * Vaccinator CONS 02/06/25 Transmitted Consult Protein, Body Fluid LAB 02/06/25 In Process 18:03 Lactate LAB 02/06/25 In Process Dehydrogenase, Fluid 18:03 Body Fluids, Diff. LAB 02/06/25 In Process Cell Count 18:03 Body Fluid Culture W/ ENRIKE 02/06/25 In Process GS 18:03 Chest Xray 1 View XY 02/06/25 Logged 18:08 Dietary Evaluation Review Comments: Nutrition Recommendation 1) Ensure high protein 240ml BID 2) Kofi 1 pk BID 3) Monitor PO intake, lab values, weight trend, and I/O Expected Outcomes/Goals: Wound to improve Fu 3-5 days Date of Service: Feb 06, 2025 Billing Provider: JO BRINK MD Common Visit Codes: [id number] INP/OBS CARE(HIGH) JAYNE MEADOWS Feb 06, 2025 18:28 JO BRINK MD Feb 07, 2025 01:30
[2025-02-06 20:00] VITALS: PULSE 75; RESP 18; O2SAT 97
--- NOTE | 2025-02-06 21:37 | DVH ---
CHEST RADIOGRAPH Indication: status post pleural tap Technique: Single frontal view of the chest was obtained Comparison: XY CHEST XRAY 1 VIEW on DOS: 02/06/25, XY CHEST PORTABLE on DOS: 02/01/25, XY CHEST PORTABL E on DOS: 11/04/24 FINDINGS: Lines and Tubes: None Lungs: Right lower lung zone opacification with obscuration of the hemidiaphragm. Blunting of the lef t costophrenic angle. No pneumothorax. Cardiomediastinal contours: Evaluation of the Heart size due to Right lower lung zone opacity. [place]lin e sternotomy wires surgical clips are noted consistent with prior history of CABG. Bones: No acute osseous abnormality. IMPRESSION: Moderate right-sided pleural effusion with associated atelectasis / pneumonia ; improved from prior i maging. Trace left-sided pleural effusion with associated atelectasis.
[2025-02-07] VITALS (9 sets, daily range): BP systolic 130–149; BP diastolic 62–89; PULSE 77–98; RESP 16–18; TEMP 97.3–97.8; O2SAT 91–100
[2025-02-07 08:50] LABS: Hematocrit 26.7 % (41.0-53.0); Hemoglobin 9.1 g/dL (13.5-17.5); Mean Corpuscular Hemoglobin 32.0 pg (28.0-32.0); Mean Corpuscular Volume 93.6 fL (80.0-100.0); Nucleated Red Blood Cells % 0.1 %
[2025-02-07 08:58] LABS: Anion Gap 10 (5-15); Carbon Dioxide 30 mmol/L (20-31); Potassium 3.8 mmol/L (3.5-5.1)
[2025-02-07 09:04] LABS: BUN/Creatinine Ratio 26.5 (10.0-20.0); Glucose 74 mg/dL (74-106)
[2025-02-07 09:09] LABS: Blood Urea Nitrogen 43 mg/dL (9-23); Calcium 8.5 mg/dL (8.7-10.4); Chloride 93 mmol/L (98-107); Sodium 133 mmol/L (136-145)
--- NOTE | 2025-02-07 09:10 | DVHPNRES ---
Progress Note Date Seen: Feb 07, 2025 Resident Creating Document: JAYNE MEADOWS RESIDENT Has the PT tested + for MRSA If YES, has PT been informed?: Yes Medical Necessity Reason Pt with a Central, PICC or Fol: No Subjective Review of Systems Patient is a 59-year-old male with past medical history of HFrEF EF15%, type 2 diabetes mellitus, hypertension, hyperlipidemia, has left BKA and right AKA. Patient came to the ED with chief complaint of bilateral leg swelling, a blister on the left stump, which is draining fluid since 1 month. The blister on the right stump was present since 1 week,states he had some pain and redness around the blister. Patient has been in rehab since 4 months in [facility]. Patient was recently admitted in this facility on October 2024 for Sepsis secondary to bilateral lower extremity cellulitis., and was discharged with vanc and Zosyn for 2 weeks. Wound consult was placed. past surgical history: CABG surgery in [place], S/P PCI with 2 stents. Family history: reviewed, noncontributory personal history: Patient denies smoking, alcohol or any drug use. pcp- Dr. Ferreira 02/02/2025 Patient seen at bedside. Patient is alert x3, in no distress, complains of mild shortness of breath, mild pain in his left leg stump with watery drainage which soaks up his bed since 1 month, he has bilateral leg swelling but more on the right leg, patient states that the blister has been present for 1 week and is painful. Patient is on room air and does not use home oxygen. ESR was elevated, chest x-ray shows Probable pulmonary edema. An underlying pneumonia in the right lower lung zone can not be excluded. Venous Doppler shows No evidence of deep vein thrombosis. X-ray tibia/ fibula showed Below-knee amputation. No acute fracture identified. No retained radiopaque foreign body. Patient had vitamin-D deficiency, was supplemented vitamin-D 5000 units per week. Patient was started on IV vancomycin , cefepime, furosemide 40 mg b.i.d. 02/04/25 patient seen at bedside. Patient is alert x3, in no acute distress, patient still complains of mild shortness of breath, is on 3 L oxygen, is coughing, he still complains of bilateral leg swelling and discharge from the right stump. He also states that he has not had a bowel movement since 2 days. Wound culture came back positive for Enterococcus faecalis and IV vancomycin was changed to IV Zyvox 600 mg. 02/05/25 Patient seen at bedside. Patient is alert x3, no acute distress, complains of mild shortness of breath, is still on 3 L oxygen. The still discharge coming from his right stump. furosemide was increased to 40 mg IV t.i.d. social service was consulted for resuming SNF for placement. Extremity ultrasound showed subcutaneous edema. ABG was done. 02/06/25 Patient seen at bedside. Patient is alert x3, in no acute distress, complains of his right leg the drainage, mild shortness of breath is still on 3 L oxygen. Furosemide was increased to 4 times a day and social service was consulted for home health with PT. Pleural was done with removal of 800 mL of fluid. Pleural fluid was sent to the lab for LDH, WBC, culture, protein. Patient is stable chest x-ray was ordered, Pending. 02/07/25 patient seen at bedside. patient is alert x3, in no acute distress, does not complain of any chest pain or in the insertion site. patient furosemide was increased to 60mg TID. Repeat chest xray showed Moderate right-sided pleural effusion with associated atelectasis / pneumonia ; improved from prior imaging. Trace left-sided pleural effusion with associated atelectasis. pleural fluid Shows WBC of 168 ,RBC 28, PMN 20, . patient is to be discharged with home with home health with PT. Objective vital signs Vital Sign Date Time Temp Pulse Resp B/P (MAP) Pulse Ox O2 Delivery O2 Flow Rate FiO2 02/07/25 07:42 100 Nasal Cannula* 2 28 02/07/25 06:03 149/89 02/07/25 05:00 97.3 79 17 97.3 Total Intake and Output 02/06/25 02/06/25 02/07/25 15:00 23:00 07:00 Intake Total 237 ml 725 ml 557 ml Output Total 840 ml 1625 ml 2100 ml Balance -603 ml -900 ml -1543 ml medications Current Medications Medications Dose Ordered Sig/Margo Route Start Time Stop Time Status Last Admin Dose Admin Aspirin 81 mg QAM PO 02/02/25 07:00 02/07/25 06:03 81 MG Nifedipine 30 mg DAILY PO 02/02/25 10:00 02/06/25 09:33 30 MG Tamsulosin HCl 0.4 mg HS PO 02/01/25 22:00 02/06/25 21:39 0.4 MG Atorvastatin Calcium 80 mg HS PO 02/01/25 22:00 02/06/25 21:40 80 MG Ondansetron HCl 4 mg Q4HP PRN IV 02/01/25 17:30 Docusate Sodium 100 mg BIDPRN PRN PO 02/01/25 17:30 Morphine Sulfate 2 mg Q4HPRN PRN IV 02/01/25 17:30 02/03/25 23:45 2 MG Enoxaparin Sodium 40 mg DAILY SC 02/01/25 17:30 02/06/25 09:32 40 MG Nitroglycerin 0.4 mg Q5MINP PRN SL 02/01/25 17:30 Ergocalciferol 50,000 unit Q7D PO 02/02/25 14:15 02/02/25 14:44 50,000 UNIT Acetaminophen 650 mg Q6HP PRN PO 02/02/25 17:00 02/02/25 20:25 650 MG Enteral Nutritional Formula 240 ml TIDWM PO 02/02/25 18:00 02/07/25 08:20 240 ML Linezolid 300 ml @ 150 mls/hr Q12HR IV 02/04/25 22:00 02/06/25 21:44 150 MLS/HR Pantoprazole Sodium 40 mg DAILY IV 02/06/25 10:00 02/06/25 12:44 40 MG Furosemide 60 mg TID IV 02/06/25 14:00 02/07/25 06:03 60 MG Examination General: Patient alert and oriented in person, place and time. Patient following commands. HEENT: Normocephalic, atraumatic, moist mucous membranes Respiratory/pulmonary: Rales heard on Auscultation, Cardiovascular: Normal heart sounds S1 and S2 with no associated murmurs Abdomen: Abdomen nondistended, there is no pain to palpation in any of the abdominal quadrants, no palpable masses. Abdominal swelling Extremities: Right BKA, left AKA, 2+ bilateral lower extremity pitting edema, with discharge from right stump, Scrotal swelling Peripheral Pulses: 3+ Radial (R). 3+ Radial (L). 3+ Dorsalis pedis (R). 3+ Dorsalis pedis(L) Skin: No rashes or pruritus, there is no sacral edema present at this time. Neurological: Intact cranial nerves with no focal neurologic deficits laboratory and microbiology Laboratory Tests 02/07/25 08:21 Test 02/07/25 08:21 Range/Units Serum Glucose Pending Microbiology Date/Time Source Procedure Growth Status 02/02/25 13:10 Blood Blood Culture - Preliminary NO GROWTH AFTER 72 HOURS OF INCUBATION. Resulted 02/01/25 23:45 Leg Gram Stain - Final Complete 02/01/25 23:45 Wound Culture - Final Enterococcus faecalis Complete Labs and/or images reviewed: Labs reviewed by me, Image(s) reviewed by me Problem List/Assessment/Plan Problem List/Assessment/Plan # acute RLE stump infection # possible acute cellulitis of left stump # history of right below-knee amputation # history of left above-knee amputation - x-ray showed Below-knee amputation. No acute fracture identified. No retained radiopaque foreign body. - venous Doppler showed No evidence of deep vein thrombosis. - ordered wound consult done - wound cultures done and shows Enterococcus faecalis - patient starting on Zyvox 600 mg q.12, cefepime - patient stopped on IV vancomycin - both legs are elevated - given morphine 2 mg for pain #acute hypoxic resp failure # Acute on chronic CHF, HFrEF, NYHA- 3 # Pul edema # Uncontrolled hypertension - troponins negative - held lisinopril - strict I&Os - previous echo showed EF of 15% on 11/05/2024 - pleural tap was done with 800 mL fluid removed - pleural fluid protein, WBC, culture, LDH was ordered # Acute JEREMÍAS on CKD 3a # anemia likely d/t ckd - strict I&Os - IV fluids given -FeNA- 2.6% # vitamin-D deficiency - vitamin-D 96632 units per week given # anemia of chronic disease # hyperlipidemia - continue atorvastatin #obesity- BMI-36.7 PPD PPX: Not indicated DVT PPX: Lovenox Goals of care addressed with the patient for more than 27 minutes: Full code status Case discussed with Dr. 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 02/06/25 Transmitted Consult Protein, Body Fluid LAB 02/06/25 In Process 18:03 Lactate LAB 02/06/25 In Process Dehydrogenase, Fluid 18:03 Body Fluid Culture W/ ENRIKE 02/06/25 In Process GS 18:03 Chest Xray 1 View XY 02/06/25 Resulted 18:08 Basic Metabolic Panel LAB 02/07/25 In Process 04:00 Discontinue Tele SOLO 02/07/25 In Process 06:57 Lactate Dehydrogenase LAB 02/07/25 Transmitted 09:08 Dietary Evaluation Review Comments: Nutrition Recommendation 1) Ensure high protein 240ml BID 2) Kofi 1 pk BID 3) Monitor PO intake, lab values, weight trend, and I/O Expected Outcomes/Goals: Wound to improve Fu 3-5 days Date of Service: Feb 07, 2025 Billing Provider: JO BRINK MD Common Visit Codes: [id number] INP/OBS CARE(HIGH) JAYNE MEADOWS RESIDENT Feb 07, 2025 09:10 JO BRINK MD Feb 11, 2025 16:49
[2025-02-08] VITALS (8 sets, daily range): BP systolic 111–145; BP diastolic 60–85; PULSE 65–84; RESP 15–20; TEMP 97–97.9; O2SAT 93–100
[2025-02-08 08:14] LABS: Anion Gap 11 (5-15); Carbon Dioxide 30 mmol/L (20-31)
[2025-02-08 08:17] LABS: Hematocrit 27.5 % (41.0-53.0); Hemoglobin 9.1 g/dL (13.5-17.5); Mean Corpuscular Hemoglobin 30.8 pg (28.0-32.0); Mean Corpuscular Volume 93.0 fL (80.0-100.0); Nucleated Red Blood Cells % 0.4 %
[2025-02-08 08:20] LABS: BUN/Creatinine Ratio 25.3 (10.0-20.0); Glucose 75 mg/dL (74-106)
[2025-02-08 08:24] LABS: Blood Urea Nitrogen 42 mg/dL (9-23); Calcium 8.5 mg/dL (8.7-10.4); Chloride 93 mmol/L (98-107); Potassium 3.4 mmol/L (3.5-5.1); Sodium 134 mmol/L (136-145)
[2025-02-08] MEDS: POTASSIUM EFFERVESENT TAB 25 MEQ PO ONE (10:00)
[2025-02-08] MEDS: CARVEDILOL 3.125 MG TAB PO SCH (10:01)
[2025-02-08 14:07] LABS: LD, Body Fluid 46.0 IU/L (.)
[2025-02-08] MEDS: POTASSIUM CHL 10 Meq TABLET PO ONE (14:40)
--- NOTE | 2025-02-08 15:39 | DVHPNRES ---
Progress Note Date Seen: Feb 08, 2025 Resident Creating Document: JAYNE MEADOWS RESIDENT Has the PT tested + for MRSA If YES, has PT been informed?: Yes Medical Necessity Reason Pt with a Central, PICC or Fol: No Subjective Review of Systems Patient is a 59-year-old male with past medical history of HFrEF EF15%, type 2 diabetes mellitus, hypertension, hyperlipidemia, has left BKA and right AKA. Patient came to the ED with chief complaint of bilateral leg swelling, a blister on the left stump, which is draining fluid since 1 month. The blister on the right stump was present since 1 week,states he had some pain and redness around the blister. Patient has been in rehab since 4 months in [facility]. Patient was recently admitted in this facility on October 2024 for Sepsis secondary to bilateral lower extremity cellulitis., and was discharged with vanc and Zosyn for 2 weeks. Wound consult was placed. past surgical history: CABG surgery in [place], S/P PCI with 2 stents. Family history: reviewed, noncontributory personal history: Patient denies smoking, alcohol or any drug use. pcp- Dr. Ferreira 02/02/2025 Patient seen at bedside. Patient is alert x3, in no distress, complains of mild shortness of breath, mild pain in his left leg stump with watery drainage which soaks up his bed since 1 month, he has bilateral leg swelling but more on the right leg, patient states that the blister has been present for 1 week and is painful. Patient is on room air and does not use home oxygen. ESR was elevated, chest x-ray shows Probable pulmonary edema. An underlying pneumonia in the right lower lung zone can not be excluded. Venous Doppler shows No evidence of deep vein thrombosis. X-ray tibia/ fibula showed Below-knee amputation. No acute fracture identified. No retained radiopaque foreign body. Patient had vitamin-D deficiency, was supplemented vitamin-D 5000 units per week. Patient was started on IV vancomycin , cefepime, furosemide 40 mg b.i.d. 02/04/25 patient seen at bedside. Patient is alert x3, in no acute distress, patient still complains of mild shortness of breath, is on 3 L oxygen, is coughing, he still complains of bilateral leg swelling and discharge from the right stump. He also states that he has not had a bowel movement since 2 days. Wound culture came back positive for Enterococcus faecalis and IV vancomycin was changed to IV Zyvox 600 mg. 02/05/25 Patient seen at bedside. Patient is alert x3, no acute distress, complains of mild shortness of breath, is still on 3 L oxygen. The still discharge coming from his right stump. furosemide was increased to 40 mg IV t.i.d. social service was consulted for resuming SNF for placement. Extremity ultrasound showed subcutaneous edema. ABG was done. 02/06/25 Patient seen at bedside. Patient is alert x3, in no acute distress, complains of his right leg the drainage, mild shortness of breath is still on 3 L oxygen. Furosemide was increased to 4 times a day and social service was consulted for home health with PT. Pleural was done with removal of 800 mL of fluid. Pleural fluid was sent to the lab for LDH, WBC, culture, protein. Patient is stable chest x-ray was ordered, Pending. 02/07/25 patient seen at bedside. patient is alert x3, in no acute distress, does not complain of any chest pain or in the insertion site. patient furosemide was increased to 60mg TID. Repeat chest xray showed Moderate right-sided pleural effusion with associated atelectasis / pneumonia ; improved from prior imaging. Trace left-sided pleural effusion with associated atelectasis. pleural fluid Shows WBC of 168 ,RBC 28, PMN 20, . patient is to be discharged with home with home health with PT. 02/08/25 Patient seen at bedside. Patient is alert x3, has no new complaints, patinets output was 6800ml. patient was given Metolozone 5mg. Objective vital signs Vital Sign Date Time Temp Pulse Resp B/P (MAP) Pulse Ox O2 Delivery O2 Flow Rate FiO2 02/08/25 14:40 131/80 02/08/25 10:01 80 02/08/25 09:00 97.0 15 94 97.0 02/07/25 20:00 Room Air* 0 21 Total Intake and Output 02/07/25 02/07/25 02/08/25 15:00 23:00 07:00 Intake Total 300 ml 430 ml 300 ml Output Total 4500 ml 2300 ml Balance 300 ml -4070 ml -2000 ml medications Current Medications Medications Dose Ordered Sig/Margo Route Start Time Stop Time Status Last Admin Dose Admin Aspirin 81 mg QAM PO 02/02/25 07:00 02/08/25 06:35 81 MG Tamsulosin HCl 0.4 mg HS PO 02/01/25 22:00 02/07/25 21:49 0.4 MG Atorvastatin Calcium 80 mg HS PO 02/01/25 22:00 02/07/25 21:49 80 MG Ondansetron HCl 4 mg Q4HP PRN IV 02/01/25 17:30 Docusate Sodium 100 mg BIDPRN PRN PO 02/01/25 17:30 Morphine Sulfate 2 mg Q4HPRN PRN IV 02/01/25 17:30 02/03/25 23:45 2 MG Enoxaparin Sodium 40 mg DAILY SC 02/01/25 17:30 02/08/25 10:00 40 MG Nitroglycerin 0.4 mg Q5MINP PRN SL 02/01/25 17:30 Ergocalciferol 50,000 unit Q7D PO 02/02/25 14:15 02/02/25 14:44 50,000 UNIT Acetaminophen 650 mg Q6HP PRN PO 02/02/25 17:00 02/02/25 20:25 650 MG Enteral Nutritional Formula 240 ml TIDWM PO 02/02/25 18:00 02/08/25 12:00 240 ML Linezolid 300 ml @ 150 mls/hr Q12HR IV 02/04/25 22:00 02/08/25 09:44 150 MLS/HR Pantoprazole Sodium 40 mg DAILY IV 02/06/25 10:00 02/08/25 09:59 40 MG Furosemide 60 mg TID IV 02/06/25 14:00 02/08/25 14:43 60 MG Nifedipine 60 mg DAILY PO 02/08/25 10:00 02/08/25 10:02 60 MG Carvedilol 6.25 mg Q12HR PO 02/08/25 10:00 02/08/25 10:01 6.25 MG Examination General: Patient alert and oriented in person, place and time. Patient following commands. HEENT: Normocephalic, atraumatic, moist mucous membranes Respiratory/pulmonary: Rales heard on Auscultation on right side Cardiovascular: Normal heart sounds S1 and S2 with no associated murmurs Abdomen: Abdomen nondistended, there is no pain to palpation in any of the abdominal quadrants, no palpable masses. Abdominal swelling Extremities: Right BKA, left AKA, 2+ bilateral lower extremity pitting edema, with discharge from right stump, Scrotal swelling Peripheral Pulses: 3+ Radial (R). 3+ Radial (L). 3+ Dorsalis pedis (R). 3+ Dorsalis pedis(L) Skin: No rashes or pruritus, there is no sacral edema present at this time. Neurological: Intact cranial nerves with no focal neurologic deficits laboratory and microbiology Laboratory Tests 02/08/25 07:00 Test 02/08/25 07:00 Range/Units Serum Glucose 75 74-106 mg/dL Microbiology Date/Time Source Procedure Growth Status 02/06/25 17:50 Pleural Fluid Gram Stain - Final Resulted 02/06/25 17:50 Pleural Fluid Body Fluid Culture - Preliminary Resulted 02/02/25 13:10 Blood Blood Culture - Final NO GROWTH AFTER 5 DAYS OF INCUBATION. Complete 02/01/25 23:45 Leg Gram Stain - Final Complete 02/01/25 23:45 Wound Culture - Final Enterococcus faecalis Complete Labs and/or images reviewed: Labs reviewed by me, Image(s) reviewed by me Problem List/Assessment/Plan Problem List/Assessment/Plan # acute RLE stump infection # possible acute cellulitis of left stump # history of right below-knee amputation # history of left above-knee amputation - x-ray showed Below-knee amputation. No acute fracture identified. No retained radiopaque foreign body. - venous Doppler showed No evidence of deep vein thrombosis. - ordered wound consult done - wound cultures done and shows Enterococcus faecalis - patient starting on Zyvox 600 mg q.12, cefepime - patient stopped on IV vancomycin - both legs are elevated - Metolozone 5mg given - given morphine 2 mg for pain #acute hypoxic resp failure # Acute on chronic CHF, HFrEF, NYHA- 3 # Pul edema # Uncontrolled hypertension - troponins negative - held lisinopril - strict I&Os - previous echo showed EF of 15% on 11/05/2024 - pleural tap was done with 800 mL fluid removed - pleural fluid protein, WBC, culture, LDH was ordered # Acute JEREMÍAS on CKD 3a # anemia likely d/t ckd - strict I&Os - IV fluids given -FeNA- 2.6% # vitamin-D deficiency - vitamin-D 58274 units per week given #Hypokalemia - replated potassium # anemia of chronic disease # hyperlipidemia - continue atorvastatin #obesity- BMI-36.7 PPD PPX: Not indicated DVT PPX: Lovenox Goals of care addressed with the patient for more than 27 minutes: Full code status Case discussed with Dr. Flores, patient and nurse Plan discussed with: Patient, Other (RN) Dietary Evaluation Review Comments: Nutrition Recommendation 1) Ensure high protein 240ml BID 2) Kofi 1 pk BID 3) Monitor PO intake, lab values, weight trend, and I/O Expected Outcomes/Goals: Wound to improve Fu 3-5 days Date of Service: Feb 08, 2025 Billing Provider: JO BRINK MD Common Visit Codes: [id number] INP/OBS CARE(HIGH) AJYNE MEADOWS RESIDENT Feb 08, 2025 15:39 JO BRINK MD Feb 11, 2025 16:55
[2025-02-09] VITALS (8 sets, daily range): BP systolic 112–138; BP diastolic 62–68; PULSE 65–73; RESP 16–20; TEMP 98–98.2; O2SAT 95–100
[2025-02-09 07:52] LABS: Anion Gap 9 (5-15); Chloride 94 mmol/L (98-107); Potassium 3.4 mmol/L (3.5-5.1); Sodium 134 mmol/L (136-145)
[2025-02-09 07:53] LABS: Calcium 8.7 mg/dL (8.7-10.4); Carbon Dioxide 31 mmol/L (20-31)
[2025-02-09 07:57] LABS: BUN/Creatinine Ratio 21.1 (10.0-20.0); Glucose 79 mg/dL (74-106)
[2025-02-09 07:58] LABS: Magnesium 2.0 mg/dL (1.6-2.6)
[2025-02-09 08:00] LABS: Blood Urea Nitrogen 37 mg/dL (9-23)
--- NOTE | 2025-02-09 10:54 | DVHPNRES ---
Progress Note Date Seen: Feb 09, 2025 Resident Creating Document: JAYNE MEADOWS RESIDENT Has the PT tested + for MRSA If YES, has PT been informed?: Yes Medical Necessity Reason Pt with a Central, PICC or Fol: No Subjective Review of Systems Patient is a 59-year-old male with past medical history of HFrEF EF15%, type 2 diabetes mellitus, hypertension, hyperlipidemia, has left BKA and right AKA. Patient came to the ED with chief complaint of bilateral leg swelling, a blister on the left stump, which is draining fluid since 1 month. The blister on the right stump was present since 1 week,states he had some pain and redness around the blister. Patient has been in rehab since 4 months in [facility]. Patient was recently admitted in this facility on October 2024 for Sepsis secondary to bilateral lower extremity cellulitis., and was discharged with vanc and Zosyn for 2 weeks. Wound consult was placed. past surgical history: CABG surgery in [place], S/P PCI with 2 stents. Family history: reviewed, noncontributory personal history: Patient denies smoking, alcohol or any drug use. pcp- Dr. Ferreira 02/02/2025 Patient seen at bedside. Patient is alert x3, in no distress, complains of mild shortness of breath, mild pain in his left leg stump with watery drainage which soaks up his bed since 1 month, he has bilateral leg swelling but more on the right leg, patient states that the blister has been present for 1 week and is painful. Patient is on room air and does not use home oxygen. ESR was elevated, chest x-ray shows Probable pulmonary edema. An underlying pneumonia in the right lower lung zone can not be excluded. Venous Doppler shows No evidence of deep vein thrombosis. X-ray tibia/ fibula showed Below-knee amputation. No acute fracture identified. No retained radiopaque foreign body. Patient had vitamin-D deficiency, was supplemented vitamin-D 5000 units per week. Patient was started on IV vancomycin , cefepime, furosemide 40 mg b.i.d. 02/04/25 patient seen at bedside. Patient is alert x3, in no acute distress, patient still complains of mild shortness of breath, is on 3 L oxygen, is coughing, he still complains of bilateral leg swelling and discharge from the right stump. He also states that he has not had a bowel movement since 2 days. Wound culture came back positive for Enterococcus faecalis and IV vancomycin was changed to IV Zyvox 600 mg. 02/05/25 Patient seen at bedside. Patient is alert x3, no acute distress, complains of mild shortness of breath, is still on 3 L oxygen. The still discharge coming from his right stump. furosemide was increased to 40 mg IV t.i.d. social service was consulted for resuming SNF for placement. Extremity ultrasound showed subcutaneous edema. ABG was done. 02/06/25 Patient seen at bedside. Patient is alert x3, in no acute distress, complains of his right leg the drainage, mild shortness of breath is still on 3 L oxygen. Furosemide was increased to 4 times a day and social service was consulted for home health with PT. Pleural was done with removal of 800 mL of fluid. Pleural fluid was sent to the lab for LDH, WBC, culture, protein. Patient is stable chest x-ray was ordered, Pending. 02/07/25 patient seen at bedside. patient is alert x3, in no acute distress, does not complain of any chest pain or in the insertion site. patient furosemide was increased to 60mg TID. Repeat chest xray showed Moderate right-sided pleural effusion with associated atelectasis / pneumonia ; improved from prior imaging. Trace left-sided pleural effusion with associated atelectasis. pleural fluid Shows WBC of 168 ,RBC 28, PMN 20, . patient is to be discharged with home with home health with PT. 02/08/25 Patient seen at bedside. Patient is alert x3, has no new complaints, patinets output was 6800ml. patient was given Metolozone 5mg. 02/09/25 Patient seen at bedside. He has no new complaints, Nephrology was consulted due to increasing creatinine, and recommended furosemide has be decreased to 40mg B.i.d. potassium replaced. Wound care has been done. Objective vital signs Vital Sign Date Time Temp Pulse Resp B/P (MAP) Pulse Ox O2 Delivery O2 Flow Rate FiO2 02/09/25 09:27 71 138/65 02/09/25 08:46 98.0 16 96 98.0 02/08/25 20:00 Room Air* 0 21 Total Intake and Output 02/08/25 02/08/25 02/09/25 15:00 23:00 07:00 Intake Total 300 ml 400 ml Output Total 2175 ml 1100 ml Balance -1875 ml -700 ml medications Current Medications Medications Dose Ordered Sig/Margo Route Start Time Stop Time Status Last Admin Dose Admin Aspirin 81 mg QAM PO 02/02/25 07:00 02/09/25 06:05 81 MG Tamsulosin HCl 0.4 mg HS PO 02/01/25 22:00 02/08/25 21:59 0.4 MG Atorvastatin Calcium 80 mg HS PO 02/01/25 22:00 02/08/25 21:59 80 MG Ondansetron HCl 4 mg Q4HP PRN IV 02/01/25 17:30 Docusate Sodium 100 mg BIDPRN PRN PO 02/01/25 17:30 Morphine Sulfate 2 mg Q4HPRN PRN IV 02/01/25 17:30 02/03/25 23:45 2 MG Enoxaparin Sodium 40 mg DAILY SC 02/01/25 17:30 02/09/25 09:26 40 MG Nitroglycerin 0.4 mg Q5MINP PRN SL 02/01/25 17:30 Ergocalciferol 50,000 unit Q7D PO 02/02/25 14:15 02/02/25 14:44 50,000 UNIT Acetaminophen 650 mg Q6HP PRN PO 02/02/25 17:00 02/02/25 20:25 650 MG Enteral Nutritional Formula 240 ml TIDWM PO 02/02/25 18:00 02/09/25 09:04 240 ML Linezolid 300 ml @ 150 mls/hr Q12HR IV 02/04/25 22:00 02/09/25 09:25 150 MLS/HR Pantoprazole Sodium 40 mg DAILY IV 02/06/25 10:00 02/09/25 09:26 40 MG Furosemide 60 mg TID IV 02/06/25 14:00 02/09/25 05:22 60 MG Nifedipine 60 mg DAILY PO 02/08/25 10:00 02/09/25 09:27 60 MG Carvedilol 6.25 mg Q12HR PO 02/08/25 10:00 02/09/25 09:27 6.25 MG Examination General: Patient alert and oriented in person, place and time. Patient following commands. HEENT: Normocephalic, atraumatic, moist mucous membranes Respiratory/pulmonary: Rales heard on Auscultation on right side Cardiovascular: Normal heart sounds S1 and S2 with no associated murmurs Abdomen: Abdomen nondistended, there is no pain to palpation in any of the abdominal quadrants, no palpable masses. Extremities: Right BKA, left AKA, 2+ bilateral lower extremity pitting edema, with discharge from right stump, Scrotal swelling Peripheral Pulses: 3+ Radial (R). 3+ Radial (L). 3+ Dorsalis pedis (R). 3+ Dorsalis pedis(L) Skin: No rashes or pruritus, there is no sacral edema present at this time. Neurological: Intact cranial nerves with no focal neurologic deficits laboratory and microbiology Laboratory Tests 02/09/25 07:18 02/08/25 07:00 Test 02/09/25 07:18 Range/Units Serum Glucose 79 74-106 mg/dL Microbiology Date/Time Source Procedure Growth Status 02/06/25 17:50 Pleural Fluid Gram Stain - Final Resulted 02/06/25 17:50 Pleural Fluid Body Fluid Culture - Preliminary Resulted 02/02/25 13:10 Blood Blood Culture - Final NO GROWTH AFTER 5 DAYS OF INCUBATION. Complete 02/01/25 23:45 Leg Gram Stain - Final Complete 02/01/25 23:45 Wound Culture - Final Enterococcus faecalis Complete Problem List/Assessment/Plan Problem List/Assessment/Plan # acute RLE stump infection # possible acute cellulitis of left stump # history of right below-knee amputation # history of left above-knee amputation - x-ray showed Below-knee amputation. No acute fracture identified. No retained radiopaque foreign body. - venous Doppler showed No evidence of deep vein thrombosis. - ordered wound consult done - wound cultures done and shows Enterococcus faecalis - patient starting on Zyvox 600 mg q.12, cefepime - patient stopped on IV vancomycin - both legs are elevated - Metolozone 5mg given - given morphine 2 mg for pain #acute hypoxic resp failure # Acute on chronic CHF, HFrEF, NYHA- 3 # Pul edema # Uncontrolled hypertension - troponins negative - held lisinopril - strict I&Os - previous echo showed EF of 15% on 11/05/2024 - pleural tap was done with 800 mL fluid removed - pleural fluid protein, WBC, culture, LDH was ordered - furosemide 40mg b.i.d # Acute JEREMÍAS on CKD 3a # anemia likely d/t ckd - strict I&Os - IV fluids given -FeNA- 2.6% # vitamin-D deficiency - vitamin-D 83202 units per week given #Hypokalemia - replated potassium # anemia of chronic disease # hyperlipidemia - continue atorvastatin #obesity- BMI-36.7 PPD PPX: Not indicated DVT PPX: Lovenox Goals of care addressed with the patient for more than 27 minutes: Full code status Case discussed with Dr. Flores, patient and nurse Plan discussed with: Patient Dietary Evaluation Review Comments: Nutrition Recommendation 1) Ensure high protein 240ml BID 2) Kofi 1 pk BID 3) Monitor PO intake, lab values, weight trend, and I/O Expected Outcomes/Goals: Wound to improve Fu 3-5 days Date of Service: Feb 09, 2025 Billing Provider: JO BRINK MD Common Visit Codes: [id number] INP/OBS CARE(HIGH) JAYNE MEADOWS RESIDENT Feb 09, 2025 10:54 JO BRINK MD Feb 11, 2025 17:03
[2025-02-09] MEDS: POTASSIUM CHL 20 Meq TABLET PO ONE (11:51)
[2025-02-09] MEDS: POTASSIUM EFFERVESENT TAB 25 MEQ PO ONE (11:51)
--- NOTE | 2025-02-09 12:29 | DVHINCON2 ---
Date of service: Feb 09, [address] Neely Reason for Consultation Acute kidney injury History of Present Illness Patient is a 59-year-old male with past medical history significant for hypertension, diabetes mellitus type 2, peripheral arterial disease is admitted for infected right leg stump. On admission patient found to have elevated BUN creatinine nephrology is consulted for acute kidney injury Past Medical History CHF diabetes hypertension hyperlipidemia , chronic systolic Congestive heart failure Peripheral arterial disease Past Surgical History left BKA and right AKA Allergies: Coded Allergies: Penicillins (Verified Allergy, Unknown, 12/31/23) Home Meds Reported Medications Potassium Chloride (Klor-Con M20) 20 Meq Tab, 20 MEQ PO DAILY, TAB 02/01/25 Docusate Sodium (Colace) 100 Mg Cap, 1 CAP PO BID, #30 CAP 02/01/25 Acetaminophen (Tylenol) 325 Mg Tb, 325 MG PO QID, TAB 02/01/25 Acetaminophen (Tylenol) 325 Mg Cap, 325 MG PO 6XD, CAP 02/01/25 Levofloxacin Hemihydrate (LEVAQUIN 500 MG) 500 Mg Tab, 1 TAB PO DAILY, #7 TAB 02/01/25 Omeprazole (Gnp Omeprazole) 20 Mg Tab, 1 TAB PO DAILY, #90 TAB 1 Refill 02/01/25 Nifedipine (Nifedipine Er) 30 Mg Tab, 1 TAB PO DAILY for 90 Days, #90 11/06/24 Aspirin (Aspirin Low Dose) 81 Mg Tab, 1 TAB PO QAM for 90 Days, #90 11/06/24 Tamsulosin Hcl (Tamsulosin Hcl) 0.4 Mg Cap, 1 CAP PO HS for 90 Days, #90 11/06/24 Metoclopramide HCl (Metoclopramide Hydrochlor) 10 Mg Tab, 1 TAB PO TID for 30 Days, #90 11/06/24 Atorvastatin Calcium (ATORVASTATIN CALCIUM) 80 Mg Tab, 1 TAB PO DAILY for 90 Days, #90 11/06/24 Lisinopril (Lisinopril) 20 Mg Tab, 1 TAB PO DAILY for 90 Days, #90 11/06/24 Current Medications Current Medications Medications (Trade) Dose Ordered Sig/Margo Route PRN Reason Start Time Stop Time Status Last Admin Furosemide (Lasix Injection) 60 mg BID IV 02/09/25 22:00 UNV Family History: Diabetes mellitus G8 MOTHER FH: myocardial infarction G8 FATHER Review of Systems All 12 item review of systems reviewed with the patient nonsignificant except what is mentioned in the history of present illness H&P Exam Vital Signs/I&O Vital Sign Date Time Temp Pulse Resp B/P (MAP) Pulse Ox O2 Delivery O2 Flow Rate FiO2 02/09/25 11:18 100 127/68 02/09/25 08:46 98.0 16 96 98.0 02/08/25 20:00 Room Air* 0 21 Intake and Output 02/08/25 02/09/25 19:00 07:00 Intake Total 300 ml 400 ml Output Total 2175 ml 1100 ml Balance -1875 ml -700 ml Intake Oral 0 ml 100 ml IV Total 300 ml 300 ml Output Urine Total 2175 ml 1100 ml Physical Exam Patient is awake and alert Lungs clear to auscultation bilaterally Cardiac exam regular rate and rhythm GI soft nontender was normal Extremity right above knee amputation, left below-knee amputation Neuro nonfocal Labs/Diagnostic Data Labs/Diagnostic Data Laboratory Tests Test 02/09/25 07:18 02/08/25 07:00 02/07/25 08:21 02/06/25 17:50 Range/Units Sodium Level 134 L 134 L 133 L 136-145 mmol/L Potassium Level 3.4 L 3.4 L 3.8 3.5-5.1 mmol/L Chloride Level 94 L 93 L 93 L 98-107 mmol/L Carbon Dioxide Level 31 30 30 20-31 mmol/L Anion Gap 9 11 10 5-15 Blood Urea Nitrogen 37 H 42 H 43 H 9-23 mg/dL Creatinine 1.75 H 1.66 H 1.62 H 0.700-1.30 mg/dL Glomerular Filtration Rate Calc 44 47 48 >90 mL/min BUN/Creatinine Ratio 21.1 H 25.3 H 26.5 H 10.0-20.0 Serum Glucose 79 75 74 74-106 mg/dL Calcium Level 8.7 8.5 L 8.5 L 8.7-10.4 mg/dL Magnesium Level 2.0 1.6-2.6 mg/dL White Blood Count 5.1 4.8 4.4-10.8 10^3/uL Red Blood Count 2.96 L 2.86 L 4.5-5.90 10^6/uL Hemoglobin 9.1 L 9.1 L 13.5-17.5 g/dL Hematocrit 27.5 L 26.7 L 41.0-53.0 % Mean Corpuscular Volume 93.0 93.6 80.0-100.0 fL Mean Corpuscular Hemoglobin 30.8 32.0 28.0-32.0 pg Mean Corpuscular Hemoglobin Concent 33.1 34.2 32.0-36.0 g/dL Red Cell Distribution Width 15.9 H 16.0 H 11.8-14.3 % Platelet Count 201 199 140-450 10^3/uL Mean Platelet Volume 9.0 9.1 6.9-10.8 fL Neutrophils (%) (Auto) 64.0 67.2 37.0-80.0 % Lymphocytes (%) (Auto) 21.8 19.5 10.0-50.0 % Monocytes (%) (Auto) 10.6 9.9 0.0-12.0 % Eosinophils (%) (Auto) 3.0 2.7 0.0-7.0 % Basophils (%) (Auto) 0.6 0.7 0.0-2.0 % Neutrophils # (Auto) 3.3 3.2 1.6-8.6 10 ^3/uL Lymphocytes # (Auto) 1.1 0.9 0.4-5.4 10 ^3/uL Monocytes # (Auto) 0.5 0.5 0-1.3 10 ^3/uL Eosinophils # (Auto) 0.2 0.1 0-0.8 10 ^3/uL Basophils # (Auto) 0 0 0-0.2 10 ^3/uL Nucleated Red Blood Cells 0.4 0.1 % Lactate Dehydrogenase 134 120-246 U/L Body Fluid Source Pleural fluid Body Fluid WBC (Manual) 168 0-200 CUMM Body Fluid RBC (Manual) 28 0-2000 CUMM Body Fluid Mononuclear Cells 80 % Body Fluid Polymorphonuclear Cells 20 0-25 % Body Fluid Total Protein 2.1 . g/dL Body Fluid Lactate Dehydrogenase 46 . IU/L Test 02/06/25 06:30 02/05/25 13:59 02/05/25 05:59 02/04/25 20:20 Range/Units White Blood Count 4.7 4.4-10.8 10^3/uL Red Blood Count 2.75 L 4.5-5.90 10^6/uL Hemoglobin 9.0 L 13.5-17.5 g/dL Hematocrit 25.6 L 41.0-53.0 % Mean Corpuscular Volume 93.0 80.0-100.0 fL Mean Corpuscular Hemoglobin 32.6 H 28.0-32.0 pg Mean Corpuscular Hemoglobin Concent 35.0 32.0-36.0 g/dL Red Cell Distribution Width 16.0 H 11.8-14.3 % Platelet Count 205 140-450 10^3/uL Mean Platelet Volume 9.1 6.9-10.8 fL Neutrophils (%) (Auto) 61.0 37.0-80.0 % Lymphocytes (%) (Auto) 24.3 10.0-50.0 % Monocytes (%) (Auto) 10.0 0.0-12.0 % Eosinophils (%) (Auto) 3.8 0.0-7.0 % Basophils (%) (Auto) 0.9 0.0-2.0 % Neutrophils # (Auto) 2.8 1.6-8.6 10 ^3/uL Lymphocytes # (Auto) 1.1 0.4-5.4 10 ^3/uL Monocytes # (Auto) 0.5 0-1.3 10 ^3/uL Eosinophils # (Auto) 0.2 0-0.8 10 ^3/uL Basophils # (Auto) 0 0-0.2 10 ^3/uL Nucleated Red Blood Cells 0.1 % Sodium Level 131 L 133 L 136-145 mmol/L Potassium Level 4.3 4.6 3.5-5.1 mmol/L Chloride Level 95 L 97 L 98-107 mmol/L Carbon Dioxide Level 29 27 20-31 mmol/L Anion Gap 7 9 5-15 Blood Urea Nitrogen 39 H 36 H 9-23 mg/dL Creatinine 1.57 H 1.50 H 0.700-1.30 mg/dL Glomerular Filtration Rate Calc 50 53 >90 mL/min BUN/Creatinine Ratio 24.8 H 24.0 H 10.0-20.0 Serum Glucose 76 72 L 74-106 mg/dL Calcium Level 8.6 L 8.5 L 8.7-10.4 mg/dL Blood Gas Specimen Type Arterial Blood Gas Sample Site Left radial Blood Gas Patient Temperature 37.0 Arterial Blood Date Drawn [id number] Arterial Blood pH 7.467 H 7.350-7.450 Arterial Blood Partial Pressure CO2 39.3 35.0-48.0 mmHg Arterial Blood Partial Pressure O2 43.1 *L 83.0-108.0 mmHg Arterial Blood HCO3 27.8 21.0-28.0 mmol/L Arterial Blood Oxygen Saturation 77.3 *L 94.0-98.0 % Arterial Blood Base Excess 3.8 H -2.0-3.0 mmol/L Arterial Blood Oxyhemoglobin 76.8 L 94.0-98.0 % Arterial Blood Carboxyhemoglobin 0.2 L 0.5-1.5 % Arterial Blood Methemoglobin 0.4 0.0-1.5 % Unruly Test Yes Blood Gas Total Hemoglobin 9.30 L 13.5-17.5 g/dL Blood Gas Modality Room air FiO2 % 21.0 Blood Gas Critical Value Read Back Yes Blood Gas Notified Whom A mila Blood Gas Notified Time [id number] Blood Gas Notified By [employer] magdy koroma Vancomycin Level Trough 28.7 H 5-10 ug/mL Test 02/04/25 06:50 02/03/25 06:22 02/02/25 17:21 02/02/25 12:00 Range/Units White Blood Count 4.9 4.9 4.4-10.8 10^3/uL Red Blood Count 2.72 L 2.72 L 4.5-5.90 10^6/uL Hemoglobin 8.8 L 8.7 L 13.5-17.5 g/dL Hematocrit 25.5 L 25.5 L 41.0-53.0 % Mean Corpuscular Volume 93.7 93.7 80.0-100.0 fL Mean Corpuscular Hemoglobin 32.2 H 32.0 28.0-32.0 pg Mean Corpuscular Hemoglobin Concent 34.4 34.1 32.0-36.0 g/dL Red Cell Distribution Width 15.9 H 16.0 H 11.8-14.3 % Platelet Count 212 210 140-450 10^3/uL Mean Platelet Volume 9.1 9.1 6.9-10.8 fL Neutrophils (%) (Auto) 62.2 65.0 37.0-80.0 % Lymphocytes (%) (Auto) 22.0 20.6 10.0-50.0 % Monocytes (%) (Auto) 10.9 9.5 0.0-12.0 % Eosinophils (%) (Auto) 4.3 4.2 0.0-7.0 % Basophils (%) (Auto) 0.6 0.7 0.0-2.0 % Neutrophils # (Auto) 3.1 3.2 1.6-8.6 10 ^3/uL Lymphocytes # (Auto) 1.1 1.0 0.4-5.4 10 ^3/uL Monocytes # (Auto) 0.5 0.5 0-1.3 10 ^3/uL Eosinophils # (Auto) 0.2 0.2 0-0.8 10 ^3/uL Basophils # (Auto) 0 0 0-0.2 10 ^3/uL Nucleated Red Blood Cells 0.1 0.1 % Creatinine 1.47 H 1.46 H 0.700-1.30 mg/dL Glomerular Filtration Rate Calc 54 55 >90 mL/min Sodium Level 134 L 136-145 mmol/L Potassium Level 4.5 3.5-5.1 mmol/L Chloride Level 98 98-107 mmol/L Carbon Dioxide Level 27 20-31 mmol/L Anion Gap 9 5-15 Blood Urea Nitrogen 34 H 9-23 mg/dL BUN/Creatinine Ratio 23.3 H 10.0-20.0 Serum Glucose 72 L 74-106 mg/dL Calcium Level 8.4 L 8.7-10.4 mg/dL POC Glucose 87 100 70-106 mg/dl Test 02/02/25 11:41 02/02/25 06:07 02/02/25 05:51 02/01/25 21:29 Range/Units Vitamin B12 Level 182 L 211-911 pg/mL Vitamin D 25-Hydroxy 13.0 L 30.0-100 ng/mL Folic Acid 11.25 >5.38 ng/mL Free Thyroxine (T4) Calculated 1.01 0.89-1.76 ng/dL White Blood Count 5.9 4.4-10.8 10^3/uL Red Blood Count 2.82 L 4.5-5.90 10^6/uL Hemoglobin 9.1 #L 13.5-17.5 g/dL Hematocrit 26.4 #L 41.0-53.0 % Mean Corpuscular Volume 93.9 80.0-100.0 fL Mean Corpuscular Hemoglobin 32.2 H 28.0-32.0 pg Mean Corpuscular Hemoglobin Concent 34.2 32.0-36.0 g/dL Red Cell Distribution Width 16.3 H 11.8-14.3 % Platelet Count 219 140-450 10^3/uL Mean Platelet Volume 8.8 6.9-10.8 fL Neutrophils (%) (Auto) 67.1 37.0-80.0 % Lymphocytes (%) (Auto) 19.5 10.0-50.0 % Monocytes (%) (Auto) 10.9 0.0-12.0 % Eosinophils (%) (Auto) 1.8 0.0-7.0 % Basophils (%) (Auto) 0.7 0.0-2.0 % Neutrophils # (Auto) 3.9 1.6-8.6 10 ^3/uL Lymphocytes # (Auto) 1.1 0.4-5.4 10 ^3/uL Monocytes # (Auto) 0.6 0-1.3 10 ^3/uL Eosinophils # (Auto) 0.1 0-0.8 10 ^3/uL Basophils # (Auto) 0 0-0.2 10 ^3/uL Nucleated Red Blood Cells 0.2 % Reticulocyte Count (auto) 0.79 0.5-1.5 % Prothrombin Time 11.5 9.3-11.8 sec Prothrombin Time INR 1.09 0.9-1.15 Activated Partial Thromboplast Time 33.4 24.5-34.5 SEC Sodium Level 133 L 136-145 mmol/L Potassium Level 4.8 3.5-5.1 mmol/L Chloride Level 98 98-107 mmol/L Carbon Dioxide Level 26 20-31 mmol/L Anion Gap 9 5-15 Blood Urea Nitrogen 43 H 9-23 mg/dL Creatinine 1.48 H 0.700-1.30 mg/dL Glomerular Filtration Rate Calc 54 >90 mL/min BUN/Creatinine Ratio 29.1 H 10.0-20.0 Serum Glucose 87 74-106 mg/dL Hemoglobin A1c 5.1 <5.7 % A1C Calcium Level 8.1 L 8.7-10.4 mg/dL Phosphorus Level 3.3 2.4-5.1 mg/dL Magnesium Level 2.1 1.6-2.6 mg/dL Total Bilirubin 1.0 0.2-1.0 mg/dL Aspartate Amino Transferase (AST) 24 13-40 U/L Alanine Aminotransferase (ALT) 22 7-40 U/L Alkaline Phosphatase 463 H 46-116 U/L Total Protein 6.2 5.7-8.2 g/dL Albumin 3.1 L 3.2-4.8 g/dL Thyroid Stimulating Hormone (TSH) 11.61 H 0.55-4.78 uIU/mL Parathyroid Hormone (Intact) 84.7 H 18.4-80.1 pg/mL Random Vancomycin Level 15.2 H 5-10 ug/mL Plasma/Serum Blood Alcohol 4.6 <10 mg/dL POC Glucose 96 132 H 70-106 mg/dl Test 02/01/25 21:00 02/01/25 14:12 Range/Units Urine Color Light-yellow Yellow Urine Clarity Clear Clear Urine pH 6.0 5.0-9.0 Urine Specific [place]fant 1.009 1.001-1.035 Urine Protein Trace H Negative Urine Ketones Negative Negative Urine Blood Negative Negative /uL Urine Nitrite Negative Negative Urine Bilirubin Negative Negative Urine Urobilinogen Normal Negative mg/dL Urine Leukocyte Esterase Negative Negative /uL Urine RBC <1 0 - 3 /hpf Urine Microscopic WBC < 1 0-3 /HPF Urine Squamous Epithelial Cells None seen <5 /hpf Urine Bacteria None seen None Seen /hpf Urine Creatinine 27.52 L 30.0-125.0 mg/dL Urine Protein/Creatinine Ratio 1.19 Urine Sodium 64 40-220 mmol/L Urine Glucose Normal Normal mg/dL Urine Total Protein 32.8 H 1-14 mg/dL Urine Opiates Screen Neg NEGATIVE Urine Fentanyl Screen Neg NEGATIVE Urine Barbiturates Screen Neg NEGATIVE Urine Phencyclidine Screen Neg NEGATIVE Urine Amphetamines Screen Neg NEGATIVE Urine Benzodiazepines Screen Neg NEGATIVE Urine Cocaine Screen Neg NEGATIVE Urine Cannabinoids Screen Neg NEGATIVE White Blood Count 7.0 4.4-10.8 10^3/uL Red Blood Count 3.36 L 4.5-5.90 10^6/uL Hemoglobin 10.8 L 13.5-17.5 g/dL Hematocrit 31.3 L 41.0-53.0 % Mean Corpuscular Volume 93.1 80.0-100.0 fL Mean Corpuscular Hemoglobin 32.2 H 28.0-32.0 pg Mean Corpuscular Hemoglobin Concent 34.6 32.0-36.0 g/dL Red Cell Distribution Width 16.2 H 11.8-14.3 % Platelet Count 251 140-450 10^3/uL Mean Platelet Volume 8.6 6.9-10.8 fL Neutrophils (%) (Auto) 70.8 37.0-80.0 % Lymphocytes (%) (Auto) 18.1 10.0-50.0 % Monocytes (%) (Auto) 8.4 0.0-12.0 % Eosinophils (%) (Auto) 2.1 0.0-7.0 % Basophils (%) (Auto) 0.6 0.0-2.0 % Neutrophils # (Auto) 4.9 1.6-8.6 10 ^3/uL Lymphocytes # (Auto) 1.3 0.4-5.4 10 ^3/uL Monocytes # (Auto) 0.6 0-1.3 10 ^3/uL Eosinophils # (Auto) 0.1 0-0.8 10 ^3/uL Basophils # (Auto) 0 0-0.2 10 ^3/uL Nucleated Red Blood Cells 0.0 % Erythrocyte Sedimentation Rate 40 H 0-20 mm/hr Sodium Level 132 L 136-145 mmol/L Potassium Level 4.7 3.5-5.1 mmol/L Chloride Level 98 98-107 mmol/L Carbon Dioxide Level 27 20-31 mmol/L Anion Gap 7 5-15 Blood Urea Nitrogen 38 H 9-23 mg/dL Creatinine 1.49 H 0.700-1.30 mg/dL Glomerular Filtration Rate Calc 53 >90 mL/min BUN/Creatinine Ratio 25.5 H 10.0-20.0 Serum Glucose 128 H 74-106 mg/dL Lactic Acid Level 1.1 0.4-2.0 mmol/L Calcium Level 8.3 L 8.7-10.4 mg/dL Magnesium Level 1.9 1.6-2.6 mg/dL Total Bilirubin 0.7 0.2-1.0 mg/dL Aspartate Amino Transferase (AST) 36 13-40 U/L Alanine Aminotransferase (ALT) 28 7-40 U/L Alkaline Phosphatase 554 H 46-116 U/L Troponin I High Sensitivity 8 </=54 ng/L C-Reactive Protein High Sensitivity 1.63 H <1.0 mg/dL B-Type Natriuretic Peptide 2901.36 0-100 pg/mL Total Protein 6.9 5.7-8.2 g/dL Albumin 3.4 3.2-4.8 g/dL Microbiology Date/Time Source Procedure Growth Status 02/02/25 13:10 Blood Blood Culture - Final NO GROWTH AFTER 5 DAYS OF INCUBATION. Complete 02/01/25 23:45 Leg Gram Stain - Final Complete 02/01/25 23:45 Wound Culture - Final Enterococcus faecalis Complete Assessment Acute kidney injury superimposed Chronic Kidney Disease secondary hemodynamic mediated Vancomycin nephrotoxicity Right lower extremity stump cellulitis Congestive heart failure, ejection fraction 15% Hyponatremia due to excess H2O Diabetes mellitus type 2 Hypertension Peripheral arterial disease AFib Anemia of chronic kidney disease Recommendation Closely monitor fluid and electrolytes Avoid nephrotoxic medication Discontinue vancomycin Strict I&Os Insulin sliding scale Blood pressure control Furosemide 40 mg IV b.i.d. KCL replacement Cardiology consult IV antibiotics Wound care We will continue to follow Patient seen and examined by myself. I discussed my plan of care with the patient and primary nurse at the bedside I would like to thank Dr. Neely for the consult, will follow up Plan discussed with: Patient SUPRIYA SERRA MD Feb 09, 2025 12:29
[2025-02-09] MEDS: FUROSEMIDE 40 MG/4 ML VIAL IV SCH (17:46)
[2025-02-09] MEDS ORDERED: FUROSEMIDE 40 MG/4 ML VIAL IV SCH (22:00)
[2025-02-10] VITALS (8 sets, daily range): BP systolic 107–133; BP diastolic 47–92; PULSE 61–72; RESP 16–20; TEMP 97.3–98.1; O2SAT 95–100
[2025-02-10 07:16] LABS: Hematocrit 28.6 % (41.0-53.0); Hemoglobin 9.8 g/dL (13.5-17.5); Mean Corpuscular Hemoglobin 32.4 pg (28.0-32.0); Mean Corpuscular Volume 94.7 fL (80.0-100.0); Nucleated Red Blood Cells % 0.2 %
[2025-02-10 07:33] LABS: Potassium 4.0 mmol/L (3.5-5.1)
[2025-02-10 07:34] LABS: Anion Gap 12 (5-15); Calcium 8.6 mg/dL (8.7-10.4); Carbon Dioxide 29 mmol/L (20-31); Chloride 90 mmol/L (98-107); Sodium 131 mmol/L (136-145)
[2025-02-10 07:39] LABS: BUN/Creatinine Ratio 21.7 (10.0-20.0)
[2025-02-10 07:42] LABS: Blood Urea Nitrogen 40 mg/dL (9-23); Glucose 72 mg/dL (74-106)
--- NOTE | 2025-02-10 09:20 | DVHPNRES ---
Progress Note Date Seen: Feb 10, 2025 Resident Creating Document: JAYNE MEADOWS RESIDENT Has the PT tested + for MRSA If YES, has PT been informed?: Yes Medical Necessity Reason Pt with a Central, PICC or Fol: No Subjective Review of Systems Patient is a 59-year-old male with past medical history of HFrEF EF15%, type 2 diabetes mellitus, hypertension, hyperlipidemia, has left BKA and right AKA. Patient came to the ED with chief complaint of bilateral leg swelling, a blister on the left stump, which is draining fluid since 1 month. The blister on the right stump was present since 1 week,states he had some pain and redness around the blister. [facility] Patient was recently admitted in this facility on October 2024 for Sepsis secondary to bilateral lower extremity cellulitis., and was discharged with vanc and Zosyn for 2 weeks. Wound consult was placed. past surgical history: CABG surgery in [place], S/P PCI with 2 stents. Family history: reviewed, noncontributory personal history: Patient denies smoking, alcohol or any drug use. pcp- Dr. Ferreira 02/02/2025 Patient seen at bedside. Patient is alert x3, in no distress, complains of mild shortness of breath, mild pain in his left leg stump with watery drainage which soaks up his bed since 1 month, he has bilateral leg swelling but more on the right leg, patient states that the blister has been present for 1 week and is painful. Patient is on room air and does not use home oxygen. ESR was elevated, chest x-ray shows Probable pulmonary edema. An underlying pneumonia in the right lower lung zone can not be excluded. Venous Doppler shows No evidence of deep vein thrombosis. X-ray tibia/ fibula showed Below-knee amputation. No acute fracture identified. No retained radiopaque foreign body. Patient had vitamin-D deficiency, was supplemented vitamin-D 5000 units per week. Patient was started on IV vancomycin , cefepime, furosemide 40 mg b.i.d. 02/04/25 patient seen at bedside. Patient is alert x3, in no acute distress, patient still complains of mild shortness of breath, is on 3 L oxygen, is coughing, he still complains of bilateral leg swelling and discharge from the right stump. He also states that he has not had a bowel movement since 2 days. Wound culture came back positive for Enterococcus faecalis and IV vancomycin was changed to IV Zyvox 600 mg. 02/05/25 Patient seen at bedside. Patient is alert x3, no acute distress, complains of mild shortness of breath, is still on 3 L oxygen. The still discharge coming from his right stump. furosemide was increased to 40 mg IV t.i.d. social service was consulted for resuming SNF for placement. Extremity ultrasound showed subcutaneous edema. ABG was done. 02/06/25 Patient seen at bedside. Patient is alert x3, in no acute distress, complains of his right leg the drainage, mild shortness of breath is still on 3 L oxygen. Furosemide was increased to 4 times a day and social service was consulted for home health with PT. Pleural was done with removal of 800 mL of fluid. Pleural fluid was sent to the lab for LDH, WBC, culture, protein. Patient is stable chest x-ray was ordered, Pending. 02/07/25 patient seen at bedside. patient is alert x3, in no acute distress, does not complain of any chest pain or in the insertion site. patient furosemide was increased to 60mg TID. Repeat chest xray showed Moderate right-sided pleural effusion with associated atelectasis / pneumonia ; improved from prior imaging. Trace left-sided pleural effusion with associated atelectasis. pleural fluid Shows WBC of 168 ,RBC 28, PMN 20, . patient is to be discharged with home with home health with PT. 02/08/25 Patient seen at bedside. Patient is alert x3, has no new complaints, patinets output was 6800ml. patient was given Metolozone 5mg. 02/09/25 Patient seen at bedside. He has no new complaints, Nephrology was consulted due to increasing creatinine, and recommended furosemide has be decreased to 40mg B.i.d. potassium replaced. Wound care has been done. 02/10/25 Patient seen at bedside. Patient is alert x3, has no new complaints, patient is urine output was 3300 ml. Nephrology on board and recommended Furosemide 40 mg IV b.i.d., KCL replacement, cardiology consult. Objective vital signs Vital Sign Date Time Temp Pulse Resp B/P (MAP) Pulse Ox O2 Delivery O2 Flow Rate FiO2 02/10/25 06:29 131/65 02/10/25 05:18 98.1 67 20 96 98.1 02/09/25 20:00 Room Air* 0 21 Total Intake and Output 02/09/25 02/09/25 02/10/25 15:00 23:00 07:00 Intake Total 300 ml 700 ml 800 ml Output Total 1700 ml 1600 ml Balance 300 ml -1000 ml -800 ml medications Current Medications Medications Dose Ordered Sig/Margo Route Start Time Stop Time Status Last Admin Dose Admin Aspirin 81 mg QAM PO 02/02/25 07:00 02/10/25 06:29 81 MG Tamsulosin HCl 0.4 mg HS PO 02/01/25 22:00 02/09/25 21:22 0.4 MG Atorvastatin Calcium 80 mg HS PO 02/01/25 22:00 02/09/25 21:23 80 MG Ondansetron HCl 4 mg Q4HP PRN IV 02/01/25 17:30 Docusate Sodium 100 mg BIDPRN PRN PO 02/01/25 17:30 Morphine Sulfate 2 mg Q4HPRN PRN IV 02/01/25 17:30 02/03/25 23:45 2 MG Enoxaparin Sodium 40 mg DAILY SC 02/01/25 17:30 02/09/25 09:26 40 MG Nitroglycerin 0.4 mg Q5MINP PRN SL 02/01/25 17:30 Ergocalciferol 50,000 unit Q7D PO 02/02/25 14:15 02/02/25 14:44 50,000 UNIT Acetaminophen 650 mg Q6HP PRN PO 02/02/25 17:00 02/02/25 20:25 650 MG Enteral Nutritional Formula 240 ml TIDWM PO 02/02/25 18:00 02/09/25 17:30 240 ML Linezolid 300 ml @ 150 mls/hr Q12HR IV 02/04/25 22:00 02/09/25 21:23 150 MLS/HR Pantoprazole Sodium 40 mg DAILY IV 02/06/25 10:00 02/09/25 09:26 40 MG Nifedipine 60 mg DAILY PO 02/08/25 10:00 02/09/25 09:27 60 MG Carvedilol 6.25 mg Q12HR PO 02/08/25 10:00 02/09/25 21:23 6.25 MG Furosemide 40 mg BIDD IV 02/09/25 18:00 02/10/25 06:29 40 MG Examination General: Patient alert and oriented in person, place and time. Patient following commands. HEENT: Normocephalic, atraumatic, moist mucous membranes Respiratory/pulmonary: Rales heard on Auscultation on right side Cardiovascular: Normal heart sounds S1 and S2 with no associated murmurs Abdomen: Abdomen nondistended, there is no pain to palpation in any of the abdominal quadrants, no palpable masses. Extremities: Right BKA, left AKA, 2+ bilateral lower extremity pitting edema, with discharge from right stump, Scrotal swelling Peripheral Pulses: 3+ Radial (R). 3+ Radial (L). 3+ Dorsalis pedis (R). 3+ Dorsalis pedis(L) Skin: No rashes or pruritus, there is no sacral edema present at this time. Neurological: Intact cranial nerves with no focal neurologic deficits laboratory and microbiology Laboratory Tests 02/10/25 06:08 Test 02/10/25 06:08 Range/Units Serum Glucose 72 L 74-106 mg/dL Microbiology Date/Time Source Procedure Growth Status 02/06/25 17:50 Pleural Fluid Gram Stain - Final Resulted 02/06/25 17:50 Pleural Fluid Body Fluid Culture - Preliminary Resulted 02/02/25 13:10 Blood Blood Culture - Final NO GROWTH AFTER 5 DAYS OF INCUBATION. Complete 02/01/25 23:45 Leg Gram Stain - Final Complete 02/01/25 23:45 Wound Culture - Final Enterococcus faecalis Complete Labs and/or images reviewed: Labs reviewed by me, Image(s) reviewed by me Problem List/Assessment/Plan Problem List/Assessment/Plan # acute RLE stump infection # possible acute cellulitis of left stump # history of right below-knee amputation # history of left above-knee amputation - x-ray showed Below-knee amputation. No acute fracture identified. No retained radiopaque foreign body. - venous Doppler showed No evidence of deep vein thrombosis. - ordered wound consult done - wound cultures done and shows Enterococcus faecalis - patient starting on Zyvox 600 mg q.12, cefepime - patient stopped on IV vancomycin - both legs are elevated - Metolozone 5mg given - given morphine 2 mg for pain #acute hypoxic resp failure # Acute on chronic CHF, HFrEF, NYHA- 3 # Pul edema # Uncontrolled hypertension - troponins negative - held lisinopril - strict I&Os - previous echo showed EF of 15% on 11/05/2024 - pleural tap was done with 800 mL fluid removed - pleural fluid protein, WBC, culture, LDH was ordered - furosemide 40mg b.i.d # Acute JEREMÍAS on CKD 3a # anemia likely d/t ckd - strict I&Os - IV fluids given -FeNA- 2.6% # vitamin-D deficiency - vitamin-D 92495 units per week given #Hypokalemia - replated potassium # anemia of chronic disease # hyperlipidemia - continue atorvastatin #obesity- BMI-36.7 PPD PPX: Not indicated DVT PPX: Lovenox Goals of care addressed with the patient for more than 27 minutes: Full code status Case discussed with Dr. Pastrana , patient and nurse Plan discussed with: Patient Dietary Evaluation Review Comments: Nutrition Recommendation 1) Ensure high protein 240ml BID 2) Kofi 1 pk BID 3) Monitor PO intake, lab values, weight trend, and I/O Expected Outcomes/Goals: Wound to improve Fu 3-5 days Date of Service: Feb 10, 2025 Billing Provider: JO BRINK MD Common Visit Codes: 80475-[facility] INP/OBS CARE(HIGH) JAYNE MEADOWS Feb 10, 2025 09:19 JO BRINK MD Feb 11, 2025 17:07
--- NOTE | 2025-02-10 10:23 | DVHPN2 ---
Progress Note Date Seen: Feb 10, 2025 Has the PT tested + for MRSA If YES, has PT been informed?: Yes Medical Necessity Reason Pt with a Central, PICC or Fol: No Subjective Patient reports: No new complaints Other Systems: Patient seen and examined by myself today in follow-up Objective vital signs Vital Sign Date Time Temp Pulse Resp B/P (MAP) Pulse Ox O2 Delivery O2 Flow Rate FiO2 02/10/25 09:44 70 133/86 02/10/25 05:18 98.1 20 96 98.1 02/09/25 20:00 Room Air* 0 21 Total Intake and Output 02/09/25 02/09/25 02/10/25 14:59 22:59 06:59 Intake Total 300 ml 700 ml 800 ml Output Total 1700 ml 1600 ml Balance 300 ml -1000 ml -800 ml medications Current Medications Medications Dose Ordered Sig/Margo Route Start Time Stop Time Status Last Admin Dose Admin Aspirin 81 mg QAM PO 02/02/25 07:00 02/10/25 06:29 81 MG Tamsulosin HCl 0.4 mg HS PO 02/01/25 22:00 02/09/25 21:22 0.4 MG Atorvastatin Calcium 80 mg HS PO 02/01/25 22:00 02/09/25 21:23 80 MG Ondansetron HCl 4 mg Q4HP PRN IV 02/01/25 17:30 Docusate Sodium 100 mg BIDPRN PRN PO 02/01/25 17:30 Morphine Sulfate 2 mg Q4HPRN PRN IV 02/01/25 17:30 02/03/25 23:45 2 MG Enoxaparin Sodium 40 mg DAILY SC 02/01/25 17:30 02/10/25 09:45 40 MG Nitroglycerin 0.4 mg Q5MINP PRN SL 02/01/25 17:30 Ergocalciferol 50,000 unit Q7D PO 02/02/25 14:15 02/02/25 14:44 50,000 UNIT Acetaminophen 650 mg Q6HP PRN PO 02/02/25 17:00 02/02/25 20:25 650 MG Enteral Nutritional Formula 240 ml TIDWM PO 02/02/25 18:00 02/10/25 09:42 240 ML Linezolid 300 ml @ 150 mls/hr Q12HR IV 02/04/25 22:00 02/10/25 09:43 150 MLS/HR Pantoprazole Sodium 40 mg DAILY IV 02/06/25 10:00 02/10/25 09:45 40 MG Nifedipine 60 mg DAILY PO 02/08/25 10:00 02/10/25 09:44 60 MG Carvedilol 6.25 mg Q12HR PO 02/08/25 10:00 02/10/25 09:44 6.25 MG Furosemide 40 mg BIDD IV 02/09/25 18:00 02/10/25 06:29 40 MG Examination: LUNGS:Normal, CVS:Normal, MSK:Abnormal laboratory and microbiology Laboratory Tests 02/10/25 06:08 Test 02/10/25 06:08 Range/Units Serum Glucose 72 L 74-106 mg/dL Microbiology Date/Time Source Procedure Growth Status 02/06/25 17:50 Pleural Fluid Gram Stain - Final Resulted 02/06/25 17:50 Pleural Fluid Body Fluid Culture - Preliminary Resulted 02/02/25 13:10 Blood Blood Culture - Final NO GROWTH AFTER 5 DAYS OF INCUBATION. Complete 02/01/25 23:45 Leg Gram Stain - Final Complete 02/01/25 23:45 Wound Culture - Final Enterococcus faecalis Complete Problem List/Assessment/Plan Problem List/Assessment/Plan Acute kidney injury superimposed Chronic Kidney Disease secondary hemodynamic mediated, ATN, FeNa > 2% Vancomycin nephrotoxicity Right lower extremity stump cellulitis Congestive heart failure, ejection fraction 15% Hyponatremia due to excess H2O Diabetes mellitus type 2 Mild proteinuria due to underlying diabetic nephropathy Hypertension Peripheral arterial disease AFib Anemia of chronic kidney disease Recommendation Kidney function slightly worsened today Increased urine output Discontinue vancomycin Strict I&Os Insulin sliding scale Blood pressure control Furosemide 40 mg IV b.i.d. KCL replacement Cardiology consult IV antibiotics Wound care We will continue to follow Plan discussed with: Patient My Orders My Orders Orders - SUPRIYA SERRA MD Procedure Category Date Status Time Furosemide Injection PHA 02/09/25 In Process (Lasix Injection) 18:00 Dietary Evaluation Review Comments: Nutrition Recommendation 1) Ensure high protein 240ml BID 2) Kofi 1 pk BID 3) Monitor PO intake, lab values, weight trend, and I/O Expected Outcomes/Goals: Wound to improve Fu 3-5 days SUPRIYA SERRA MD Feb 10, 2025 10:23
[2025-02-11] VITALS (8 sets, daily range): BP systolic 105–138; BP diastolic 52–77; PULSE 65–71; RESP 17–92; TEMP 96.9–97.7; O2SAT 92–100
[2025-02-11 06:18] LABS: Hematocrit 28.2 % (41.0-53.0); Hemoglobin 9.6 g/dL (13.5-17.5); Mean Corpuscular Hemoglobin 31.8 pg (28.0-32.0); Mean Corpuscular Volume 93.7 fL (80.0-100.0); Nucleated Red Blood Cells % 0.0 %
[2025-02-11 06:25] LABS: Potassium 3.5 mmol/L (3.5-5.1)
[2025-02-11 06:26] LABS: Anion Gap 10 (5-15); Carbon Dioxide 32 mmol/L (20-31); Chloride 90 mmol/L (98-107); Sodium 132 mmol/L (136-145)
[2025-02-11 06:28] LABS: Calcium 8.5 mg/dL (8.7-10.4)
[2025-02-11 06:32] LABS: BUN/Creatinine Ratio 19.6 (10.0-20.0)
[2025-02-11 06:40] LABS: Blood Urea Nitrogen 37 mg/dL (9-23); Glucose 73 mg/dL (74-106)
--- NOTE | 2025-02-11 11:02 | DVHPN2 ---
Progress Note Date Seen: Feb 11, 2025 Has the PT tested + for MRSA If YES, has PT been informed?: Yes Medical Necessity Reason Pt with a Central, PICC or Fol: No Subjective Patient reports: No new complaints Review of Systems: MSK:Abnormal Objective vital signs Vital Sign Date Time Temp Pulse Resp B/P (MAP) Pulse Ox O2 Delivery O2 Flow Rate FiO2 02/11/25 09:21 71 125/65 02/11/25 09:00 97.4 18 97 97.4 02/10/25 20:00 Room Air* 0 21 Total Intake and Output 02/10/25 02/10/25 02/11/25 15:00 23:00 07:00 Intake Total 100 ml 1100 ml Output Total 1650 ml 1350 ml Balance -1550 ml -250 ml medications Current Medications Medications Dose Ordered Sig/Margo Route Start Time Stop Time Status Last Admin Dose Admin Aspirin 81 mg QAM PO 02/02/25 07:00 02/11/25 05:58 81 MG Tamsulosin HCl 0.4 mg HS PO 02/01/25 22:00 02/10/25 21:58 0.4 MG Atorvastatin Calcium 80 mg HS PO 02/01/25 22:00 02/10/25 21:58 80 MG Ondansetron HCl 4 mg Q4HP PRN IV 02/01/25 17:30 Docusate Sodium 100 mg BIDPRN PRN PO 02/01/25 17:30 Enoxaparin Sodium 40 mg DAILY SC 02/01/25 17:30 02/11/25 09:22 40 MG Nitroglycerin 0.4 mg Q5MINP PRN SL 02/01/25 17:30 Ergocalciferol 50,000 unit Q7D PO 02/02/25 14:15 02/02/25 14:44 50,000 UNIT Acetaminophen 650 mg Q6HP PRN PO 02/02/25 17:00 02/02/25 20:25 650 MG Enteral Nutritional Formula 240 ml TIDWM PO 02/02/25 18:00 02/11/25 09:20 240 ML Linezolid 300 ml @ 150 mls/hr Q12HR IV 02/04/25 22:00 02/11/25 09:22 150 MLS/HR Pantoprazole Sodium 40 mg DAILY IV 02/06/25 10:00 02/11/25 09:22 40 MG Nifedipine 60 mg DAILY PO 02/08/25 10:00 02/11/25 09:21 60 MG Carvedilol 6.25 mg Q12HR PO 02/08/25 10:00 02/11/25 09:21 6.25 MG Furosemide 40 mg BIDD IV 02/09/25 18:00 02/11/25 05:58 40 MG Examination: LUNGS:Normal, CVS:Normal, MSK:Abnormal laboratory and microbiology Laboratory Tests 02/11/25 05:45 Test 02/11/25 05:45 Range/Units Serum Glucose 73 L 74-106 mg/dL Microbiology Date/Time Source Procedure Growth Status 02/06/25 17:50 Pleural Fluid Gram Stain - Final Resulted 02/06/25 17:50 Pleural Fluid Body Fluid Culture - Preliminary Resulted 02/02/25 13:10 Blood Blood Culture - Final NO GROWTH AFTER 5 DAYS OF INCUBATION. Complete 02/01/25 23:45 Leg Gram Stain - Final Complete 02/01/25 23:45 Wound Culture - Final Enterococcus faecalis Complete Problem List/Assessment/Plan Problem List/Assessment/Plan Acute kidney injury superimposed Chronic Kidney Disease secondary hemodynamic mediated, ATN, FeNa > 2% Vancomycin nephrotoxicity Right lower extremity stump cellulitis Congestive heart failure, ejection fraction 15% Hyponatremia due to excess H2O Diabetes mellitus type 2 Mild proteinuria due to underlying diabetic nephropathy Hypertension Peripheral arterial disease AFib Anemia of chronic kidney disease Recommendation Kidney function slightly worsened today Increased urine output Discontinue vancomycin Strict I&Os Insulin sliding scale Blood pressure control Furosemide 40 mg IV b.i.d. KCL replacement Cardiology consult IV antibiotics Wound care We will continue to follow Plan discussed with: Patient Dietary Evaluation Review Comments: Nutrition Recommendation 1) Ensure high protein 240ml BID 2) Kofi 1 pk BID 3) Monitor PO intake, lab values, weight trend, and I/O Expected Outcomes/Goals: Wound to improve Fu 3-5 days SUPRIYA SERRA MD Feb 11, 2025 11:02
--- NOTE | 2025-02-11 13:50 | DVHPNRES ---
Progress Note Date Seen: Feb 11, 2025 Resident Creating Document: NITHYA ROLAND RESIDENT Has the PT tested + for MRSA If YES, has PT been informed?: Yes Medical Necessity Reason Pt with a Central, PICC or Fol: No Subjective Review of Systems Patient is a 59-year-old male with past medical history of HFrEF EF15%, type 2 diabetes mellitus, hypertension, hyperlipidemia, has left BKA and right AKA. Patient came to the ED with chief complaint of bilateral leg swelling, a blister on the left stump, which is draining fluid since 1 month. The blister on the right stump was present since 1 week,states he had some pain and redness around the blister. Patient has been in rehab since 4 months in [facility]. Patient was recently admitted in this facility on October 2024 for Sepsis secondary to bilateral lower extremity cellulitis., and was discharged with vanc and Zosyn for 2 weeks. Wound consult was placed. past surgical history: CABG surgery in [place], S/P PCI with 2 stents. Family history: reviewed, noncontributory personal history: Patient denies smoking, alcohol or any drug use. pcp- Dr. Ferreira 02/02/2025 Patient seen at bedside. Patient is alert x3, in no distress, complains of mild shortness of breath, mild pain in his left leg stump with watery drainage which soaks up his bed since 1 month, he has bilateral leg swelling but more on the right leg, patient states that the blister has been present for 1 week and is painful. Patient is on room air and does not use home oxygen. ESR was elevated, chest x-ray shows Probable pulmonary edema. An underlying pneumonia in the right lower lung zone can not be excluded. Venous Doppler shows No evidence of deep vein thrombosis. X-ray tibia/ fibula showed Below-knee amputation. No acute fracture identified. No retained radiopaque foreign body. Patient had vitamin-D deficiency, was supplemented vitamin-D 5000 units per week. Patient was started on IV vancomycin , cefepime, furosemide 40 mg b.i.d. 02/04/25 patient seen at bedside. Patient is alert x3, in no acute distress, patient still complains of mild shortness of breath, is on 3 L oxygen, is coughing, he still complains of bilateral leg swelling and discharge from the right stump. He also states that he has not had a bowel movement since 2 days. Wound culture came back positive for Enterococcus faecalis and IV vancomycin was changed to IV Zyvox 600 mg. 02/05/25 Patient seen at bedside. Patient is alert x3, no acute distress, complains of mild shortness of breath, is still on 3 L oxygen. The still discharge coming from his right stump. furosemide was increased to 40 mg IV t.i.d. social service was consulted for resuming SNF for placement. Extremity ultrasound showed subcutaneous edema. ABG was done. 02/06/25 Patient seen at bedside. Patient is alert x3, in no acute distress, complains of his right leg the drainage, mild shortness of breath is still on 3 L oxygen. Furosemide was increased to 4 times a day and social service was consulted for home health with PT. Pleural was done with removal of 800 mL of fluid. Pleural fluid was sent to the lab for LDH, WBC, culture, protein. Patient is stable chest x-ray was ordered, Pending. 02/07/25 patient seen at bedside. patient is alert x3, in no acute distress, does not complain of any chest pain or in the insertion site. patient furosemide was increased to 60mg TID. Repeat chest xray showed Moderate right-sided pleural effusion with associated atelectasis / pneumonia ; improved from prior imaging. Trace left-sided pleural effusion with associated atelectasis. pleural fluid Shows WBC of 168 ,RBC 28, PMN 20, . patient is to be discharged with home with home health with PT. 02/08/25 Patient seen at bedside. Patient is alert x3, has no new complaints, patinets output was 6800ml. patient was given Metolozone 5mg. 02/09/25 Patient seen at bedside. He has no new complaints, Nephrology was consulted due to increasing creatinine, and recommended furosemide has be decreased to 40mg B.i.d. potassium replaced. Wound care has been done. 02/10/25 Patient seen at bedside. Patient is alert x3, has no new complaints, patient is urine output was 3300 ml. Nephrology on board and recommended Furosemide 40 mg IV b.i.d., KCL replacement, cardiology consult. 02/11/2025: Patient was seen at the bedside. Patient has not had a bowel movement in the past 3 days and was given MiraLAX 17 g powder. His wound is still seeping. patient's urine output was 3000 mL. Pitting edema still present in the left leg. IV Furosemide 40 mg b.i.d. continued. Cardiology consult for patient's heart failure, pending. Objective vital signs Vital Sign Date Time Temp Pulse Resp B/P (MAP) Pulse Ox O2 Delivery O2 Flow Rate FiO2 02/11/25 12:53 97.6 65 20 126/66 (86) 95 97.6 02/10/25 20:00 Room Air* 0 21 Total Intake and Output 02/10/25 02/10/25 02/11/25 15:00 23:00 07:00 Intake Total 100 ml 1100 ml Output Total 1650 ml 1350 ml Balance -1550 ml -250 ml medications Current Medications Medications Dose Ordered Sig/Margo Route Start Time Stop Time Status Last Admin Dose Admin Aspirin 81 mg QAM PO 02/02/25 07:00 02/11/25 05:58 81 MG Tamsulosin HCl 0.4 mg HS PO 02/01/25 22:00 02/10/25 21:58 0.4 MG Atorvastatin Calcium 80 mg HS PO 02/01/25 22:00 02/10/25 21:58 80 MG Ondansetron HCl 4 mg Q4HP PRN IV 02/01/25 17:30 Docusate Sodium 100 mg BIDPRN PRN PO 02/01/25 17:30 Enoxaparin Sodium 40 mg DAILY SC 02/01/25 17:30 02/11/25 09:22 40 MG Nitroglycerin 0.4 mg Q5MINP PRN SL 02/01/25 17:30 Ergocalciferol 50,000 unit Q7D PO 02/02/25 14:15 02/02/25 14:44 50,000 UNIT Acetaminophen 650 mg Q6HP PRN PO 02/02/25 17:00 02/02/25 20:25 650 MG Enteral Nutritional Formula 240 ml TIDWM PO 02/02/25 18:00 02/11/25 09:20 240 ML Linezolid 300 ml @ 150 mls/hr Q12HR IV 02/04/25 22:00 02/11/25 09:22 150 MLS/HR Pantoprazole Sodium 40 mg DAILY IV 02/06/25 10:00 02/11/25 09:22 40 MG Nifedipine 60 mg DAILY PO 02/08/25 10:00 02/11/25 09:21 60 MG Carvedilol 6.25 mg Q12HR PO 02/08/25 10:00 02/11/25 09:21 6.25 MG Furosemide 40 mg BIDD IV 02/09/25 18:00 02/11/25 05:58 40 MG Examination General: Patient alert and oriented in person, place and time. Patient following commands. HEENT: Normocephalic, atraumatic, moist mucous membranes Respiratory/pulmonary: Rales heard on Auscultation on right side Cardiovascular: Normal heart sounds S1 and S2 with no associated murmurs Abdomen: Abdomen nondistended, there is no pain to palpation in any of the abdominal quadrants, no palpable masses. Extremities: Right BKA, left AKA, 2+ bilateral lower extremity pitting edema, with discharge from right stump, Scrotal swelling Peripheral Pulses: 3+ Radial (R). 3+ Radial (L). 3+ Dorsalis pedis (R). 3+ Dorsalis pedis(L) Skin: No rashes or pruritus, there is no sacral edema present at this time. Neurological: Intact cranial nerves with no focal neurologic deficits laboratory and microbiology Laboratory Tests 02/11/25 05:45 Test 02/11/25 05:45 Range/Units Serum Glucose 73 L 74-106 mg/dL Microbiology Date/Time Source Procedure Growth Status 02/06/25 17:50 Pleural Fluid Gram Stain - Final Complete 02/06/25 17:50 Pleural Fluid Body Fluid Culture - Final Complete 02/02/25 13:10 Blood Blood Culture - Final NO GROWTH AFTER 5 DAYS OF INCUBATION. Complete 02/01/25 23:45 Leg Gram Stain - Final Complete 02/01/25 23:45 Wound Culture - Final Enterococcus faecalis Complete Labs and/or images reviewed: Labs reviewed by me, Image(s) reviewed by me Problem List/Assessment/Plan Problem List/Assessment/Plan # acute RLE stump infection # possible acute cellulitis of left stump # history of right below-knee amputation # history of left above-knee amputation - x-ray showed Below-knee amputation. No acute fracture identified. No retained radiopaque foreign body. - venous Doppler showed No evidence of deep vein thrombosis. - ordered wound consult done - wound cultures done and shows Enterococcus faecalis - patient starting on Zyvox 600 mg q.12, cefepime - patient stopped on IV vancomycin - both legs are elevated - Metolozone 5mg given - given morphine 2 mg for pain #acute hypoxic resp failure # Acute on chronic CHF, HFrEF, NYHA- 3 # Pul edema # Uncontrolled hypertension - troponins negative - held lisinopril - strict I&Os - previous echo showed EF of 15% on 11/05/2024 -cardiologic consult, pending - pleural tap was done with 800 mL fluid removed - pleural fluid protein, WBC, culture, LDH was ordered - furosemide 40mg b.i.d # Acute JEREMÍAS on CKD 3a # anemia likely d/t ckd - strict I&Os - IV fluids given -FeNA- 2.6% # vitamin-D deficiency - vitamin-D 47793 units per week given #Hypokalemia - replated potassium # anemia of chronic disease # hyperlipidemia - continue atorvastatin #obesity- BMI-36.7 PPD PPX: Not indicated DVT PPX: Lovenox Goals of care addressed with the patient for more than 27 minutes: Full code status Case discussed with Dr. Pastrana, patient and nurse Plan discussed with: Patient, Other (rn) My Orders My Orders Orders - NITHYA ROLAND Procedure Category Date Status Time Maintain Fluid SOLO 02/11/25 In Process Restrictions 12:03 * Cardiology Consult CONS 02/11/25 Transmitted 13:43 Dietary Evaluation Review Comments: Nutrition Recommendation 1) Ensure high protein 240ml BID 2) Kofi 1 pk BID 3) Monitor PO intake, lab values, weight trend, and I/O Expected Outcomes/Goals: Wound to improve Fu 3-5 days Date of Service: Feb 11, 2025 Billing Provider: FELIPE PASTRANA MD Common Visit Codes: [id number] INP/OBS CARE(HIGH) NITHYA ROLAND Feb 11, 2025 13:50 FELIPE PASTRANA MD Feb 11, 2025 21:19
--- NOTE | 2025-02-11 15:02 | DVHINCON2 ---
Date Seen: Feb 11, 2025 Referring Physician MD Vanessa resident Reason for Consultation CHF History of Present Illness This is a 59-year-old male patient who presents to the emergency room with chief complaint of bilateral lower extremity edema. The patient reports he has been experiencing edema to his bilateral lower extremities since October 2024. He was seen at this facility and discharged on 11/08/2024 to [facility] after being diagnosed with bilateral upper thigh cellulitis and sepsis. Cardiology has been consulted at this time for congestive heart failure. The patient denies any cardiac symptoms at time of assessment. No twelve lead electrocardiogram was found the patient's hard chart or on cardio grade teacher. A twelve lead electrocardiogram was requested and obtained at time of assessment and reveals normal sinus rhythm with left bundle branch block and PVC. Initial troponin level was negative. Initial BNP level of 2901.36pg/mL noted. Significant past medical history includes congestive heart failure, severe coronary artery disease status post quadruple vessel CABG in 2019 and two previous drug-eluting stents (on aspirin), peripheral arterial disease, hyperte nsion, dyslipidemia, type 2 diabetes mellitus, right uoyij-myg-mxbi amputation, and left ffnjj-oce-hayh amputation. The patient does not follow up with a community living coach in the outpatient setting. The patient admits to dietary indiscretions stating that he has been ordering [place] food very often to be delivered to the SNF where he has been staying. Past Medical History Past medical history reviewed. No other significant than mentioned above. Past Surgical History Quadruple vessel CABG in 2019 at [facility] PTCA x2 LUTHER Right jvyrg-zug-kyvf amputation Left tfbzl-wcy-donq amputation Family History: Diabetes mellitus G8 MOTHER FH: myocardial infarction G8 FATHER Family History Family history reviewed. Social History Denies the use of tobacco, alcohol or illicit drugs. Allergies: Coded Allergies: Penicillins (Verified Allergy, Unknown, 12/31/23) Home Meds Reported Medications Potassium Chloride (Klor-Con M20) 20 Meq Tab, 20 MEQ PO DAILY, TAB 02/01/25 Docusate Sodium (Colace) 100 Mg Cap, 1 CAP PO BID, #30 CAP 02/01/25 Acetaminophen (Tylenol) 325 Mg Tb, 325 MG PO QID, TAB 02/01/25 Acetaminophen (Tylenol) 325 Mg Cap, 325 MG PO 6XD, CAP 02/01/25 Levofloxacin Hemihydrate (LEVAQUIN 500 MG) 500 Mg Tab, 1 TAB PO DAILY, #7 TAB 02/01/25 Omeprazole (Gnp Omeprazole) 20 Mg Tab, 1 TAB PO DAILY, #90 TAB 1 Refill 02/01/25 Nifedipine (Nifedipine Er) 30 Mg Tab, 1 TAB PO DAILY for 90 Days, #90 11/06/24 Aspirin (Aspirin Low Dose) 81 Mg Tab, 1 TAB PO QAM for 90 Days, #90 11/06/24 Tamsulosin Hcl (Tamsulosin Hcl) 0.4 Mg Cap, 1 CAP PO HS for 90 Days, #90 11/06/24 Metoclopramide HCl (Metoclopramide Hydrochlor) 10 Mg Tab, 1 TAB PO TID for 30 Days, #90 11/06/24 Atorvastatin Calcium (ATORVASTATIN CALCIUM) 80 Mg Tab, 1 TAB PO DAILY for 90 Days, #90 11/06/24 Lisinopril (Lisinopril) 20 Mg Tab, 1 TAB PO DAILY for 90 Days, #90 11/06/24 Home Meds Home medications reviewed. Review of Systems Constitutional: No symptom reported Ears, Nose, & Throat: No symptom reported Eyes: No symptom reported Neurological: No symptoms reported Pulmonary/Respiratory: No symptoms reported Cardiovascular: Bilateral lower extremity edema Gastrointestinal: No symptom reported Genitourinary: No symptom reported Musculoskeletal: No symptom reported Skin: No symptom reported Psychiatric: No symptom reported Endocrine: No symptom reported Hematologic/Lymphatic: No symptom reported Vital Signs Vital Signs Date Time Temp Pulse Resp B/P (MAP) Pulse Ox O2 Delivery O2 Flow Rate FiO2 02/11/25 12:53 97.6 65 20 126/66 (86) 95 97.6 02/11/25 08:15 Room Air* 0 21 Physical Exam General Appearance: Cooperative. Well-developed. Well-nourished. No acute distress. Pulmonary/Respiratory: Clear, bilateral breaths sounds. Cardiovascular/Chest: Regular rate and rhythm. Peripheral Pulses: 2+ Radial (R). 2+ Radial (L). Abdominal Exam: Normal bowel sounds. Soft, non-tender. Lower extremities: Right fwlkt-kyp-orjr amputation and left jhnvt-sgs-viwi amputation. 3+ pitting edema to left lower extremity (directly below kneecap) Neuro/Mental Status: A/OX4, coherent. Thoughts/Psych: Normal thought pattern. Appropriate mood and affect. Good judgment and insight. Appearance: No acute distress. Skin Exam: Normal inspection. Normal color. Warm and dry. Labs/Diagnostic Data Labs Test 02/11/25 05:45 02/09/25 07:18 02/07/25 08:21 02/06/25 17:50 Range/Units White Blood Count 4.8 4.4-10.8 10^3/uL Red Blood Count 3.01 L 4.5-5.90 10^6/uL Hemoglobin 9.6 L 13.5-17.5 g/dL Hematocrit 28.2 L 41.0-53.0 % Mean Corpuscular Volume 93.7 80.0-100.0 fL Mean Corpuscular Hemoglobin 31.8 28.0-32.0 pg Mean Corpuscular Hemoglobin Concent 34.0 32.0-36.0 g/dL Red Cell Distribution Width 15.5 H 11.8-14.3 % Platelet Count 192 140-450 10^3/uL Mean Platelet Volume 8.6 6.9-10.8 fL Neutrophils (%) (Auto) 62.6 37.0-80.0 % Lymphocytes (%) (Auto) 26.4 10.0-50.0 % Monocytes (%) (Auto) 7.5 0.0-12.0 % Eosinophils (%) (Auto) 2.8 0.0-7.0 % Basophils (%) (Auto) 0.7 0.0-2.0 % Neutrophils # (Auto) 3.0 1.6-8.6 10 ^3/uL Lymphocytes # (Auto) 1.3 0.4-5.4 10 ^3/uL Monocytes # (Auto) 0.4 0-1.3 10 ^3/uL Eosinophils # (Auto) 0.1 0-0.8 10 ^3/uL Basophils # (Auto) 0 0-0.2 10 ^3/uL Nucleated Red Blood Cells 0.0 % Sodium Level 132 L 136-145 mmol/L Potassium Level 3.5 3.5-5.1 mmol/L Chloride Level 90 L 98-107 mmol/L Carbon Dioxide Level 32 H 20-31 mmol/L Anion Gap 10 5-15 Blood Urea Nitrogen 37 H 9-23 mg/dL Creatinine 1.89 H 0.700-1.30 mg/dL Glomerular Filtration Rate Calc 40 >90 mL/min BUN/Creatinine Ratio 19.6 10.0-20.0 Serum Glucose 73 L 74-106 mg/dL Calcium Level 8.5 L 8.7-10.4 mg/dL Magnesium Level 2.0 1.6-2.6 mg/dL Lactate Dehydrogenase 134 120-246 U/L Body Fluid Source Pleural fluid Body Fluid WBC (Manual) 168 0-200 CUMM Body Fluid RBC (Manual) 28 0-2000 CUMM Body Fluid Mononuclear Cells 80 % Body Fluid Polymorphonuclear Cells 20 0-25 % Body Fluid Total Protein 2.1 . g/dL Body Fluid Lactate Dehydrogenase 46 . IU/L Test 02/05/25 13:59 02/04/25 20:20 02/02/25 17:21 02/02/25 11:41 Range/Units Blood Gas Specimen Type Arterial Blood Gas Sample Site Left radial Blood Gas Patient Temperature 37.0 Arterial Blood Date Drawn [id number] Arterial Blood pH 7.467 H 7.350-7.450 Arterial Blood Partial Pressure CO2 39.3 35.0-48.0 mmHg Arterial Blood Partial Pressure O2 43.1 *L 83.0-108.0 mmHg Arterial Blood HCO3 27.8 21.0-28.0 mmol/L Arterial Blood Oxygen Saturation 77.3 *L 94.0-98.0 % Arterial Blood Base Excess 3.8 H -2.0-3.0 mmol/L Arterial Blood Oxyhemoglobin 76.8 L 94.0-98.0 % Arterial Blood Carboxyhemoglobin 0.2 L 0.5-1.5 % Arterial Blood Methemoglobin 0.4 0.0-1.5 % Unruly Test Yes Blood Gas Total Hemoglobin 9.30 L 13.5-17.5 g/dL Blood Gas Modality Room air FiO2 % 21.0 Blood Gas Critical Value Read Back Yes Blood Gas Notified Whom A mila ernst Blood Gas Notified Time [id number] Blood Gas Notified By Clerical Adjudicator magdy koroma Vancomycin Level Trough 28.7 H 5-10 ug/mL POC Glucose 87 70-106 mg/dl Vitamin B12 Level 182 L 211-911 pg/mL Vitamin D 25-Hydroxy 13.0 L 30.0-100 ng/mL Folic Acid 11.25 >5.38 ng/mL Free Thyroxine (T4) Calculated 1.01 0.89-1.76 ng/dL Test 02/02/25 06:07 02/01/25 21:00 02/01/25 14:12 Range/Units Reticulocyte Count (auto) 0.79 0.5-1.5 % Prothrombin Time 11.5 9.3-11.8 sec Prothrombin Time INR 1.09 0.9-1.15 Activated Partial Thromboplast Time 33.4 24.5-34.5 SEC Hemoglobin A1c 5.1 <5.7 % A1C Phosphorus Level 3.3 2.4-5.1 mg/dL Total Bilirubin 1.0 0.2-1.0 mg/dL Aspartate Amino Transferase (AST) 24 13-40 U/L Alanine Aminotransferase (ALT) 22 7-40 U/L Alkaline Phosphatase 463 H 46-116 U/L Total Protein 6.2 5.7-8.2 g/dL Albumin 3.1 L 3.2-4.8 g/dL Thyroid Stimulating Hormone (TSH) 11.61 H 0.55-4.78 uIU/mL Parathyroid Hormone (Intact) 84.7 H 18.4-80.1 pg/mL Random Vancomycin Level 15.2 H 5-10 ug/mL Plasma/Serum Blood Alcohol 4.6 <10 mg/dL Urine Color Light-yellow Yellow Urine Clarity Clear Clear Urine pH 6.0 5.0-9.0 Urine Specific [place] 1.009 1.001-1.035 Urine Protein Trace H Negative Urine Ketones Negative Negative Urine Blood Negative Negative /uL Urine Nitrite Negative Negative Urine Bilirubin Negative Negative Urine Urobilinogen Normal Negative mg/dL Urine Leukocyte Esterase Negative Negative /uL Urine RBC <1 0 - 3 /hpf Urine Microscopic WBC < 1 0-3 /HPF Urine Squamous Epithelial Cells None seen <5 /hpf Urine Bacteria None seen None Seen /hpf Urine Creatinine 27.52 L 30.0-125.0 mg/dL Urine Protein/Creatinine Ratio 1.19 Urine Sodium 64 40-220 mmol/L Urine Glucose Normal Normal mg/dL Urine Total Protein 32.8 H 1-14 mg/dL Urine Opiates Screen Neg NEGATIVE Urine Fentanyl Screen Neg NEGATIVE Urine Barbiturates Screen Neg NEGATIVE Urine Phencyclidine Screen Neg NEGATIVE Urine Amphetamines Screen Neg NEGATIVE Urine Benzodiazepines Screen Neg NEGATIVE Urine Cocaine Screen Neg NEGATIVE Urine Cannabinoids Screen Neg NEGATIVE Erythrocyte Sedimentation Rate 40 H 0-20 mm/hr Lactic Acid Level 1.1 0.4-2.0 mmol/L Troponin I High Sensitivity 8 </=54 ng/L C-Reactive Protein High Sensitivity 1.63 H <1.0 mg/dL B-Type Natriuretic Peptide 2901.36 0-100 pg/mL Microbiology Date/Time Source Procedure Growth Status 02/06/25 17:50 Pleural Fluid Gram Stain - Final Complete 02/06/25 17:50 Pleural Fluid Body Fluid Culture - Final Complete 02/02/25 13:10 Blood Blood Culture - Final NO GROWTH AFTER 5 DAYS OF INCUBATION. Complete 02/01/25 23:45 Leg Gram Stain - Final Complete 02/01/25 23:45 Wound Culture - Final Enterococcus faecalis Complete Assessment Acute on chronic decompensated HFrEF, NYHA class III Severe coronary artery disease status post quadruple vessel CABG in 2019 History of CAD with two drug-eluting stents (on aspirin) Ischemic cardiomyopathy Hypertension Dyslipidemia Peripheral arterial disease status post right rgklp-icv-rszn amputation and left jetir-vnz-tftc amputation Tricuspid valve regurgitation, moderate degree Pulmonary hypertension Left leg stump cellulitis Type 2 diabetes mellitus Acute on chronic anemia Chronic kidney disease Bed-bound Medical noncompliance Plan/Recommendation We will continue with the following plan/recommendations (Dr. Bowen): * Transthoracic echocardiogram from 11/04/2024 reveals an EF of 15%, RVSP 47 mmHg * Initiate guideline directed medical therapy for CHF as renal function permits * Stop calcium channel arin as this is contraindicated in HFrEF patients * Unable to initiate ARNI/ACEi/ARB, MRA or SLT2i given poor renal function at this time * Strict intake and output, daily weights, maintain fluid restriction and a low- sodium diet * Preload and afterload reduction * Single antiplatelet therapy and lipid-lowering agent * Risk factor modifications, counseled * Adherence to low-salt diet * Medication adherence * Outpatient Cardiology follow up Case discussed with . We will proceed with medical management at this time. If no improvement in EF within 3-6 months on uninterrupted guideline directed medical therapy, the patient may qualify for ICD implantation. Thank you for allowing us to care for this patient. Please call with any questions or concerns. Critical care time spent: 44 minutes This medical document was created using an electronic medical record system with voice recognition software and computerized dictation system. Although this document has been carefully reviewed, there might still be some phonetic and typographical errors. Occasional wrong-word or ``sound-alike substitutions may have occurred due to the inherent limitations of voice recognition software. These areas are purely typographical due to imperfections of the software pr ograms and do not reflect any compromise in the patient's medical care. Please read the chart carefully and recognize, using context, where these substitutions have occurred. Plan discussed with: Patient NYHA Physical activity limitations: Class3(Marked) ordinary (activity causes symtoms) Date of Service: Feb 11, 2025 Billing Provider: TRUDY CARTWRIGHT Cardiology Common Codes: [id number] INP/OBS CARE (High) Cardiology Consultation Codes: [id number] CONSULT <45MIN TRUDY CARTWRIGHT Feb 11, 2025 15:02
--- NOTE | 2025-02-11 15:09 | ECG ---
[facility] Test Date: 2025-02-11 Test Time: 15:08:22 Pat Name: JAGRUTI JEREZ Department: Room: 0291T Gender: M Tube Handler: SB : 1965 Requested By: TRUDY CARTWRIGHT Order Number: [id number] Reading MD: Raheem Esposito Measurements Intervals [place] Rate: 65 P: 65 SD: 193 QRS: -57 QRSD: 124 T: 107 QT: 439 QTc: 457 Interpretive Statements Sinus rhythm Ventricular premature complex Left bundle branch block Electronically Signed On 02-13-2025 13:22:31 PDT by Raheem Esposito Please click the below link to view image of tracing.
[2025-02-11] MEDS: POLYETHYLENE GLYCOL 17 GM PWDR PO ONE (17:14)
[2025-02-11] MEDS ORDERED: ATORVASTATIN 20 MG TAB PO SCH (22:00)
[2025-02-12] VITALS (10 sets, daily range): BP systolic 120–185; BP diastolic 40–90; PULSE 70–89; RESP 16–18; TEMP 97.5–97.8; O2SAT 93–100
[2025-02-12 07:25] LABS: Hematocrit 27.5 % (41.0-53.0); Hemoglobin 9.5 g/dL (13.5-17.5); Mean Corpuscular Hemoglobin 32.1 pg (28.0-32.0); Mean Corpuscular Volume 93.1 fL (80.0-100.0); Nucleated Red Blood Cells % 0.3 %
[2025-02-12 07:40] LABS: Anion Gap 9 (5-15); Carbon Dioxide 30 mmol/L (20-31)
[2025-02-12 07:41] LABS: Calcium 8.6 mg/dL (8.7-10.4); Chloride 90 mmol/L (98-107); Potassium 3.4 mmol/L (3.5-5.1); Sodium 129 mmol/L (136-145)
[2025-02-12 07:46] LABS: BUN/Creatinine Ratio 16.8 (10.0-20.0); Glucose 82 mg/dL (74-106)
[2025-02-12 07:50] LABS: Blood Urea Nitrogen 33 mg/dL (9-23)
[2025-02-12] MEDS: POTASSIUM EFFERVESENT TAB 25 MEQ PO ONE (12:00)
--- NOTE | 2025-02-12 12:10 | DVHPN2 ---
Progress Note Date Seen: Feb 12, 2025 Has the PT tested + for MRSA If YES, has PT been informed?: Yes Medical Necessity Reason Pt with a Central, PICC or Fol: No Objective vital signs Vital Sign Date Time Temp Pulse Resp B/P (MAP) Pulse Ox O2 Delivery O2 Flow Rate FiO2 02/12/25 09:22 185/40 02/12/25 09:22 76 02/12/25 09:00 97.5 16 93 97.5 02/12/25 08:08 Room Air* 0 21 Total Intake and Output 02/11/25 02/11/25 02/12/25 15:00 23:00 07:00 Intake Total 518 ml 500 ml 400 ml Output Total 1170 ml 600 ml Balance 518 ml -670 ml -200 ml medications Current Medications Medications Dose Ordered Sig/Margo Route Start Time Stop Time Status Last Admin Dose Admin Aspirin 81 mg QAM PO 02/02/25 07:00 02/12/25 06:06 81 MG Tamsulosin HCl 0.4 mg HS PO 02/01/25 22:00 02/11/25 21:22 0.4 MG Atorvastatin Calcium 80 mg HS PO 02/01/25 22:00 02/11/25 21:22 80 MG Ondansetron HCl 4 mg Q4HP PRN IV 02/01/25 17:30 Docusate Sodium 100 mg BIDPRN PRN PO 02/01/25 17:30 Enoxaparin Sodium 40 mg DAILY SC 02/01/25 17:30 02/12/25 09:21 40 MG Nitroglycerin 0.4 mg Q5MINP PRN SL 02/01/25 17:30 Ergocalciferol 50,000 unit Q7D PO 02/02/25 14:15 02/02/25 14:44 50,000 UNIT Acetaminophen 650 mg Q6HP PRN PO 02/02/25 17:00 02/02/25 20:25 650 MG Enteral Nutritional Formula 240 ml TIDWM PO 02/02/25 18:00 02/12/25 12:06 240 ML Linezolid 300 ml @ 150 mls/hr Q12HR IV 02/04/25 22:00 02/12/25 09:21 150 MLS/HR Pantoprazole Sodium 40 mg DAILY IV 02/06/25 10:00 02/12/25 09:20 40 MG Carvedilol 6.25 mg Q12HR PO 02/08/25 10:00 02/12/25 09:22 6.25 MG Hydralazine HCl 25 mg Q12HR PO 02/11/25 22:00 02/12/25 09:22 25 MG Furosemide 20 mg BIDD IV 02/13/25 09:00 Examination: GENERAL:Abnormal, HEENT:Abnormal, LUNGS:Abnormal, CVS:Abnormal, ABDOMEN:Abnormal laboratory and microbiology Laboratory Tests 02/12/25 06:17 Test 02/12/25 06:17 Range/Units Serum Glucose 82 74-106 mg/dL Microbiology Date/Time Source Procedure Growth Status 02/06/25 17:50 Pleural Fluid Gram Stain - Final Complete 02/06/25 17:50 Pleural Fluid Body Fluid Culture - Final Complete 02/02/25 13:10 Blood Blood Culture - Final NO GROWTH AFTER 5 DAYS OF INCUBATION. Complete 02/01/25 23:45 Leg Gram Stain - Final Complete 02/01/25 23:45 Wound Culture - Final Enterococcus faecalis Complete Problem List/Assessment/Plan Problem List/Assessment/Plan Acute on chronic decompensated HFrEF, NYHA class III Severe coronary artery disease status post quadruple vessel CABG in 2019 History of CAD with two drug-eluting stents (on aspirin) Ischemic cardiomyopathy Hypertension Dyslipidemia Peripheral arterial disease status post right yyqpp-zix-[id number] amputation and left kwikj-ygu-dxue amputation Tricuspid valve regurgitation, moderate degree Pulmonary hypertension Left leg stump cellulitis Type 2 diabetes mellitus Acute on chronic anemia Chronic kidney disease Bed-bound Medical noncompliance Plan/Recommendation We will continue with the following plan/recommendations (Dr. Butler): * Transthoracic echocardiogram from 11/04/2024 reveals an EF of 15%, RVSP 47 mmHg * Initiate guideline directed medical therapy for CHF as renal function permits * Stop calcium channel arin as this is contraindicated in HFrEF patients * Unable to initiate ARNI/ACEi/ARB, MRA or SLT2i given poor renal function at this time * Strict intake and output, daily weights, maintain fluid restriction and a low- sodium diet * Preload and afterload reduction * Single antiplatelet therapy and lipid-lowering agent * Risk factor modifications, counseled * Adherence to low-salt diet * Medication adherence * Outpatient Cardiology follow up Plan discussed with: Patient Dietary Evaluation Review Comments: Nutrition Recommendation 1) Ensure high protein 240ml BID 2) Kofi 1 pk BID 3) Monitor PO intake, lab values, weight trend, and I/O Expected Outcomes/Goals: Wound to improve Fu 3-5 days Date of Service: Feb 12, 2025 Billing Provider: JUSTO BUTLER MD Common Visit Codes: NOT BILLABLE JUSTO BUTLER MD Feb 12, 2025 12:10
--- NOTE | 2025-02-12 14:55 | DVHPN2 ---
Progress Note Date Seen: Feb 12, 2025 Has the PT tested + for MRSA If YES, has PT been informed?: Yes Medical Necessity Reason Pt with a Central, PICC or Fol: No Subjective Patient reports: Other Review of Systems: Deferred Objective vital signs Vital Sign Date Time Temp Pulse Resp B/P (MAP) Pulse Ox O2 Delivery O2 Flow Rate FiO2 02/12/25 11:00 148/59 (88) 02/12/25 09:22 76 02/12/25 09:00 97.5 16 93 97.5 02/12/25 08:08 Room Air* 0 21 Total Intake and Output 02/11/25 02/11/25 02/12/25 15:00 23:00 07:00 Intake Total 518 ml 500 ml 400 ml Output Total 1170 ml 600 ml Balance 518 ml -670 ml -200 ml medications Current Medications Medications Dose Ordered Sig/Margo Route Start Time Stop Time Status Last Admin Dose Admin Aspirin 81 mg QAM PO 02/02/25 07:00 02/12/25 06:06 81 MG Tamsulosin HCl 0.4 mg HS PO 02/01/25 22:00 02/11/25 21:22 0.4 MG Atorvastatin Calcium 80 mg HS PO 02/01/25 22:00 02/11/25 21:22 80 MG Ondansetron HCl 4 mg Q4HP PRN IV 02/01/25 17:30 Docusate Sodium 100 mg BIDPRN PRN PO 02/01/25 17:30 Enoxaparin Sodium 40 mg DAILY SC 02/01/25 17:30 02/12/25 09:21 40 MG Nitroglycerin 0.4 mg Q5MINP PRN SL 02/01/25 17:30 Ergocalciferol 50,000 unit Q7D PO 02/02/25 14:15 02/02/25 14:44 50,000 UNIT Acetaminophen 650 mg Q6HP PRN PO 02/02/25 17:00 02/02/25 20:25 650 MG Enteral Nutritional Formula 240 ml TIDWM PO 02/02/25 18:00 02/12/25 12:06 240 ML Linezolid 300 ml @ 150 mls/hr Q12HR IV 02/04/25 22:00 02/12/25 09:21 150 MLS/HR Pantoprazole Sodium 40 mg DAILY IV 02/06/25 10:00 02/12/25 09:20 40 MG Carvedilol 6.25 mg Q12HR PO 02/08/25 10:00 02/12/25 09:22 6.25 MG Hydralazine HCl 25 mg Q12HR PO 02/11/25 22:00 02/12/25 09:22 25 MG Furosemide 20 mg BIDD IV 02/13/25 09:00 laboratory and microbiology Laboratory Tests 02/12/25 06:17 Test 02/12/25 06:17 Range/Units Serum Glucose 82 74-106 mg/dL Microbiology Date/Time Source Procedure Growth Status 02/06/25 17:50 Pleural Fluid Gram Stain - Final Complete 02/06/25 17:50 Pleural Fluid Body Fluid Culture - Final Complete 02/02/25 13:10 Blood Blood Culture - Final NO GROWTH AFTER 5 DAYS OF INCUBATION. Complete 02/01/25 23:45 Leg Gram Stain - Final Complete 02/01/25 23:45 Wound Culture - Final Enterococcus faecalis Complete Problem List/Assessment/Plan Problem List/Assessment/Plan Acute kidney injury superimposed Chronic Kidney Disease secondary hemodynamic mediated, ATN, FeNa > 2% Vancomycin nephrotoxicity Right lower extremity stump cellulitis Congestive heart failure, ejection fraction 15% Hyponatremia due to excess H2O Diabetes mellitus type 2 Mild proteinuria due to underlying diabetic nephropathy Hypertension Peripheral arterial disease AFib Anemia of chronic kidney disease recs Reduce the Lasix dose Overall negative balance Plan discussed with: Patient My Orders My Orders Orders - SHAYY DILLARD MD Procedure Category Date Status Time Furosemide Injection PHA 02/13/25 In Process (Lasix Injection) 09:00 Dietary Evaluation Review Comments: Nutrition Recommendation 1) Ensure high protein 240ml BID 2) Kofi 1 pk BID 3) Monitor PO intake, lab values, weight trend, and I/O Expected Outcomes/Goals: Wound to improve Fu 3-5 days SHAYY DILLARD MD Feb 12, 2025 14:55
--- NOTE | 2025-02-12 17:09 | DVHPNRES ---
Progress Note Date Seen: Feb 12, 2025 Resident Creating Document: DAVID BOONE RESIDENT Has the PT tested + for MRSA If YES, has PT been informed?: Yes Medical Necessity Reason Pt with a Central, PICC or Fol: No Subjective Review of Systems Patient seen and examined at bedside, patient has no new complaint, wound care done today, possible discharge tomorrow. Objective vital signs Vital Sign Date Time Temp Pulse Resp B/P (MAP) Pulse Ox O2 Delivery O2 Flow Rate FiO2 02/12/25 11:00 148/59 (88) 02/12/25 09:22 76 02/12/25 09:00 97.5 16 93 97.5 02/12/25 08:08 Room Air* 0 21 Total Intake and Output 02/11/25 02/11/25 02/12/25 15:00 23:00 07:00 Intake Total 518 ml 500 ml 400 ml Output Total 1170 ml 600 ml Balance 518 ml -670 ml -200 ml medications Current Medications Medications Dose Ordered Sig/Margo Route Start Time Stop Time Status Last Admin Dose Admin Aspirin 81 mg QAM PO 02/02/25 07:00 02/12/25 06:06 81 MG Tamsulosin HCl 0.4 mg HS PO 02/01/25 22:00 02/11/25 21:22 0.4 MG Atorvastatin Calcium 80 mg HS PO 02/01/25 22:00 02/11/25 21:22 80 MG Ondansetron HCl 4 mg Q4HP PRN IV 02/01/25 17:30 Docusate Sodium 100 mg BIDPRN PRN PO 02/01/25 17:30 Enoxaparin Sodium 40 mg DAILY SC 02/01/25 17:30 02/12/25 09:21 40 MG Nitroglycerin 0.4 mg Q5MINP PRN SL 02/01/25 17:30 Ergocalciferol 50,000 unit Q7D PO 02/02/25 14:15 02/02/25 14:44 50,000 UNIT Acetaminophen 650 mg Q6HP PRN PO 02/02/25 17:00 02/02/25 20:25 650 MG Enteral Nutritional Formula 240 ml TIDWM PO 02/02/25 18:00 02/12/25 12:06 240 ML Linezolid 300 ml @ 150 mls/hr Q12HR IV 02/04/25 22:00 02/12/25 09:21 150 MLS/HR Pantoprazole Sodium 40 mg DAILY IV 02/06/25 10:00 02/12/25 09:20 40 MG Carvedilol 6.25 mg Q12HR PO 02/08/25 10:00 02/12/25 09:22 6.25 MG Hydralazine HCl 25 mg Q12HR PO 02/11/25 22:00 02/12/25 09:22 25 MG Furosemide 20 mg BIDD IV 02/13/25 09:00 Examination General: Patient alert and oriented in person, place and time. Patient following commands. HEENT: Normocephalic, atraumatic, moist mucous membranes Respiratory/pulmonary: Rales heard on Auscultation on right side Cardiovascular: Normal heart sounds S1 and S2 with no associated murmurs Abdomen: Abdomen nondistended, there is no pain to palpation in any of the abdominal quadrants, no palpable masses. Extremities: Right BKA, left AKA, 2+ bilateral lower extremity pitting edema, with discharge from right stump, Scrotal swelling Peripheral Pulses: 3+ Radial (R). 3+ Radial (L). 3+ Dorsalis pedis (R). 3+ Dorsalis pedis(L) Skin: No rashes or pruritus, there is no sacral edema present at this time. Neurological: Intact cranial nerves with no focal neurologic deficits. laboratory and microbiology Laboratory Tests 02/12/25 06:17 Test 02/12/25 06:17 Range/Units Serum Glucose 82 74-106 mg/dL Microbiology Date/Time Source Procedure Growth Status 02/06/25 17:50 Pleural Fluid Gram Stain - Final Complete 02/06/25 17:50 Pleural Fluid Body Fluid Culture - Final Complete 02/02/25 13:10 Blood Blood Culture - Final NO GROWTH AFTER 5 DAYS OF INCUBATION. Complete 02/01/25 23:45 Leg Gram Stain - Final Complete 02/01/25 23:45 Wound Culture - Final Enterococcus faecalis Complete Problem List/Assessment/Plan Problem List/Assessment/Plan # acute RLE stump infection # possible acute cellulitis of left stump # history of right below-knee amputation # history of left above-knee amputation - x-ray showed Below-knee amputation. No acute fracture identified. No retained radiopaque foreign body. - venous Doppler showed No evidence of deep vein thrombosis. - ordered wound consult done - wound cultures done and shows Enterococcus faecalis - patient starting on Zyvox 600 mg q.12, cefepime - patient stopped on IV vancomycin - both legs are elevated - Metolozone 5mg given - given morphine 2 mg for pain #acute hypoxic resp failure # Acute on chronic CHF, HFrEF, NYHA- 3, EF 15% # Pul edema # Uncontrolled hypertension - troponins negative - held lisinopril - previous echo showed EF of 15% on 11/05/2024 -cardiologic consult appreciated and recommends: Initiate guideline directed medical therapy for CHF as renal function permits - Stop calcium channel arin as this is contraindicated in HFrEF patients - Unable to initiate ARNI/ACEi/ARB, MRA or SLT2i given poor renal function at this time - Strict intake and output, daily weights, maintain fluid restriction and a low- sodium diet - pleural tap was done with 800 mL fluid removed - pleural fluid protein, WBC, culture, LDH was ordered - furosemide 40mg b.i.d # Acute JEREMÍAS on CKD 3a # anemia likely d/t ckd - strict I&Os - IV fluids given -FeNA- 2.6% # vitamin-D deficiency - vitamin-D 51671 units per week given #Hypokalemia - replated potassium # anemia of chronic disease # hyperlipidemia - continue atorvastatin #obesity- BMI-36.7 PPD PPX: Not indicated DVT PPX: Lovenox Possible discharge tomorrow Goals of care addressed with the patient for more than 24 minutes: Full code status Case discussed with Dr. Pastrana, Plan discussed with: Patient Dietary Evaluation Review Comments: Nutrition Recommendation 1) Ensure high protein 240ml BID 2) Kofi 1 pk BID 3) Monitor PO intake, lab values, weight trend, and I/O Expected Outcomes/Goals: Wound to improve Fu 3-5 days Date of Service: Feb 12, 2025 Billing Provider: FELIPE PASTRANA MD Common Visit Codes: [id number] INP/OBS CARE(HIGH) DAVID BOONE RESIDENT Feb 12, 2025 17:09 FELIPE PASTRANA MD Feb 15, 2025 10:20
[2025-02-13] VITALS (9 sets, daily range): BP systolic 142–158; BP diastolic 71–95; PULSE 71–80; RESP 16–18; TEMP 97.3–98; O2SAT 95–98
[2025-02-13 08:19] LABS: Hematocrit 27.3 % (41.0-53.0); Hemoglobin 9.4 g/dL (13.5-17.5); Mean Corpuscular Hemoglobin 32.0 pg (28.0-32.0); Mean Corpuscular Volume 92.9 fL (80.0-100.0); Nucleated Red Blood Cells % 0.1 %
[2025-02-13 08:38] LABS: Anion Gap 9 (5-15); Carbon Dioxide 31 mmol/L (20-31)
[2025-02-13 08:44] LABS: Calcium 8.7 mg/dL (8.7-10.4); Chloride 90 mmol/L (98-107); Glucose 83 mg/dL (74-106); Potassium 3.4 mmol/L (3.5-5.1); Sodium 130 mmol/L (136-145)
[2025-02-13 08:45] LABS: BUN/Creatinine Ratio 18.4 (10.0-20.0)
[2025-02-13 09:00] LABS: Blood Urea Nitrogen 34 mg/dL (9-23)
[2025-02-13] MEDS: FUROSEMIDE 40 MG/4 ML VIAL IV SCH (09:00)
[2025-02-13] MEDS: POTASSIUM EFFERVESENT TAB 25 MEQ PO ONE (10:00)
[2025-02-13] MEDS: POTASSIUM CHL 20 Meq TABLET PO ONE (14:51)
[2025-02-13] MEDS ORDERED: LINE1TAB6 PO (14:55)
[2025-02-13] MEDS ORDERED: FURO1TAB31 PO (14:55)
--- NOTE | 2025-02-13 14:57 | DVHDSRES ---
Discharge Summary Date of Admission Resident Creating Document: DAVID BOONE RESIDENT Feb 01, 2025 at 17:26 Date of Discharge: Feb 13, 2025 Labs/Diagnostic Data: Laboratory Results Test 02/13/25 07:55 02/09/25 07:18 02/07/25 08:21 02/06/25 17:50 White Blood Count 5.2 10^3/uL (4.4-10.8) Red Blood Count 2.94 10^6/uL (4.5-5.90) Hemoglobin 9.4 g/dL (13.5-17.5) Hematocrit 27.3 % (41.0-53.0) Mean Corpuscular Volume 92.9 fL (80.0-100.0) Mean Corpuscular Hemoglobin 32.0 pg (28.0-32.0) Mean Corpuscular Hemoglobin Concent 34.4 g/dL (32.0-36.0) Red Cell Distribution Width 15.3 % (11.8-14.3) Platelet Count 150 10^3/uL (140-450) Mean Platelet Volume 8.5 fL (6.9-10.8) Neutrophils (%) (Auto) 65.9 % (37.0-80.0) Lymphocytes (%) (Auto) 25.1 % (10.0-50.0) Monocytes (%) (Auto) 6.4 % (0.0-12.0) Eosinophils (%) (Auto) 2.0 % (0.0-7.0) Basophils (%) (Auto) 0.6 % (0.0-2.0) Neutrophils # (Auto) 3.4 10 ^3/uL (1.6-8.6) Lymphocytes # (Auto) 1.3 10 ^3/uL (0.4-5.4) Monocytes # (Auto) 0.3 10 ^3/uL (0-1.3) Eosinophils # (Auto) 0.1 10 ^3/uL (0-0.8) Basophils # (Auto) 0 10 ^3/uL (0-0.2) Nucleated Red Blood Cells 0.1 % Sodium Level 130 mmol/L (136-145) Potassium Level 3.4 mmol/L (3.5-5.1) Chloride Level 90 mmol/L (98-107) Carbon Dioxide Level 31 mmol/L (20-31) Anion Gap 9 (5-15) Blood Urea Nitrogen 34 mg/dL (9-23) Creatinine 1.85 mg/dL (0.700-1.30) Glomerular Filtration Rate Calc 41 mL/min (>90) BUN/Creatinine Ratio 18.4 (10.0-20.0) Serum Glucose 83 mg/dL (74-106) Calcium Level 8.7 mg/dL (8.7-10.4) Magnesium Level 2.0 mg/dL (1.6-2.6) Lactate Dehydrogenase 134 U/L (120-246) Body Fluid Source Pleural fluid Body Fluid WBC (Manual) 168 CUMM (0-200) Body Fluid RBC (Manual) 28 CUMM (0-2000) Body Fluid Mononuclear Cells 80 % Body Fluid Polymorphonuclear Cells 20 % (0-25) Body Fluid Total Protein 2.1 g/dL (.) Body Fluid Lactate Dehydrogenase 46 IU/L (.) Test 02/05/25 13:59 02/04/25 20:20 02/02/25 17:21 02/02/25 11:41 Blood Gas Specimen Type Arterial Blood Gas Sample Site Left radial Blood Gas Patient Temperature 37.0 Arterial Blood Date Drawn [id number] Arterial Blood pH 7.467 (7.350-7.450) Arterial Blood Partial Pressure CO2 39.3 mmHg (35.0-48.0) Arterial Blood Partial Pressure O2 43.1 mmHg (83.0-108.0) Arterial Blood HCO3 27.8 mmol/L (21.0-28.0) Arterial Blood Oxygen Saturation 77.3 % (94.0-98.0) Arterial Blood Base Excess 3.8 mmol/L (-2.0-3.0) Arterial Blood Oxyhemoglobin 76.8 % (94.0-98.0) Arterial Blood Carboxyhemoglobin 0.2 % (0.5-1.5) Arterial Blood Methemoglobin 0.4 % (0.0-1.5) Unruly Test Yes Blood Gas Total Hemoglobin 9.30 g/dL (13.5-17.5) Blood Gas Modality Room air FiO2 % 21.0 Blood Gas Critical Value Read Back Yes Blood Gas Notified Whom A mila ernst Blood Gas Notified Time [id number] Blood Gas Notified By Compressor Station Operator magdy koroma Vancomycin Level Trough 28.7 ug/mL (5-10) POC Glucose 87 mg/dl (70-106) Vitamin B12 Level 182 pg/mL (211-911) Vitamin D 25-Hydroxy 13.0 ng/mL (30.0-100) Folic Acid 11.25 ng/mL (>5.38) Free Thyroxine (T4) Calculated 1.01 ng/dL (0.89-1.76) Test 02/02/25 06:07 02/01/25 21:00 02/01/25 14:12 Reticulocyte Count (auto) 0.79 % (0.5-1.5) Prothrombin Time 11.5 sec (9.3-11.8) Prothrombin Time INR 1.09 (0.9-1.15) Activated Partial Thromboplast Time 33.4 SEC (24.5-34.5) Hemoglobin A1c 5.1 % A1C (<5.7) Phosphorus Level 3.3 mg/dL (2.4-5.1) Total Bilirubin 1.0 mg/dL (0.2-1.0) Aspartate Amino Transferase (AST) 24 U/L (13-40) Alanine Aminotransferase (ALT) 22 U/L (7-40) Alkaline Phosphatase 463 U/L (46-116) Total Protein 6.2 g/dL (5.7-8.2) Albumin 3.1 g/dL (3.2-4.8) Thyroid Stimulating Hormone (TSH) 11.61 uIU/mL (0.55-4.78) Parathyroid Hormone (Intact) 84.7 pg/mL (18.4-80.1) Random Vancomycin Level 15.2 ug/mL (5-10) Plasma/Serum Blood Alcohol 4.6 mg/dL (<10) Urine Color Light-yellow (Yellow) Urine Clarity Clear (Clear) Urine pH 6.0 (5.0-9.0) Urine Specific [place] 1.009 (1.001-1.035) Urine Protein Trace (Negative) Urine Ketones Negative (Negative) Urine Blood Negative /uL (Negative) Urine Nitrite Negative (Negative) Urine Bilirubin Negative (Negative) Urine Urobilinogen Normal mg/dL (Negative) Urine Leukocyte Esterase Negative /uL (Negative) Urine RBC <1 /hpf (0 - 3) Urine Microscopic WBC < 1 /HPF (0-3) Urine Squamous Epithelial Cells None seen /hpf (<5) Urine Bacteria None seen /hpf (None Seen) Urine Creatinine 27.52 mg/dL (30.0-125.0) Urine Protein/Creatinine Ratio 1.19 Urine Sodium 64 mmol/L (40-220) Urine Glucose Normal mg/dL (Normal) Urine Total Protein 32.8 mg/dL (1-14) Urine Opiates Screen Neg (NEGATIVE) Urine Fentanyl Screen Neg (NEGATIVE) Urine Barbiturates Screen Neg (NEGATIVE) Urine Phencyclidine Screen Neg (NEGATIVE) Urine Amphetamines Screen Neg (NEGATIVE) Urine Benzodiazepines Screen Neg (NEGATIVE) Urine Cocaine Screen Neg (NEGATIVE) Urine Cannabinoids Screen Neg (NEGATIVE) Erythrocyte Sedimentation Rate 40 mm/hr (0-20) Lactic Acid Level 1.1 mmol/L (0.4-2.0) Troponin I High Sensitivity 8 ng/L (</=54) C-Reactive Protein High Sensitivity 1.63 mg/dL (<1.0) B-Type Natriuretic Peptide 2901.36 pg/mL (0-100) Other Laboratory Tests 02/13/25 07:55 Brief Hx & Hospital Course: Patient is a 59-year-old male with past medical history of HFrEF EF15%, type 2 diabetes mellitus, hypertension, hyperlipidemia, has left BKA and right AKA. Patient came to the ED with chief complaint of bilateral leg swelling, a blister on the left stump, which is draining fluid since 1 month. The blister on the right stump was present since 1 week,states he had some pain and redness around the blister. Patient has been in rehab since 4 months in [facility]. Patient was recently admitted in this facility on October 2024 for Sepsis secondary to bilateral lower extremity cellulitis., and was discharged with vanc and Zosyn for 2 weeks. Wound consult was placed. past surgical history: CABG surgery in [place], S/P PCI with 2 stents. ESR was elevated, chest x-ray shows Probable pulmonary edema. An underlying pneumonia in the right lower lung zone can not be excluded. Venous Doppler shows No evidence of deep vein thrombosis. X-ray tibia/ fibula showed Below- knee amputation. No acute fracture identified. No retained radiopaque foreign body. Patient had vitamin-D deficiency, was supplemented vitamin-D 5000 units per week. Patient was started on IV vancomycin , cefepime, furosemide 40 mg b.i.d. Wound culture came back positive for Enterococcus faecalis and IV vancomycin was changed to IV Zyvox 600 mg. furosemide was increased to 40 mg IV t.i.d. social service was consulted for resuming SNF for placement. patient furosemide was increased to 60mg TID. Repeat chest xray showed Moderate right- sided pleural effusion with associated atelectasis / pneumonia ; improved from prior imaging. Trace left-sided pleural effusion with associated atelectasis. Nephrology was consulted due to increasing creatinine, and recommended furosemide has be decreased to 40mg B.i.d. potassium replaced. Wound care has been done. Patient's needs physical therapy, social service is consulted for SNF placement for physical therapy. The patient and bed is available. Discharge patient with Zyvox 600 mg p.o. for five days, furosemide 40 mg p.o. daily. Advised patient to follow up with PCP in one week Condition at Discharge: Fair Final Diagnosis/Problems List # acute RLE stump infection # possible acute cellulitis of left stump # history of right below-knee amputation # history of left above-knee amputation #acute hypoxic resp failure # Acute on chronic CHF, HFrEF, NYHA- 3, EF 15% # Pul edema # Uncontrolled hypertension # Acute JEREMÍAS on CKD 3a # anemia likely d/t ckd # vitamin-D deficiency #Hypokalemia # anemia of chronic disease # hyperlipidemia #obesity- BMI-36.7 Discharge Disposition: [facility] Facility Discharge Instruct/Medications Diet: Regular Activity: No Restrictions, As Tolerated Follow Up/Referral: Follow-up with PCP in 1 week Medications: Zyvox 600 mg PO Q12 hrs for 5 days Lasix 40 mg PO daily Resume home medication Scheduled Acetaminophen (Tylenol), 325 MG PO 6XD, (Reported) Acetaminophen (Tylenol), 325 MG PO QID, (Reported) Aspirin (Aspirin Low Dose), 1 TAB PO QAM, (Reported) Atorvastatin Calcium (Atorvastatin Calcium), 1 TAB PO DAILY, (Reported) Docusate Sodium (Colace), 1 CAP PO BID, (Reported) Furosemide (Lasix), 40 MG PO DAILY Levofloxacin Hemihydrate (Levaquin 500 Mg), 1 TAB PO DAILY, (Reported) Linezolid (Zyvox), 600 MG PO BID Lisinopril (Lisinopril), 1 TAB PO DAILY, (Reported) Metoclopramide HCl (Metoclopramide Hydrochlor), 1 TAB PO TID, (Reported) Nifedipine (Nifedipine Er), 1 TAB PO DAILY, (Reported) Omeprazole (Gnp Omeprazole), 1 TAB PO DAILY, (Reported) Potassium Chloride (Klor-Con M20), 20 MEQ PO DAILY, (Reported) Tamsulosin Hcl (Tamsulosin Hcl), 1 CAP PO HS, (Reported) Discharge Statement: "Patient was advised to return to the ER or call 911 if any headaches, dizziness, shortness of breath, chest pain, abdominal pain, bleeding, fevers, or worsening of medical condition. Patient was counseled about treatment plan, medications, possible side effects, patientverbalized understanding. All questions were answered to the best of my ability. This discharge took greater then 30 minutes in planning, reviewing documentation, counseling the patient, and discussing with other team members." ASSESSMENT ASSESSMENT Assessment # acute RLE stump infection # possible acute cellulitis of left stump # history of right below-knee amputation # history of left above-knee amputation #acute hypoxic resp failure # Acute on chronic CHF, HFrEF, NYHA- 3, EF 15% # Pul edema # Uncontrolled hypertension # Acute JEREMÍAS on CKD 3a # anemia likely d/t ckd # vitamin-D deficiency #Hypokalemia # anemia of chronic disease # hyperlipidemia #obesity- BMI-36.7 Date of Service: Feb 13, 2025 Billing Provider: FELIPE TRAORE MD Common Visit Codes: [id number] DISCH DAY >30min DAVID BOONE Feb 13, 2025 14:57 FELIPE TRAORE MD Feb 15, 2025 10:21
--- NOTE | 2025-02-13 16:54 | DVHPN2 ---
Progress Note Date Seen: Feb 13, 2025 Has the PT tested + for MRSA If YES, has PT been informed?: Yes Medical Necessity Reason Pt with a Central, PICC or Fol: No Subjective Patient reports: No new complaints Objective vital signs Vital Sign Date Time Temp Pulse Resp B/P (MAP) Pulse Ox O2 Delivery O2 Flow Rate FiO2 02/13/25 16:51 97.8 73 16 153/94 (113) 98 97.8 02/13/25 08:00 Room Air* 0 21 Total Intake and Output 02/12/25 02/12/25 02/13/25 15:00 23:00 07:00 Intake Total 300 ml 540 ml 810 ml Output Total 700 ml 1000 ml Balance 300 ml -160 ml -190 ml medications Current Medications Medications Dose Ordered Sig/Margo Route Start Time Stop Time Status Last Admin Dose Admin Aspirin 81 mg QAM PO 02/02/25 07:00 02/13/25 06:18 81 MG Tamsulosin HCl 0.4 mg HS PO 02/01/25 22:00 02/12/25 21:11 0.4 MG Atorvastatin Calcium 80 mg HS PO 02/01/25 22:00 02/12/25 21:10 80 MG Ondansetron HCl 4 mg Q4HP PRN IV 02/01/25 17:30 Docusate Sodium 100 mg BIDPRN PRN PO 02/01/25 17:30 Nitroglycerin 0.4 mg Q5MINP PRN SL 02/01/25 17:30 Ergocalciferol 50,000 unit Q7D PO 02/02/25 14:15 02/02/25 14:44 50,000 UNIT Acetaminophen 650 mg Q6HP PRN PO 02/02/25 17:00 02/02/25 20:25 650 MG Enteral Nutritional Formula 240 ml TIDWM PO 02/02/25 18:00 02/13/25 12:00 240 ML Linezolid 300 ml @ 150 mls/hr Q12HR IV 02/04/25 22:00 02/13/25 09:04 150 MLS/HR Pantoprazole Sodium 40 mg DAILY IV 02/06/25 10:00 02/13/25 09:04 40 MG Carvedilol 6.25 mg Q12HR PO 02/08/25 10:00 02/13/25 09:04 6.25 MG Hydralazine HCl 25 mg Q12HR PO 02/11/25 22:00 02/13/25 09:04 25 MG Furosemide 20 mg BIDD IV 02/13/25 09:00 laboratory and microbiology Laboratory Tests 02/13/25 07:55 Test 02/13/25 07:55 Range/Units Serum Glucose 83 74-106 mg/dL Microbiology Date/Time Source Procedure Growth Status 02/06/25 17:50 Pleural Fluid Gram Stain - Final Complete 02/06/25 17:50 Pleural Fluid Body Fluid Culture - Final Complete 02/02/25 13:10 Blood Blood Culture - Final NO GROWTH AFTER 5 DAYS OF INCUBATION. Complete 02/01/25 23:45 Leg Gram Stain - Final Complete 02/01/25 23:45 Wound Culture - Final Enterococcus faecalis Complete Problem List/Assessment/Plan Problem List/Assessment/Plan Acute kidney injury superimposed Chronic Kidney Disease secondary hemodynamic mediated, ATN, FeNa > 2% Vancomycin nephrotoxicity Right lower extremity stump cellulitis Congestive heart failure, ejection fraction 15% Hyponatremia due to excess H2O Diabetes mellitus type 2 Mild proteinuria due to underlying diabetic nephropathy Hypertension Peripheral arterial disease AFib Anemia of chronic kidney disease recs Reduced the Lasix dose--change to po lasix home dose at dc Overall negative balance Plan discussed with: Other Dietary Evaluation Review Comments: Nutrition Recommendation 1) Ensure high protein 240ml BID 2) Kofi 1 pk BID 3) Monitor PO intake, lab values, weight trend, and I/O Expected Outcomes/Goals: Wound to improve Fu 3-5 days SHAYY DILLARD MD Feb 13, 2025 16:54
[2025-02-14] VITALS (7 sets, daily range): BP systolic 131–153; BP diastolic 69–93; PULSE 66–77; RESP 16–17; TEMP 97.6–98; O2SAT 93–98
--- NOTE | 2025-02-14 09:59 | DVHPNRES ---
Progress Note Date Seen: Feb 14, 2025 Resident Creating Document: ALBARO BARRIOS RESIDENT Has the PT tested + for MRSA If YES, has PT been informed?: Yes Medical Necessity Reason Pt with a Central, PICC or Fol: No Subjective Review of Systems Patient is seen today at bedside. Labs and chart reviewed. No acute distress, waiting for approval from [facility] for physical therapy. Spoke to social and political studies professor to [employer], reported she will give me a heads up once there is an update. Today Social service [place] wrote -Re-Assessment Re: SS Consult for SNF Placement for PT Contacted Jazzy at [facility] [phone]. Per Jazzy she would not be the one reviewing and Joseph would be reviewing the referral. Contacted [facility] [phone], there was no answer and a voicemail with call back number was left. Pending review. Objective vital signs Vital Sign Date Time Temp Pulse Resp B/P (MAP) Pulse Ox O2 Delivery O2 Flow Rate FiO2 02/14/25 08:50 97.6 73 17 139/81 (100) 98 97.6 02/14/25 08:00 Room Air* 0 21 Total Intake and Output 02/13/25 02/13/25 02/14/25 15:00 23:00 07:00 Intake Total 300 ml 390 ml 800 ml Output Total 300 ml 580 ml Balance 300 ml 90 ml 220 ml medications Current Medications Medications Dose Ordered Sig/Margo Route Start Time Stop Time Status Last Admin Dose Admin Aspirin 81 mg QAM PO 02/02/25 07:00 02/14/25 06:19 81 MG Tamsulosin HCl 0.4 mg HS PO 02/01/25 22:00 02/13/25 23:15 0.4 MG Atorvastatin Calcium 80 mg HS PO 02/01/25 22:00 02/13/25 23:16 80 MG Ondansetron HCl 4 mg Q4HP PRN IV 02/01/25 17:30 Docusate Sodium 100 mg BIDPRN PRN PO 02/01/25 17:30 Nitroglycerin 0.4 mg Q5MINP PRN SL 02/01/25 17:30 Ergocalciferol 50,000 unit Q7D PO 02/02/25 14:15 02/02/25 14:44 50,000 UNIT Acetaminophen 650 mg Q6HP PRN PO 02/02/25 17:00 02/02/25 20:25 650 MG Enteral Nutritional Formula 240 ml TIDWM PO 02/02/25 18:00 02/13/25 18:07 240 ML Linezolid 300 ml @ 150 mls/hr Q12HR IV 02/04/25 22:00 02/13/25 23:15 150 MLS/HR Pantoprazole Sodium 40 mg DAILY IV 02/06/25 10:00 02/13/25 09:04 40 MG Carvedilol 6.25 mg Q12HR PO 02/08/25 10:00 02/13/25 23:16 6.25 MG Hydralazine HCl 25 mg Q12HR PO 02/11/25 22:00 02/13/25 23:16 25 MG Furosemide 20 mg BIDD IV 02/13/25 09:00 02/14/25 06:19 20 MG Examination General: Patient alert and oriented in person, place and time. Patient following commands. HEENT: Normocephalic, atraumatic, moist mucous membranes Respiratory/pulmonary: Rales heard on Auscultation on right side Cardiovascular: Normal heart sounds S1 and S2 with no associated murmurs Abdomen: Abdomen nondistended, there is no pain to palpation in any of the abdominal quadrants, no palpable masses. Extremities: Right BKA, left AKA, 2+ bilateral lower extremity pitting edema, with discharge from right stump, Scrotal swelling Peripheral Pulses: 3+ Radial (R). 3+ Radial (L). 3+ Dorsalis pedis (R). 3+ Dorsalis pedis(L) Skin: No rashes or pruritus, there is no sacral edema present at this time. Neurological: Intact cranial nerves with no focal neurologic deficits. laboratory and microbiology Laboratory Tests 02/13/25 07:55 Test 02/13/25 07:55 Range/Units Serum Glucose 83 74-106 mg/dL Microbiology Date/Time Source Procedure Growth Status 02/06/25 17:50 Pleural Fluid Gram Stain - Final Complete 02/06/25 17:50 Pleural Fluid Body Fluid Culture - Final Complete 02/02/25 13:10 Blood Blood Culture - Final NO GROWTH AFTER 5 DAYS OF INCUBATION. Complete 02/01/25 23:45 Leg Gram Stain - Final Complete 02/01/25 23:45 Wound Culture - Final Enterococcus faecalis Complete Problem List/Assessment/Plan Problem List/Assessment/Plan Assessment and plan # acute RLE stump infection # possible acute cellulitis of left stump # history of right below-knee amputation # history of left above-knee amputation - x-ray showed Below-knee amputation. No acute fracture identified. No retained radiopaque foreign body. - venous Doppler showed No evidence of deep vein thrombosis. - ordered wound consult done - wound cultures done and shows Enterococcus faecalis - patient starting on Zyvox 600 mg q.12, cefepime - patient stopped on IV vancomycin - both legs are elevated - Metolozone 5mg given - given morphine 2 mg for pain #acute hypoxic resp failure # Acute on chronic CHF, HFrEF, NYHA- 3, EF 15% # Pul edema # Uncontrolled hypertension - troponins negative - held lisinopril - previous echo showed EF of 15% on 11/05/2024 -cardiologic consult appreciated and recommends: Initiate guideline directed medical therapy for CHF as renal function permits - Stop calcium channel arin as this is contraindicated in HFrEF patients - Unable to initiate ARNI/ACEi/ARB, MRA or SLT2i given poor renal function at this time - Strict intake and output, daily weights, maintain fluid restriction and a low- sodium diet - pleural tap was done with 800 mL fluid removed - pleural fluid protein, WBC, culture, LDH was ordered - furosemide 40mg b.i.d # Acute JEREMÍAS on CKD 3a # anemia likely d/t ckd - strict I&Os - IV fluids given -FeNA- 2.6% # vitamin-D deficiency - vitamin-D 38880 units per week given #Hypokalemia - replated potassium # anemia of chronic disease # hyperlipidemia - continue atorvastatin #obesity- BMI-36.7 PPD PPX: Not indicated DVT PPX: Lovenox Possible discharge tomorrow Goals of care addressed with the patient for more than 24 minutes: Full code status Case discussed with Dr. Pastrana, Plan discussed with: Patient Plan discussed with: Patient, Other (RN) Dietary Evaluation Review Comments: Nutrition Recommendation 1) Ensure high protein 240ml BID 2) Kofi 1 pk BID 3) Monitor PO intake, lab values, weight trend, and I/O Expected Outcomes/Goals: Wound to improve Fu 3-5 days Date of Service: Feb 14, 2025 Billing Provider: FELIPE PASTRANA MD Common Visit Codes: [id number] INP/OBS CARE(HIGH) ALBARO BARRIOS RESIDENT Feb 14, 2025 09:59 FELIPE PASTRANA MD Feb 15, 2025 10:22
--- NOTE | 2025-02-14 15:10 | DVHPN2 ---
Progress Note Date Seen: Feb 14, 2025 Has the PT tested + for MRSA If YES, has PT been informed?: Yes Medical Necessity Reason Pt with a Central, PICC or Fol: No Subjective Patient reports: No new complaints Objective vital signs Vital Sign Date Time Temp Pulse Resp B/P (MAP) Pulse Ox O2 Delivery O2 Flow Rate FiO2 02/14/25 13:27 98.0 74 16 136/78 (97) 97 98.0 02/14/25 08:00 Room Air* 0 21 Total Intake and Output 02/13/25 02/13/25 02/14/25 15:00 23:00 07:00 Intake Total 300 ml 390 ml 800 ml Output Total 300 ml 580 ml Balance 300 ml 90 ml 220 ml medications Current Medications Medications Dose Ordered Sig/Margo Route Start Time Stop Time Status Last Admin Dose Admin Aspirin 81 mg QAM PO 02/02/25 07:00 02/14/25 06:19 81 MG Tamsulosin HCl 0.4 mg HS PO 02/01/25 22:00 02/13/25 23:15 0.4 MG Atorvastatin Calcium 80 mg HS PO 02/01/25 22:00 02/13/25 23:16 80 MG Ondansetron HCl 4 mg Q4HP PRN IV 02/01/25 17:30 Docusate Sodium 100 mg BIDPRN PRN PO 02/01/25 17:30 Nitroglycerin 0.4 mg Q5MINP PRN SL 02/01/25 17:30 Ergocalciferol 50,000 unit Q7D PO 02/02/25 14:15 02/02/25 14:44 50,000 UNIT Acetaminophen 650 mg Q6HP PRN PO 02/02/25 17:00 02/02/25 20:25 650 MG Enteral Nutritional Formula 240 ml TIDWM PO 02/02/25 18:00 02/14/25 13:40 240 ML Linezolid 300 ml @ 150 mls/hr Q12HR IV 02/04/25 22:00 02/14/25 11:00 150 MLS/HR Pantoprazole Sodium 40 mg DAILY IV 02/06/25 10:00 02/14/25 10:57 40 MG Carvedilol 6.25 mg Q12HR PO 02/08/25 10:00 02/14/25 10:59 6.25 MG Hydralazine HCl 25 mg Q12HR PO 02/11/25 22:00 02/14/25 10:58 25 MG Furosemide 20 mg BIDD IV 02/13/25 09:00 02/14/25 06:19 20 MG laboratory and microbiology Laboratory Tests 02/13/25 07:55 Test 02/13/25 07:55 Range/Units Serum Glucose 83 74-106 mg/dL Microbiology Date/Time Source Procedure Growth Status 02/06/25 17:50 Pleural Fluid Gram Stain - Final Complete 02/06/25 17:50 Pleural Fluid Body Fluid Culture - Final Complete 02/02/25 13:10 Blood Blood Culture - Final NO GROWTH AFTER 5 DAYS OF INCUBATION. Complete 02/01/25 23:45 Leg Gram Stain - Final Complete 02/01/25 23:45 Wound Culture - Final Enterococcus faecalis Complete Problem List/Assessment/Plan Problem List/Assessment/Plan Acute kidney injury superimposed Chronic Kidney Disease secondary hemodynamic mediated, ATN, FeNa > 2% Vancomycin nephrotoxicity Right lower extremity stump cellulitis Congestive heart failure, ejection fraction 15% Hyponatremia due to excess H2O Diabetes mellitus type 2 Mild proteinuria due to underlying diabetic nephropathy Hypertension Peripheral arterial disease AFib Anemia of chronic kidney disease recs Reduced the Lasix dose--change to po lasix home dose at dc check labs in AM Plan discussed with: Patient My Orders My Orders Orders - SHAYY DILLARD MD Procedure Category Date Status Time Chest Two Views XY 02/14/25 Logged Routine 15:03 Dietary Evaluation Review Comments: Nutrition Recommendation 1) Ensure high protein 240ml BID 2) Kofi 1 pk BID 3) Monitor PO intake, lab values, weight trend, and I/O Expected Outcomes/Goals: Wound to improve Fu 3-5 days SHAYY DILLARD MD Feb 14, 2025 15:10
--- NOTE | 2025-02-14 16:20 | DVH ---
CHEST RADIOGRAPH REASON FOR EXAM: r/o edema. Shortness of breath. COMPARISON: XY CHEST XRAY 1 VIEW on DOS: 02/06/25, XY CHEST XRAY 1 VIEW on DOS: 02/06/25, XY CHEST PORT ABLE on DOS: 02/01/25, XY CHEST PORTABLE on DOS: 11/04/24 TECHNIQUE: One view of the chest is provided FINDINGS: The cardiomediastinal silhouette is stable. There are surgical changes in the mediastinum. There is diffuse interstitial prominence with mild scattered airspace disease consistent with pulmon bola edema. There is moderate to large right pleural effusion. There is small left pleural effusion. T here is no pneumothorax. No acute osseous abnormality is identified. IMPRESSION: Pulmonary edema. Moderate to large right pleural effusion. Small left pleural effusion.
[2025-02-15 01:00] VITALS: BP 138/78; PULSE 69; RESP 16; TEMP 97.8; O2SAT 97
[2025-02-15 05:00] VITALS: BP 146/85; PULSE 74; RESP 17; TEMP 97.6; O2SAT 96
[2025-02-15 08:10] LABS: Hematocrit 29.3 % (41.0-53.0); Hemoglobin 10.0 g/dL (13.5-17.5); Mean Corpuscular Hemoglobin 31.7 pg (28.0-32.0); Mean Corpuscular Volume 92.3 fL (80.0-100.0); Nucleated Red Blood Cells % 0.0 %
[2025-02-15 08:28] LABS: Anion Gap 9 (5-15); Carbon Dioxide 30 mmol/L (20-31); Potassium 3.5 mmol/L (3.5-5.1)
[2025-02-15 08:30] LABS: Calcium 8.5 mg/dL (8.7-10.4); Chloride 90 mmol/L (98-107); Sodium 129 mmol/L (136-145)
[2025-02-15 08:34] LABS: Glucose 80 mg/dL (74-106)
[2025-02-15 08:35] LABS: BUN/Creatinine Ratio 18.5 (10.0-20.0)
[2025-02-15 08:38] LABS: Blood Urea Nitrogen 31 mg/dL (9-23)
[2025-02-15 09:00] VITALS: BP 136/77; PULSE 75; RESP 16; TEMP 97.9; O2SAT 95
[2025-02-15] MEDS: LACTULOSE 20Gm/30ML SOLN PO ONE (10:45)
[2025-02-15 13:00] VITALS: BP 133/82; PULSE 68; RESP 18; TEMP 98; O2SAT 95
[2025-02-15 17:00] VITALS: BP 144/83; PULSE 72; RESP 18; TEMP 97.9; O2SAT 96
--- NOTE | 2025-02-15 17:11 | DVHPN2 ---
Progress Note Date Seen: Feb 15, 2025 Has the PT tested + for MRSA If YES, has PT been informed?: Yes Medical Necessity Reason Pt with a Central, PICC or Fol: No Subjective Patient reports: Other Review of Systems: Deferred Objective vital signs Vital Sign Date Time Temp Pulse Resp B/P (MAP) Pulse Ox O2 Delivery O2 Flow Rate FiO2 02/15/25 13:00 98.0 68 18 133/82 (99) 95 98.0 02/15/25 08:13 Room Air* 0 21 Total Intake and Output 02/14/25 02/14/25 02/15/25 14:59 22:59 06:59 Intake Total 350 ml 500 ml Output Total 1050 ml 550 ml Balance -700 ml -50 ml medications Current Medications Medications Dose Ordered Sig/Margo Route Start Time Stop Time Status Last Admin Dose Admin Aspirin 81 mg QAM PO 02/02/25 07:00 02/15/25 06:09 81 MG Tamsulosin HCl 0.4 mg HS PO 02/01/25 22:00 02/14/25 21:28 0.4 MG Atorvastatin Calcium 80 mg HS PO 02/01/25 22:00 02/14/25 21:28 80 MG Ondansetron HCl 4 mg Q4HP PRN IV 02/01/25 17:30 Docusate Sodium 100 mg BIDPRN PRN PO 02/01/25 17:30 Nitroglycerin 0.4 mg Q5MINP PRN SL 02/01/25 17:30 Ergocalciferol 50,000 unit Q7D PO 02/02/25 14:15 02/02/25 14:44 50,000 UNIT Acetaminophen 650 mg Q6HP PRN PO 02/02/25 17:00 02/02/25 20:25 650 MG Enteral Nutritional Formula 240 ml TIDWM PO 02/02/25 18:00 02/15/25 13:40 240 ML Linezolid 300 ml @ 150 mls/hr Q12HR IV 02/04/25 22:00 02/15/25 10:42 150 MLS/HR Pantoprazole Sodium 40 mg DAILY IV 02/06/25 10:00 02/15/25 10:40 40 MG Carvedilol 6.25 mg Q12HR PO 02/08/25 10:00 02/15/25 10:44 6.25 MG Hydralazine HCl 25 mg Q12HR PO 02/11/25 22:00 02/15/25 10:45 25 MG Furosemide 20 mg BIDD IV 02/13/25 09:00 02/14/25 18:01 20 MG Lactulose 30 ml DAILYPRN PRN PO 02/16/25 10:00 laboratory and microbiology Laboratory Tests 02/15/25 07:33 Test 02/15/25 07:33 Range/Units Serum Glucose 80 74-106 mg/dL Microbiology Date/Time Source Procedure Growth Status 02/06/25 17:50 Pleural Fluid Gram Stain - Final Complete 02/06/25 17:50 Pleural Fluid Body Fluid Culture - Final Complete 02/02/25 13:10 Blood Blood Culture - Final NO GROWTH AFTER 5 DAYS OF INCUBATION. Complete 02/01/25 23:45 Leg Gram Stain - Final Complete 02/01/25 23:45 Wound Culture - Final Enterococcus faecalis Complete Problem List/Assessment/Plan Problem List/Assessment/Plan Acute kidney injury superimposed Chronic Kidney Disease secondary hemodynamic mediated, ATN, FeNa > 2% Vancomycin nephrotoxicity Right lower extremity stump cellulitis Congestive heart failure, ejection fraction 15% Hyponatremia due to excess H2O Diabetes mellitus type 2 Mild proteinuria due to underlying diabetic nephropathy Hypertension Peripheral arterial disease AFib Anemia of chronic kidney disease recs Reduced the Lasix dose--change to po lasix home dose at dc stable renal function Plan discussed with: Other Dietary Evaluation Review Comments: Nutrition Recommendation 1) Ensure high protein 240ml BID 2) Kofi 1 pk BID 3) Monitor PO intake, lab values, weight trend, and I/O Expected Outcomes/Goals: Wound to improve Fu 3-5 days SHAYY DILLARD MD Feb 15, 2025 17:11
--- NOTE | 2025-02-15 18:19 | DVHPNRES ---
Progress Note Date Seen: Feb 15, 2025 Resident Creating Document: ALBARO BARRIOS RESIDENT Has the PT tested + for MRSA If YES, has PT been informed?: Yes Medical Necessity Reason Pt with a Central, PICC or Fol: No Subjective Review of Systems Patient was seen today at bedside, labs and chart reviewed. No acute complaint, patient is being discharged to SNF. Objective vital signs Vital Sign Date Time Temp Pulse Resp B/P (MAP) Pulse Ox O2 Delivery O2 Flow Rate FiO2 02/15/25 18:02 145/71 02/15/25 17:00 97.9 72 18 96 97.9 02/15/25 08:13 Room Air* 0 21 Total Intake and Output 02/14/25 02/14/25 02/15/25 15:00 23:00 07:00 Intake Total 350 ml 500 ml Output Total 1050 ml 550 ml Balance -700 ml -50 ml medications Current Medications Medications Dose Ordered Sig/Margo Route Start Time Stop Time Status Last Admin Dose Admin Aspirin 81 mg QAM PO 02/02/25 07:00 02/15/25 06:09 81 MG Tamsulosin HCl 0.4 mg HS PO 02/01/25 22:00 02/14/25 21:28 0.4 MG Atorvastatin Calcium 80 mg HS PO 02/01/25 22:00 02/14/25 21:28 80 MG Ondansetron HCl 4 mg Q4HP PRN IV 02/01/25 17:30 Docusate Sodium 100 mg BIDPRN PRN PO 02/01/25 17:30 Nitroglycerin 0.4 mg Q5MINP PRN SL 02/01/25 17:30 Ergocalciferol 50,000 unit Q7D PO 02/02/25 14:15 02/02/25 14:44 50,000 UNIT Acetaminophen 650 mg Q6HP PRN PO 02/02/25 17:00 02/02/25 20:25 650 MG Enteral Nutritional Formula 240 ml TIDWM PO 02/02/25 18:00 02/15/25 18:02 240 ML Linezolid 300 ml @ 150 mls/hr Q12HR IV 02/04/25 22:00 02/15/25 10:42 150 MLS/HR Pantoprazole Sodium 40 mg DAILY IV 02/06/25 10:00 02/15/25 10:40 40 MG Carvedilol 6.25 mg Q12HR PO 02/08/25 10:00 02/15/25 10:44 6.25 MG Hydralazine HCl 25 mg Q12HR PO 02/11/25 22:00 02/15/25 10:45 25 MG Furosemide 20 mg BIDD IV 02/13/25 09:00 02/15/25 18:02 20 MG Lactulose 30 ml DAILYPRN PRN PO 02/16/25 10:00 Examination General: Patient alert and oriented in person, place and time. Patient following commands. HEENT: Normocephalic, atraumatic, moist mucous membranes Respiratory/pulmonary: Rales heard on Auscultation on right side Cardiovascular: Normal heart sounds S1 and S2 with no associated murmurs Abdomen: Abdomen nondistended, there is no pain to palpation in any of the abdominal quadrants, no palpable masses. Extremities: Right BKA, left AKA, 2+ bilateral lower extremity pitting edema, with discharge from right stump, Scrotal swelling Peripheral Pulses: 3+ Radial (R). 3+ Radial (L). 3+ Dorsalis pedis (R). 3+ Dorsalis pedis(L) Skin: No rashes or pruritus, there is no sacral edema present at this time. Neurological: Intact cranial nerves with no focal neurologic deficits. laboratory and microbiology Laboratory Tests 02/15/25 07:33 Test 02/15/25 07:33 Range/Units Serum Glucose 80 74-106 mg/dL Microbiology Date/Time Source Procedure Growth Status 02/06/25 17:50 Pleural Fluid Gram Stain - Final Complete 02/06/25 17:50 Pleural Fluid Body Fluid Culture - Final Complete 02/02/25 13:10 Blood Blood Culture - Final NO GROWTH AFTER 5 DAYS OF INCUBATION. Complete 02/01/25 23:45 Leg Gram Stain - Final Complete 02/01/25 23:45 Wound Culture - Final Enterococcus faecalis Complete Problem List/Assessment/Plan Problem List/Assessment/Plan Assessment and plan # acute RLE stump infection # possible acute cellulitis of left stump # history of right below-knee amputation # history of left above-knee amputation - x-ray showed Below-knee amputation. No acute fracture identified. No retained radiopaque foreign body. - venous Doppler showed No evidence of deep vein thrombosis. - ordered wound consult done - wound cultures done and shows Enterococcus faecalis - patient starting on Zyvox 600 mg q.12, cefepime - patient stopped on IV vancomycin - both legs are elevated - Metolozone 5mg given - given morphine 2 mg for pain #acute hypoxic resp failure # Acute on chronic CHF, HFrEF, NYHA- 3, EF 15% # Pul edema # Uncontrolled hypertension - troponins negative - held lisinopril - previous echo showed EF of 15% on 11/05/2024 -cardiologic consult appreciated and recommends: Initiate guideline directed medical therapy for CHF as renal function permits - Stop calcium channel arin as this is contraindicated in HFrEF patients - Unable to initiate ARNI/ACEi/ARB, MRA or SLT2i given poor renal function at this time - Strict intake and output, daily weights, maintain fluid restriction and a low- sodium diet - pleural tap was done with 800 mL fluid removed - pleural fluid protein, WBC, culture, LDH was ordered - furosemide 40mg b.i.d # Acute JEREMÍAS on CKD 3a # anemia likely d/t ckd - strict I&Os - IV fluids given -FeNA- 2.6% # vitamin-D deficiency - vitamin-D 05428 units per week given #Hypokalemia - replated potassium # anemia of chronic disease # hyperlipidemia - continue atorvastatin #obesity- BMI-36.7 PPD PPX: Not indicated DVT PPX: Lovenox Possible discharge tomorrow Goals of care addressed with the patient for more than 24 minutes: Full code status Case discussed with Dr. Flores Plan discussed with: Patient Plan discussed with: Patient, Other (RN) My Orders My Orders Orders - ALBARO BARRIOS Procedure Category Date Status Time Lactulose Oral PHA 02/16/25 In Process 10:00 D/C [place] SOLO 02/15/25 In Process 16:29 Dietary Evaluation Review Comments: Nutrition Recommendation 1) Ensure high protein 240ml BID 2) Kofi 1 pk BID 3) Monitor PO intake, lab values, weight trend, and I/O Expected Outcomes/Goals: Wound to improve Fu 3-5 days ALBARO BARRIOS Feb 15, 2025 18:19
[2025-02-15 21:00] VITALS: BP 147/84; PULSE 78; RESP 18; TEMP 97.6; O2SAT 96
[2025-02-16] MEDS ORDERED: LACTULOSE 20Gm/30ML SOLN PO PRN (10:00)
== END 2025-02-15 21:23 | DRG 564 ==
LOC: ER 13:36 → EDBD 13:36 → OVERFLOW 17:26 → TELE-WESTW 19:50 → WEST WING 02-07 07:59 → TELE-WESTW 02-12 12:07 → WEST WING 02-14 14:05
PROVIDERS: ADMIT Student in an Organized Health Care Education/Training Program; ATTEND Emergency Medicine
DX: T87.43 Infection of amputation stump, right lower extremity (principal); I50.43 Acute on chronic combined systolic (congestive) and diastolic (congestive) heart failure; J96.01 Acute respiratory failure with hypoxia; L03.116 Cellulitis of left lower limb; E87.1 Hypo-osmolality and hyponatremia; L03.115 Cellulitis of right lower limb; I13.0 Hypertensive heart and chronic kidney disease with heart failure and stage 1 through stage 4 chronic kidney disease, or unspecified chronic kidney disease; N17.9 Acute kidney failure, unspecified; I27.20 Pulmonary hypertension, unspecified; D63.1 Anemia in chronic kidney disease; N18.31 Chronic kidney disease, stage 3a; E66.9 Obesity, unspecified; I07.1 Rheumatic tricuspid insufficiency; E11.22 Type 2 diabetes mellitus with diabetic chronic kidney disease; E11.51 Type 2 diabetes mellitus with diabetic peripheral angiopathy without gangrene; Z68.36 Body mass index [BMI] 36.0-36.9, adult; B95.2 Enterococcus as the cause of diseases classified elsewhere; E78.5 Hyperlipidemia, unspecified; E55.9 Vitamin D deficiency, unspecified; I48.91 Unspecified atrial fibrillation; I49.3 Ventricular premature depolarization; I25.10 Atherosclerotic heart disease of native coronary artery without angina pectoris; I25.5 Ischemic cardiomyopathy; E87.6 Hypokalemia; N14.19 Nephropathy induced by other drugs, medicaments and biological substances; T36.8X5A Adverse effect of other systemic antibiotics, initial encounter; Z88.0 Allergy status to penicillin; Z95.5 Presence of coronary angioplasty implant and graft; Z95.1 Presence of aortocoronary bypass graft; Z91.199 Patient's noncompliance with other medical treatment and regimen due to unspecified reason; Z89.612 Acquired absence of left leg above knee; Z89.611 Acquired absence of right leg above knee; Z89.512 Acquired absence of left leg below knee; Z83.3 Family history of diabetes mellitus; Z82.49 Family history of ischemic heart disease and other diseases of the circulatory system; Z74.01 Bed confinement status; Y83.5 Amputation of limb(s) as the cause of abnormal reaction of the patient, or of later complication, without mention of misadventure at the time of the procedure; Y92.89 Other specified places as the place of occurrence of the external cause
CPT/HCPCS: 36415; 36600; 71045; 73590; 80048; 80053; 80202; 80307; 80320; 81001; 82306; 82565; 82570; 82607; 82746; 82805; 82962; 83036; 83605; 83615; 83735; 83880; 83970; 84100; 84156; 84300; 84439; 84443; 84484; 85025; 85045; 85610; 85652; 85730; 86141; 87040; 87077; 87081; 87186; 87205; 89051; 93005; 93926; 93970; 96365; 96375; 97110; 97163; 97530; G0378; J0692; J2470; J3490